=== PATIENT | female | born 1995 | race Caucasian/White ===

== ENCOUNTER 2016-11-29 10:19 | Emergency (ER) | payer MEDICAID ==
[~2016-11-29 10:19] MED LIST: GEOD60CA PO; LAMO100 PO; LORA-392 PO; MIRA33504 PO; SENN1TAB2 PO; TRIL600T PO; ZIPR20 PO; ZOFR4TAB3 SL; ZONI100C2 PO
[2016-11-29 10:21] VITALS: BP 126/73; PULSE 92; RESP 17; TEMP 98.8; O2SAT 96
[2016-11-29] MEDS ORDERED: OXCA300T PO (10:37)
--- NOTE | 2016-11-29 10:53 | PD ---
HPI Chief Complaint: Seizure Time Seen by Provider: 10:26 Travel History International Travel<30 days: No Contact w/Intl Traveler<30days: No Traveled to known affect area: No History of Present Illness HPI So 21 year-old woman with a history of cerebral palsy, seizures, BUSINESS CHANGE MANAGER shunt, vagal stimulator, who presents to the emergency department complaining of a seizure this morning. She gets seizures every couple months. They're usually focal. This morning she had right hand shaking left foot shaking consistent with her previous focal seizures. She also felt scared and confused at the time. It lasted a couple minutes. She feels back to normal now. Patient has been sick with some cough cold symptoms with some low-grade fever. She's been taking her medications otherwise as prescribed. Patient takes Zonegran, Trileptal, Lamictal History Past Medical History Narrative Medical Cerebral palsy Seizures BUSINESS CHANGE MANAGER shunt Vagal stimulator Tetanus Vaccination: > 5 Years Influenza Vaccination: Yes PNEUMOCCOCAL Vaccine (Year): 2 Social History Alcohol Use: No Tobacco Use: No Allergies-Medications (Allergen,Severity, Reaction): Coded Allergies: Cefprozil (Verified Allergy, Severe, Swelling, 11/29/16) Codeine (Verified Allergy, Severe, Nausea/Vomiting, 11/29/16) Vancomycin (Verified Allergy, Severe, Rash, 11/29/16) Reported Meds & Prescriptions Reported Meds & Active Scripts Active Reported Oxcarbazepine 300 Mg Tab 300 Mg PO BID Geodon (Ziprasidone) 60 Mg Cap 60 Mg PO HS Zonisamide 100 Mg Cap 100 Mg PO DAILY Senna-Docusate Sodium (Sennosides-Docusate Sodium) 8.6-50 Mg Tab 1 Tab PO DAILY Zofran Odt (Ondansetron Odt) 4 Mg Tab 4 Mg SL Q6HR PRN Miralax Powder (Polyethylene Glycol 3350 Powder) 17 Gm Powd 17 Gm PO DAILY Mix and dissolve one measuring cap-ful (17 grams) in water or juice. Ativan (Lorazepam) 0.5 Mg Tab 0.5 Mg PO Q6H PRN Lamictal (Lamotrigine) 100 Mg Tab 100 Mg PO BID Review of Systems Except as stated in HPI: all other systems reviewed are Neg Physical Exam Narrative GENERAL: 21-year-old young girl, no acute distress. SKIN: Warm and dry. HEAD: Atraumatic. Normocephalic. EYES: Pupils equal and round. No scleral icterus. No injection or drainage. ENT: No nasal bleeding or discharge. Mucous membranes pink and moist. NECK: Trachea midline. No JVD. CARDIOVASCULAR: Regular rate and rhythm. No murmur appreciated. RESPIRATORY: No accessory muscle use. Clear to auscultation. Breath sounds equal bilaterally. GASTROINTESTINAL: Abdomen soft, non-tender, nondistended. Hepatic and splenic margins not palpable. MUSCULOSKELETAL: Spastic paresis of the right upper extremity, decreased muscle bulk throughout. NEUROLOGICAL: Awake and alert. Evident developmental delay. No obvious cranial nerve deficits. Spastic paresis in the right upper extremity, generalized weakness. Normal speech. Data Data Last Documented VS Vital Signs Date Time Temp Pulse Resp B/P Pulse Ox O2 Delivery O2 Flow Rate FiO2 11/29/16 10:21 98.8 92 17 126/73 96 Room Air Orders Complete Blood Count With Diff (11/29/16 10:36) Comprehensive Metabolic Panel (11/29/16 10:36) Beta Hcg (Quant/Titer) (11/29/16 10:36) Labs Laboratory Tests Test 11/29/16 11:00 White Blood Count 7.3 TH/MM3 Red Blood Count 5.08 MIL/MM3 Hemoglobin 15.3 GM/DL Hematocrit 46.2 % Mean Corpuscular Volume 90.9 FL Mean Corpuscular Hemoglobin 30.0 PG Mean Corpuscular Hemoglobin 33.0 % Concent Red Cell Distribution Width 12.4 % Platelet Count 357 TH/MM3 Mean Platelet Volume 7.5 FL Neutrophils (%) (Auto) 77.5 % Lymphocytes (%) (Auto) 14.6 % Monocytes (%) (Auto) 4.2 % Eosinophils (%) (Auto) 2.2 % Basophils (%) (Auto) 1.5 % Neutrophils # (Auto) 5.6 TH/MM3 Lymphocytes # (Auto) 1.1 TH/MM3 Monocytes # (Auto) 0.3 TH/MM3 Eosinophils # (Auto) 0.2 TH/MM3 Basophils # (Auto) 0.1 TH/MM3 CBC Comment DIFF FINAL Differential Comment Sodium Level 141 MEQ/L Potassium Level 4.4 MEQ/L Chloride Level 108 MEQ/L Carbon Dioxide Level 23.3 MEQ/L Anion Gap 10 MEQ/L Blood Urea Nitrogen 11 MG/DL Creatinine 0.61 MG/DL Estimat Glomerular Filtration 125 ML/MIN Rate Random Glucose 81 MG/DL Calcium Level 8.6 MG/DL Total Bilirubin 0.3 MG/DL Aspartate Amino Transf 17 U/L (AST/SGOT) Alanine Aminotransferase 22 U/L (ALT/SGPT) Alkaline Phosphatase 93 U/L Total Protein 8.1 GM/DL Albumin 3.9 GM/DL Human Chorionic Gonadotropin, LESS THAN 1 Quant MIU/ML MDM Medical Decision Making Medical Screen Exam Complete: Yes Emergency Medical Condition: Yes Interpretation(s) Labs unremarkable. Differential Diagnosis Seizure, URI, electrolyte abnormality, other Narrative Course Medical decision making INITIAL: This a 21-year-old woman CP and seizures who had seizure typical for her, manifest as shaking in the right hand and left leg, started this morning lasted a few minutes. Normally seizures every couple months. Last seizure was a couple months ago. Looks otherwise well. We'll check electrolytes, likely continue current medications outpatient follow-up with her neurologist. Diagnosis Primary Impression: Seizure disorder Additional Instructions: Continue current medications. Follow-up with her seizure doctor for any continued seizures. Return to the emergency department for any persistent seizures lasting more than 5 minutes, seizures with prolonged confusion afterward, or [id number] seizures. Med/Other Pt SpecificInfo: No Change to Meds Disposition: 01 DISCHARGE HOME Condition: Stable Marko Huizar MD Nov 29, 2016 10:53
[2016-11-29 11:07] LABS: AUTOMATED NEUTROPHIL # 5.6 TH/MM3 (1.8-7.7); BASOPHIL # 0.1 TH/MM3 (0-0.2); BASOPHIL % 1.5 % (0.0-2.0); EOSINOPHIL # 0.2 TH/MM3 (0-0.4); EOSINOPHIL % 2.2 % (0.0-4.0); HEMATOCRIT 46.2 % (35.0-46.0); HEMO FLAGS DIFF FINAL; LYMPH % 14.6 % (9.0-44.0); LYMPHOCYTE # 1.1 TH/MM3 (1.0-4.8); MEAN CELL VOLUME 90.9 FL (80.0-100.0); MONO % 4.2 % (0.0-8.0); NEUT % 77.5 % (16.0-70.0); PLATELET COUNT 357 TH/MM3 (150-450); RED BLOOD COUNT 5.08 MIL/MM3 (4.00-5.30); RED CELL DISTRIBUTION WIDTH 12.4 % (11.6-17.2); WHITE BLOOD COUNT 7.3 TH/MM3 (4.0-11.0)
[2016-11-29 11:14] LABS: CHLORIDE 108 MEQ/L (98-107); POTASSIUM 4.4 MEQ/L (3.5-5.1); SODIUM (NA) 141 MEQ/L (136-145)
[2016-11-29 11:21] LABS: ANION GAP 10 MEQ/L (5-15); BICARBONATE 23.3 MEQ/L (21.0-32.0); BLOOD UREA NITROGEN 11 MG/DL (7-18)
[2016-11-29 11:24] LABS: ALT (GPT) 22 U/L (9-42); AST (GOT) 17 U/L (16-38); GLOMERULAR FILTRATION RATE 125 ML/MIN (>89)
[2016-11-29 11:25] LABS: TOTAL BILIRUBIN ADULT 0.3 MG/DL (0.2-1.0)
[2016-11-29 11:26] LABS: ALKALINE PHOSPHATASE 93 U/L (45-117)
[2016-11-29 11:29] LABS: BETA HCG QUANT LESS THAN 1 MIU/ML (0-5)
[2016-11-29 11:40] VITALS: BP 107/67; PULSE 86; RESP 17; O2SAT 98
== END 2016-11-29 11:50 | disposition home or self-care (01) ==
LOC: PHED 10:19
DX: G40.909 Epilepsy, unspecified, not intractable, without status epilepticus (principal); G80.9 Cerebral palsy, unspecified; Z98.2 Presence of cerebrospinal fluid drainage device
CPT/HCPCS: 80053; 84702; 85025; 99284

== ENCOUNTER 2017-07-15 17:05 | Emergency (ER) | payer MEDICAID ==
[~2017-07-15 17:05] MED LIST changes: +OXCA300T PO; -TRIL600T PO; -ZIPR20 PO
[2017-07-15 17:10] VITALS: BP 159/77; PULSE 73; RESP 20; TEMP 97.5; O2SAT 100
[2017-07-15] MEDS ORDERED: SODIUM CHLORIDE 0.9% FLUSH 10 ML FLUSH IVF PRN (17:45)
[2017-07-15] MEDS ORDERED: ONDANSETRON HCL 4 MG/2 ML VIAL IV PUSH ONE (17:45)
[2017-07-15] MEDS ORDERED: SENN8.6T88 PO (17:48)
[2017-07-15] MEDS ORDERED: CITA20TA4 PO (17:49)
--- NOTE | 2017-07-15 17:50 | PD ---
HPI Chief Complaint: Seizure Time Seen by Provider: 17:37 Travel History International Travel<30 days: No Contact w/Intl Traveler<30days: No Traveled to known affect area: No History of Present Illness HPI 22-year-old female with history of cervical palsy, ANALOG CIRCUIT DESIGNER shunt, seizure disorder, brought in by her parents for evaluation of seizures. Parents were called by her school today as the patient had apparent seizure-like activity. When her parents picked her up from school she did not appear to be having a seizure, but was having some tremulousness which is not usual for her. She has been acting post ictal and has had a couple episodes of vomiting. She takes several different epileptic medications and is followed by neurology and neurosurgery in [place]. ANALOG CIRCUIT DESIGNER shunt was revised about 16 years ago. Patient is unable to provide any history. 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.) Eye Surgery: Yes (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.) Neurologic Surgery: Yes (SHUNT, MULT SHUNT REVISIONS/Vagal nerve stimulator NS) Oral Surgery: Yes (TONGUE CLIPPING) Other Surgery: Yes (HIP, ABDUCTORS RELEASED;VAGAL NERVE STIMULATOR) Social History Alcohol Use: No Tobacco Use: No Substance Use: No Allergies-Medications (Allergen,Severity, Reaction): Coded Allergies: cefprozil (Unverified Allergy, Severe, Swelling, 07/15/17) codeine (Unverified Allergy, Severe, Nausea/Vomiting, 07/15/17) vancomycin (Unverified Allergy, Severe, Rash, 07/15/17) Reported Meds & Prescriptions Reported Meds & Active Scripts Active Reported Citalopram (Citalopram Hydrobromide) 20 Mg Tab 30 Mg PO DAILY Senna-Docusate Sodium Tablet (Sennosides/Docusate Sodium) 8.6 Mg-50 Mg Tablet 1 Tab PO BID Oxcarbazepine 300 Mg Tab 300 Mg PO BID Geodon (Ziprasidone) 60 Mg Cap 60 Mg PO HS Zonisamide 100 Mg Cap 20 Mg PO DAILY Zofran Odt (Ondansetron Odt) 4 Mg Tab 4 Mg SL Q6HR PRN Ativan (Lorazepam) 0.5 Mg Tab 0.5 Mg PO Q6H PRN Lamictal (Lamotrigine) 100 Mg Tab 150 Mg PO BID Review of Systems Except as stated in HPI: all other systems reviewed are Neg Physical Exam Narrative GENERAL: Awake, tired, no apparent distress, follows commands. SKIN: Focused skin assessment warm/dry. No rashes. HEAD: Atraumatic. Normocephalic. Right ANALOG CIRCUIT DESIGNER shunt with port that is depressible. EYES: Left cornea is clouded, the patient has no vision in this eye. Right pupil is dilated at 6 mm and reactive. No scleral icterus. No injection or drainage. ENT: No nasal bleeding or discharge. Mucous membranes pink and moist. NECK: Trachea midline. No JVD. No nuchal rigidity. CARDIOVASCULAR: Regular rate and rhythm. RESPIRATORY: No accessory muscle use. Clear to auscultation. Breath sounds equal bilaterally. GASTROINTESTINAL: Abdomen soft, non-tender, nondistended. Hepatic and splenic margins not palpable. MUSCULOSKELETAL: No clubbing. No cyanosis. No edema. Upper and lower extremity contractures. NEUROLOGICAL: Awake and drowsy. No obvious cranial nerve deficits. Motor grossly within normal limits. Data Data Last Documented VS Vital Signs Date Time Temp Pulse Resp B/P (MAP) Pulse Ox O2 Delivery O2 Flow Rate FiO2 07/15/17 18:27 100 Room Air 07/15/17 17:14 73 20 07/15/17 17:10 97.5 159/77 (104) Orders Orders Complete Blood Count With Diff (07/15/17 17:43) Ct Brain W/O Iv Contrast(Rout) (07/15/17 ) Blood Glucose (07/15/17 17:43) Ecg Monitoring (07/15/17 17:43) Iv Access Insert/Monitor (07/15/17 17:43) Oximetry (07/15/17 17:43) Comprehensive Metabolic Panel (07/15/17 17:43) Sodium Chloride 0.9% Flush (Ns Flush) (07/15/17 17:45) Shunt Series (07/15/17 ) Ondansetron Inj (Zofran Inj) (07/15/17 17:45) Ondansetron Odt (Zofran Odt) (07/15/17 18:15) Labs Laboratory Tests Test 07/15/17 17:50 White Blood Count 6.5 TH/MM3 Red Blood Count 4.72 MIL/MM3 Hemoglobin 14.3 GM/DL Hematocrit 42.8 % Mean Corpuscular Volume 90.6 FL Mean Corpuscular Hemoglobin 30.3 PG Mean Corpuscular Hemoglobin Concent 33.5 % Red Cell Distribution Width 12.3 % Platelet Count 381 TH/MM3 Mean Platelet Volume 8.2 FL Neutrophils (%) (Auto) 78.9 % Lymphocytes (%) (Auto) 13.4 % Monocytes (%) (Auto) 6.3 % Eosinophils (%) (Auto) 0.2 % Basophils (%) (Auto) 1.2 % Neutrophils # (Auto) 5.1 TH/MM3 Lymphocytes # (Auto) 0.9 TH/MM3 Monocytes # (Auto) 0.4 TH/MM3 Eosinophils # (Auto) 0.0 TH/MM3 Basophils # (Auto) 0.1 TH/MM3 CBC Comment DIFF FINAL Differential Comment Blood Urea Nitrogen 11 MG/DL Creatinine 0.70 MG/DL Random Glucose 137 MG/DL Total Protein 7.9 GM/DL Albumin 4.1 GM/DL Calcium Level 9.3 MG/DL Alkaline Phosphatase 93 U/L Aspartate Amino Transf (AST/SGOT) 15 U/L Alanine Aminotransferase (ALT/SGPT) 33 U/L Total Bilirubin 0.4 MG/DL Sodium Level 140 MEQ/L Potassium Level 4.1 MEQ/L Chloride Level 104 MEQ/L Carbon Dioxide Level 27.0 MEQ/L Anion Gap 9 MEQ/L Estimat Glomerular Filtration Rate 106 ML/MIN MDM Medical Decision Making Medical Screen Exam Complete: Yes Emergency Medical Condition: Yes Medical Record Reviewed: Yes Differential Diagnosis Breakthrough seizure, ANALOG CIRCUIT DESIGNER shunt malfunction, intracranial abnormality, meningitis /encephalitis less likely Narrative Course Vital signs reviewed. CBC is unremarkable. CMP is unremarkable. Shunt series: Intact shunt. CT head: CONCLUSION: 1. No acute intracranial abnormality. 2. 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 3. No evidence of ventriculomegaly. Patient and the patient's family were made aware of all findings. I discussed the case with the neurologist on-call who is covering for the patient's usual neurologist Dr. Darling in [place]. Patient is back to her baseline mental status. She tells me she is thirsty and is tolerating clear liquids. She can follow-up as an outpatient with them in the next 1-2 weeks. Parents were informed on when to return to the emergency department. They verbalize understanding and agreement with plan. Diagnosis Primary Impression: Breakthrough seizure Referrals: Neurologist 3 days Primary Care Physician 3 days Additional Instructions: Follow-up with your neurologist this week. Return to the emergency department for worsening symptoms or any other concerns. Disposition: 01 DISCHARGE HOME Condition: Stable Beny Wyatt MD Jul 15, 2017 17:50
[2017-07-15] MEDS ORDERED: ONDANSETRON ODT 4 MG TAB PO ONE (18:15)
[2017-07-15 18:27] VITALS: O2SAT 100
[2017-07-15 18:28] LABS: CHLORIDE 104 MEQ/L (98-107); POTASSIUM 4.1 MEQ/L (3.5-5.1); SODIUM (NA) 140 MEQ/L (136-145)
[2017-07-15 18:32] LABS: ANION GAP 9 MEQ/L (5-15); BLOOD UREA NITROGEN 11 MG/DL (7-18)
[2017-07-15 18:35] LABS: ALT (GPT) 33 U/L (10-53); AST (GOT) 15 U/L (15-37); GLOMERULAR FILTRATION RATE 106 ML/MIN (>89)
[2017-07-15 18:37] LABS: TOTAL BILIRUBIN ADULT 0.4 MG/DL (0.2-1.0)
[2017-07-15 18:38] LABS: ALKALINE PHOSPHATASE 93 U/L (45-117)
[2017-07-15 18:56] LABS: AUTOMATED NEUTROPHIL # 5.1 TH/MM3 (1.8-7.7); BASOPHIL # 0.1 TH/MM3 (0-0.2); BASOPHIL % 1.2 % (0.0-2.0); EOSINOPHIL % 0.2 % (0.0-4.0); HEMATOCRIT 42.8 % (35.0-46.0); HEMO FLAGS DIFF FINAL; LYMPH % 13.4 % (9.0-44.0); LYMPHOCYTE # 0.9 TH/MM3 (1.0-4.8); MEAN CELL VOLUME 90.6 FL (80.0-100.0); MEAN CORPUSCULAR HEMOGLOBIN 30.3 PG (27.0-34.0); MEAN CORPUSCULAR HGB CONC 33.5 % (32.0-36.0); MONO % 6.3 % (0.0-8.0); NEUT % 78.9 % (16.0-70.0); PLATELET COUNT 381 TH/MM3 (150-450); RED BLOOD COUNT 4.72 MIL/MM3 (4.00-5.30); RED CELL DISTRIBUTION WIDTH 12.3 % (11.6-17.2); WHITE BLOOD COUNT 6.5 TH/MM3 (4.0-11.0)
--- NOTE | 2017-07-15 19:02 | RADRPT ---
EXAM DATE/TIME: 07/15/2017 17:47 [facility] COMPARISON: SHUNT SERIES, July 15, 2010, 18:00. INDICATIONS : Headache. MEDICAL HISTORY : Cerebral palsy. Bronchopulmonary dysplasia. SURGICAL HISTORY : Shunt placement and revision. Vagal nerve stimulator. ENCOUNTER: Initial ACUITY: 1 day PAIN SCORE: Non-responsive. LOCATION: Bilateral head. FINDINGS: Radiograph of the skull, neck, chest and abdomen performed to evaluate shunt patency. The shunt cath eter is seen entering the frontal region region with its tip crossing midline. The catheter is continuous in its course terminating in the pelvis. No catheter disruption is identif ied. The visualized heart, lungs and abdominal structures are intact. CONCLUSION: Intact shunt. Roberto Carlos Noguera MD on July 15, 2017 at 18:58 Board Certified Radiologist. This report was verified electronically.
--- NOTE | 2017-07-15 19:23 | RADRPT ---
EXAM DATE/TIME: 07/15/2017 19:01 [facility] COMPARISON: CT BRAIN W/O CONTRAST, April 11, 2014, 17:26. INDICATIONS : Witnessed seizure. RADIATION DOSE: 56.78 CTDIvol (mGy) MEDICAL HISTORY : Seizures. SURGICAL HISTORY : PUBLIC WORKS MANAGER shunt. ENCOUNTER: Initial ACUITY: 1 day PAIN SCALE: 0/10 LOCATION: Cranial TECHNIQUE: Multiple contiguous axial images were obtained of the head. Using automated exposure control and adj ustment of the mA and/or kV according to patient size, radiation dose was kept as low as reasonably a chievable to obtain optimal diagnostic quality images. DICOM format image data is available electro nically for review and comparison. FINDINGS: The appearance of the ventricles again indicates agenesis of the corpus callosum. There is no hydron ephrosis noted. A ventriculostomy shunt is unchanged in position and traverses the right frontal lob e and has its tip in the expected region of the frontal horn of the left lateral ventricle. There is no acute hemorrhage, midline shift or extra-axial bleed. There is a calcified shrunken left globe w hich is stable. CONCLUSION: 1. No acute intracranial abnormality. 2. 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 3. No evidence of ventriculomegaly. Roberto Carlos Noguera MD on July 15, 2017 at 19:11 Board Certified Radiologist. This report was verified electronically.
[2017-07-15 20:11] VITALS: BP 123/71; TEMP 98
== END 2017-07-15 20:21 | disposition home or self-care (01) ==
LOC: PHED 17:05
DX: G40.909 Epilepsy, unspecified, not intractable, without status epilepticus (principal); G80.9 Cerebral palsy, unspecified; Z98.2 Presence of cerebrospinal fluid drainage device
CPT/HCPCS: 70250; 70450; 71010; 72040; 74000; 80053; 85025; 99284

== ENCOUNTER 2017-11-28 06:01 | Emergency (ER) | payer OTHER ==
[~2017-11-28 06:01] MED LIST changes: +CITA20TA4 PO; -MIRA33504 PO; -SENN1TAB2 PO; +SENN8.6T88 PO
[2017-11-28 06:05] VITALS: BP 145/74; PULSE 74; RESP 16; TEMP 98.2; O2SAT 98
--- NOTE | 2017-11-28 06:43 | PD ---
HPI Chief Complaint: Seizure Time Seen by Provider: 06:21 Travel History International Travel<30 days: No Contact w/Intl Traveler<30days: No Traveled to known affect area: No History of Present Illness HPI The patient is a 22-year-old female with a history of cerebral palsy and who has a seizure disorder and a CHILD NUTRITION MANAGER shunt who was brought in by her mother because she had a seizure tonight. Her mother states she always talks while she is having seizures and she talked during seizure tonight. There was only one seizure. The mother states that the seizure was slightly different in that the whole body shook. The seizure lasted at least 15 minutes. The child has been complaining of a headache in the last 24 hours. She denies having any fever. The patient, according to the mother, usually vomits after a seizure. She has not vomited yet but the vomiting can occur even an hour or more after the seizure. The CHILD NUTRITION MANAGER shunt was revised about 16 years ago. The patient is followed by Dr. Darling in [place]. He is a pediatric neurologist. She is alert and baseline mentation following the seizure. She takes Lamictal for the seizures. She also takes Ativan as needed for agitation/seizures. She also takes zone a mild to control her seizures. She also takes oxcarbazepine for the seizures. They never do levels on the oxcarbazepine according to the mother. She did not miss any of her medications. The mother states the seizure lasted about 15 minutes at least. The ambulance picked up the patient while she was seizing but they did not give any medications. The mother states the patient never gets urinary tract infections. 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.) Eye Surgery: Yes (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.) Neurologic Surgery: Yes (SHUNT, MULT SHUNT REVISIONS/Vagal nerve stimulator NS) Oral Surgery: Yes (TONGUE CLIPPING) Other Surgery: Yes (HIP, ABDUCTORS RELEASED;VAGAL NERVE STIMULATOR) Social History Alcohol Use: No Tobacco Use: No Substance Use: No Allergies-Medications (Allergen,Severity, Reaction): Coded Allergies: cefprozil (Verified Allergy, Severe, Swelling, 11/28/17) codeine (Verified Allergy, Severe, Nausea/Vomiting, 11/28/17) vancomycin (Verified Allergy, Severe, Rash, 11/28/17) Reported Meds & Prescriptions Reported Meds & Active Scripts Active Reported Citalopram (Citalopram Hydrobromide) 20 Mg Tab 30 Mg PO DAILY Senna-Docusate Sodium Tablet (Sennosides/Docusate Sodium) 8.6 Mg-50 Mg Tablet 1 Tab PO BID Oxcarbazepine 300 Mg Tab 300 Mg PO BID Geodon (Ziprasidone) 60 Mg Cap 60 Mg PO HS Zonisamide 100 Mg Cap 20 Mg PO DAILY Zofran Odt (Ondansetron Odt) 4 Mg Tab 4 Mg SL Q6HR PRN Ativan (Lorazepam) 0.5 Mg Tab 0.5 Mg PO Q6H PRN Lamictal (Lamotrigine) 100 Mg Tab 150 Mg PO BID Review of Systems ROS Limitations: Poor Historian Except as stated in HPI: all other systems reviewed are Neg Physical Exam Exam Limitations: Poor Historian Narrative GENERAL: The patient is alert, talkative in no apparent distress. Her vital signs show blood pressure 145/74 but otherwise normal. She is smiling and talkative. SKIN: Focused skin assessment warm/dry. HEAD: Atraumatic. Normocephalic. EYES: Pupils equal and round. No scleral icterus. No injection or drainage. ENT: No nasal bleeding or discharge. Mucous membranes pink and moist. NECK: Trachea midline. No JVD. CARDIOVASCULAR: Regular rate and rhythm. No murmur appreciated. RESPIRATORY: No accessory muscle use. Clear to auscultation. Breath sounds equal bilaterally. GASTROINTESTINAL: Abdomen soft, non-tender, nondistended. Hepatic and splenic margins not palpable. The patient has some atrophy and contractures of the right arm and both legs. She can move her left arm although she does have some contractures of the fingers. MUSCULOSKELETAL: No obvious deformities. No clubbing. No cyanosis. No edema. NEUROLOGICAL: Awake and alert. No obvious cranial nerve deficits. Motor grossly within normal limits. Normal speech. PSYCHIATRIC: Appropriate mood and affect; insight and judgment normal. Data Data Last Documented VS Vital Signs Date Time Temp Pulse Resp B/P (MAP) Pulse Ox O2 Delivery O2 Flow Rate FiO2 11/28/17 06:05 98.2 74 16 145/74 (97) 98 Orders Orders Shunt Series (11/28/17 ) Ct Brain W/O Iv Contrast(Rout) (11/28/17 06:33) Complete Blood Count With Diff (11/28/17 06:33) Comprehensive Metabolic Panel (11/28/17 06:33) Urinalysis - C+S If Indicated (11/28/17 06:33) Lorazepam Inj (Ativan Inj) (11/28/17 06:45) Labs Laboratory Tests Test 11/28/17 06:30 White Blood Count 5.3 TH/MM3 Red Blood Count 4.72 MIL/MM3 Hemoglobin 14.0 GM/DL Hematocrit 43.3 % Mean Corpuscular Volume 91.8 FL Mean Corpuscular Hemoglobin 29.6 PG Mean Corpuscular Hemoglobin Concent 32.3 % Red Cell Distribution Width 12.7 % Platelet Count 304 TH/MM3 Mean Platelet Volume 7.5 FL Neutrophils (%) (Auto) 74.5 % Lymphocytes (%) (Auto) 16.6 % Monocytes (%) (Auto) 6.6 % Eosinophils (%) (Auto) 1.5 % Basophils (%) (Auto) 0.8 % Neutrophils # (Auto) 3.9 TH/MM3 Lymphocytes # (Auto) 0.9 TH/MM3 Monocytes # (Auto) 0.4 TH/MM3 Eosinophils # (Auto) 0.1 TH/MM3 Basophils # (Auto) 0.0 TH/MM3 CBC Comment DIFF FINAL Differential Comment MDM Medical Decision Making Medical Screen Exam Complete: Yes Emergency Medical Condition: Yes Medical Record Reviewed: Yes Differential Diagnosis Breakthrough seizure, noncompliance to medications-unlikely, electrolyte disorder, shunt malfunction, intracranial bleed-highly unlikely, encephalitis/ meningitis-extremely unlikely Narrative Course The patient is transferred to Dr. Mack. If the imaging/blood work is normal, the patient will likely be discharged to follow-up with Dr. Darling. Juan Ac MD Nov 28, 2017 06:43
[2017-11-28] MEDS ORDERED: LORazepam 2 MG/ML VIAL IV PUSH ONE (06:45)
[2017-11-28 06:58] LABS: AUTOMATED NEUTROPHIL # 3.9 TH/MM3 (1.8-7.7); BASOPHIL % 0.8 % (0.0-2.0); EOSINOPHIL # 0.1 TH/MM3 (0-0.4); EOSINOPHIL % 1.5 % (0.0-4.0); HEMATOCRIT 43.3 % (35.0-46.0); LYMPH % 16.6 % (9.0-44.0); LYMPHOCYTE # 0.9 TH/MM3 (1.0-4.8); MEAN CELL VOLUME 91.8 FL (80.0-100.0); MEAN CORPUSCULAR HEMOGLOBIN 29.6 PG (27.0-34.0); MEAN CORPUSCULAR HGB CONC 32.3 % (32.0-36.0); MEAN PLATELET VOLUME 7.5 FL (7.0-11.0); MONO % 6.6 % (0.0-8.0); MONOCYTE # 0.4 TH/MM3 (0-0.9); NEUT % 74.5 % (16.0-70.0); PLATELET COUNT 304 TH/MM3 (150-450); RED BLOOD COUNT 4.72 MIL/MM3 (4.00-5.30); RED CELL DISTRIBUTION WIDTH 12.7 % (11.6-17.2); WHITE BLOOD COUNT 5.3 TH/MM3 (4.0-11.0)
[2017-11-28 07:12] LABS: CHLORIDE 109 MEQ/L (98-107); SODIUM (NA) 139 MEQ/L (136-145)
[2017-11-28 07:15] LABS: CALCIUM 8.7 MG/DL (8.5-10.1)
[2017-11-28 07:16] LABS: ALBUMIN 3.9 GM/DL (3.4-5.0); BICARBONATE 23.5 MEQ/L (21.0-32.0); BLOOD UREA NITROGEN 12 MG/DL (7-18); GLUCOSE,RANDOM 89 MG/DL (74-106)
[2017-11-28 07:19] LABS: ALT (GPT) 21 U/L (10-53); AST (GOT) 16 U/L (15-37); CREATININE 0.61 MG/DL (0.50-1.00); GLOMERULAR FILTRATION RATE 124 ML/MIN (>89)
[2017-11-28 07:21] LABS: TOTAL BILIRUBIN ADULT 0.3 MG/DL (0.2-1.0); TOTAL PROTEIN 7.6 GM/DL (6.4-8.2)
[2017-11-28 07:22] VITALS: BP 133/64; PULSE 82; RESP 18; O2SAT 97
[2017-11-28 07:22] LABS: ALKALINE PHOSPHATASE 71 U/L (45-117)
--- NOTE | 2017-11-28 07:30 | RADRPT ---
EXAM DATE/TIME: 11/28/2017 07:10 [facility] COMPARISON: CT BRAIN W/O CONTRAST, July 15, 2017, 19:01. INDICATIONS : Cephalgia. Possible seizure. RADIATION DOSE: 50.79 CTDIvol (mGy) ; Patient motion MEDICAL HISTORY : Seizures. Cerebral palsy. SURGICAL HISTORY : AV Shunt ENCOUNTER: Initial ACUITY: 1 day PAIN SCALE: 7/10 LOCATION: cranial TECHNIQUE: Multiple contiguous axial images were obtained of the head. Using automated exposure control and adj ustment of the mA and/or kV according to patient size, radiation dose was kept as low as reasonably a chievable to obtain optimal diagnostic quality images. DICOM format image data is available electro nically for review and comparison. FINDINGS: CEREBRUM: The ventricles are normal for age. No evidence of midline shift, mass lesion, hemorrhage or acute in farction. No extra-axial fluid collections are seen. Agenesis of the corpus callosum again noted. Ri ght ventriculostomy catheter again present. The tip is in the left lateral ventricle. POSTERIOR FOSSA: The cerebellum and brainstem are intact. The 4th ventricle is midline. The cerebellopontine angle i s unremarkable. EXTRACRANIAL: The visualized portion of the orbits is intact. SKULL: No acute skull abnormality. CONCLUSION: No acute intracranial abnormality. Shunted patient with congenital brain abnormalities. No ventriculo megaly. Emmett Cervantes MD on November 28, 2017 at 7:25 Board Certified Radiologist. This report was verified electronically.
--- NOTE | 2017-11-28 07:32 | RADRPT ---
EXAM DATE/TIME: 11/28/2017 06:55 [facility] COMPARISON: SHUNT SERIES, July 15, 2017, 17:47. INDICATIONS : Seizures, headache. MEDICAL HISTORY : cerebral palsy, seizures, evp head of [employer]g [employer] strategy shunt SURGICAL HISTORY : evp head of [employer]g [employer] strategy shunt ENCOUNTER: Initial ACUITY: 1 day PAIN SCORE: 0/10 LOCATION: Bilateral cranial FINDINGS: Radiograph of the skull, neck, chest and abdomen performed to evaluate shunt patency. The shunt cath eter is seen entering the right frontal region with its tip in the region of the body of the left lat eral ventricle. The catheter is continuous in its course terminating in the right lower quadrant peritoneal space No catheter disruption is identified. The visualized heart, lungs and abdominal structures are intact. CONCLUSION: Intact shunt. Emmett Cervantes MD on November 28, 2017 at 7:28 Board Certified Radiologist. This report was verified electronically.
[2017-11-28 08:11] LABS: BILIRUBIN, URINE NEG (NEG); BLOOD, URINE NEG (NEG); GLUCOSE,URINE NEG (NEG); KETONE, URINE 15 mg/dL (NEG); NITRITE,URINE NEG (NEG); URINE LEUKOCYTE ESTERASE NEG (NEG)
[2017-11-28 08:16] LABS: SQUAMOUS EPITHELIAL CELL URINE 0-5 /hpf (0-5); URINE COLOR STRAW (YELLW/STRAW); WBC, URINE 0-2 /hpf (0-5)
[2017-11-28 08:17] LABS: AMORPHOUS SEDIMENT, URINE MOD
--- NOTE | 2017-11-28 08:23 | PD ---
Physical Exam Date Seen by Provider: Nov 28, 2017 Time Seen by Provider: 07:00 Narrative Patient signed out to me by Dr. Ac at 7 AM, please see Dr. Ac patient is here after a note for further details. Patient is here after his seizure. Awaiting workup and CAT scan with plans for release back to neurology for breakthrough seizure of otherwise unremarkable. She had a vomiting episode in the ER but otherwise r is doing well. Zofran was given for the nausea and vomiting. Mom states that this is not unusual for her. Laboratory Tests Test 11/28/17 06:30 11/28/17 07:55 Neutrophils (%) (Auto) 74.5 % (16.0-70.0) Lymphocytes # (Auto) 0.9 TH/MM3 (1.0-4.8) Chloride Level 109 MEQ/L (98-107) Urine Turbidity CLOUDY (CLEAR) Urine Ketones 15 mg/dL (NEG) Last [address] 11/28/17 0633 Signed Impressions: Service Date/Time: November 07:10 - CONCLUSION: No acute intracranial abnormality. Shunted patient with congenital brain abnormalities. No ventriculomegaly. Emmett Cervantes MD Shunt Study (Imaging) 11/28/17 0000 Signed Impressions: Service Date/Time: November 06:55 - CONCLUSION: Intact shunt. Emmett Cervantes MD Shuntogram was negative for any signs of acute processes. It shunt appears to be intact. No acute intracranial abnormalities. Lab work was otherwise unremarkable for any significant metabolic issues. At this point, plan would be to release her with follow-up to neurology as previously discussed with Dr. Ac. The plan was discussed with mom and she states understanding. Return for any worsening of symptoms. Data Data Last Documented VS Vital Signs Date Time Temp Pulse Resp B/P (MAP) Pulse Ox O2 Delivery O2 Flow Rate FiO2 11/28/17 07:22 82 18 133/64 (87) 97 Room Air 11/28/17 06:05 98.2 Orders Orders Shunt Series (11/28/17 ) Ct Brain W/O Iv Contrast(Rout) (11/28/17 06:33) Complete Blood Count With Diff (11/28/17 06:33) Comprehensive Metabolic Panel (11/28/17 06:33) Urinalysis - C+S If Indicated (11/28/17 06:33) Lorazepam Inj (Ativan Inj) (11/28/17 06:45) Ondansetron Inj (Zofran Inj) (11/28/17 08:30) Labs Laboratory Tests Test 11/28/17 06:30 11/28/17 07:55 White Blood Count 5.3 TH/MM3 Red Blood Count 4.72 MIL/MM3 Hemoglobin 14.0 GM/DL Hematocrit 43.3 % Mean Corpuscular Volume 91.8 FL Mean Corpuscular Hemoglobin 29.6 PG Mean Corpuscular Hemoglobin Concent 32.3 % Red Cell Distribution Width 12.7 % Platelet Count 304 TH/MM3 Mean Platelet Volume 7.5 FL Neutrophils (%) (Auto) 74.5 % Lymphocytes (%) (Auto) 16.6 % Monocytes (%) (Auto) 6.6 % Eosinophils (%) (Auto) 1.5 % Basophils (%) (Auto) 0.8 % Neutrophils # (Auto) 3.9 TH/MM3 Lymphocytes # (Auto) 0.9 TH/MM3 Monocytes # (Auto) 0.4 TH/MM3 Eosinophils # (Auto) 0.1 TH/MM3 Basophils # (Auto) 0.0 TH/MM3 CBC Comment DIFF FINAL Differential Comment Blood Urea Nitrogen 12 MG/DL Creatinine 0.61 MG/DL Random Glucose 89 MG/DL Total Protein 7.6 GM/DL Albumin 3.9 GM/DL Calcium Level 8.7 MG/DL Alkaline Phosphatase 71 U/L Aspartate Amino Transf (AST/SGOT) 16 U/L Alanine Aminotransferase (ALT/SGPT) 21 U/L Total Bilirubin 0.3 MG/DL Sodium Level 139 MEQ/L Potassium Level 3.9 MEQ/L Chloride Level 109 MEQ/L Carbon Dioxide Level 23.5 MEQ/L Anion Gap 7 MEQ/L Estimat Glomerular Filtration Rate 124 ML/MIN Urine Collection Type CATH Urine Color STRAW Urine Turbidity CLOUDY Urine pH 8.0 Urine Specific [place] 1.017 Urine Protein NEG mg/dL Urine Glucose (UA) NEG mg/dL Urine Ketones 15 mg/dL Urine Occult Blood NEG Urine Nitrite NEG Urine Bilirubin NEG Urine Leukocyte Esterase NEG Urine WBC 0-2 /hpf Urine Squamous Epithelial Cells 0-5 /hpf Urine Amorphous Sediment MOD Microscopic Urinalysis Comment CULT NOT [facility] Medical Record Reviewed: Yes Supervised Visit with EKATERINA: No Diagnosis Primary Impression: Breakthrough seizure Disposition: DISCHARGE HOME Condition: Stable Almas Gonzalez MD Nov 28, 2017 08:23
[2017-11-28] MEDS ORDERED: ONDANSETRON HCL 4 MG/2 ML VIAL IV PUSH ONE (08:30)
[2017-11-28 08:39] VITALS: BP 140/67
[2017-11-28] MEDS ORDERED: ZONI100C2 PO (21:23)
[2017-11-29] MEDS ORDERED: ZONI1CAP17 PO (11:54)
== END 2017-11-28 08:40 | disposition home or self-care (01) ==
LOC: PHED 06:01
DX: G40.909 Epilepsy, unspecified, not intractable, without status epilepticus (principal); G80.9 Cerebral palsy, unspecified; R51 Headache; R11.10 Vomiting, unspecified
CPT/HCPCS: 70250; 70450; 71045; 72040; 74018; 80053; 81001; 85025; 96374; 96375; 99284; J2060; J2405

== ENCOUNTER 2017-11-28 17:01 | Observation (INO) | payer OTHER ==
[2017-11-28 17:06] VITALS: BP 135/77; PULSE 90; RESP 18; TEMP 98.1; O2SAT 96
[2017-11-28] MEDS ORDERED: SODIUM CHLOR 0.9% 1000 ML INJ 1,000 ML IV SCH ×2 (18:03→20:00)
[2017-11-28] MEDS ORDERED: ONDANSETRON HCL 4 MG/2 ML VIAL IVP ONE (18:15)
[2017-11-28] MEDS ORDERED: SODIUM CHLORIDE 0.9% FLUSH 10 ML FLUSH IV FLUSH PRN ×2 (18:15→19:15)
[2017-11-28 18:32] LABS: AUTOMATED NEUTROPHIL # 8.4 TH/MM3 (1.8-7.7); BASOPHIL # 0.4 TH/MM3 (0-0.2); BASOPHIL % 3.8 % (0.0-2.0); EOSINOPHIL % 0.1 % (0.0-4.0); HEMATOCRIT 43.3 % (35.0-46.0); HEMOGLOBIN 14.4 GM/DL (11.6-15.3); LYMPH % 7.4 % (9.0-44.0); LYMPHOCYTE # 0.7 TH/MM3 (1.0-4.8); MEAN CELL VOLUME 90.4 FL (80.0-100.0); MEAN CORPUSCULAR HEMOGLOBIN 30.1 PG (27.0-34.0); MEAN CORPUSCULAR HGB CONC 33.3 % (32.0-36.0); MEAN PLATELET VOLUME 7.6 FL (7.0-11.0); MONO % 4.9 % (0.0-8.0); MONOCYTE # 0.5 TH/MM3 (0-0.9); NEUT % 83.8 % (16.0-70.0); PLATELET COUNT 333 TH/MM3 (150-450); RED BLOOD COUNT 4.79 MIL/MM3 (4.00-5.30); WHITE BLOOD COUNT 10.1 TH/MM3 (4.0-11.0)
--- NOTE | 2017-11-28 18:33 | PD ---
HPI Chief Complaint: GI Complaint Time Seen by Provider: 18:03 Travel History International Travel<30 days: No Contact w/Intl Traveler<30days: No Traveled to known affect area: No History of Present Illness HPI 22 year old female with history of cerebral palsy and seizures with placement of REHABILITATION SERVICES AIDE shunt returns to ER for evaluation of multiple episodes of N/V since leaving the ED earlier today. The patient was seen in ED earlier today for evaluation s/p seizure at home; CT head, shunt evaluation and lab work today was normal and she was D/Cd home with PO Zofran and instructions for outpatient follow up. Per mother, the patient vomited X 10 times at home; she had PO intake after Dcd however vomited after eating and has not been able to tolerate PO since. She had another seizure after discharge which lasted one minute which is normal per mother. The mother contacted the neurologist who recommended she returned to the ED. The patient complains of body aches and general malaise. Denies diarrhea, fevers, CP, SOB, [place]IL[place]. Risk Factors:Seizure history Modifying Factors:[None] Associated sign and symptoms: nausea, vomiting 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.) Eye Surgery: Yes (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.) Neurologic Surgery: Yes (SHUNT, MULT SHUNT REVISIONS/Vagal nerve stimulator NS) Oral Surgery: Yes (TONGUE CLIPPING) Other Surgery: Yes (HIP, ABDUCTORS RELEASED;VAGAL NERVE STIMULATOR) Social History Alcohol Use: No Tobacco Use: No Substance Use: No Allergies-Medications (Allergen,Severity, Reaction): Coded Allergies: cefprozil (Verified Allergy, Severe, Swelling, 11/28/17) codeine (Verified Allergy, Severe, Nausea/Vomiting, 11/28/17) vancomycin (Verified Allergy, Severe, Rash, 11/28/17) Reported Meds & Prescriptions Reported Meds & Active Scripts Active Reported Citalopram (Citalopram Hydrobromide) 20 Mg Tab 30 Mg PO DAILY Senna-Docusate Sodium Tablet (Sennosides/Docusate Sodium) 8.6 Mg-50 Mg Tablet 1 Tab PO BID Oxcarbazepine 300 Mg Tab 300 Mg PO BID Geodon (Ziprasidone) 60 Mg Cap 60 Mg PO HS Zonisamide 100 Mg Cap 20 Mg PO DAILY Zofran Odt (Ondansetron Odt) 4 Mg Tab 4 Mg SL Q6HR PRN Ativan (Lorazepam) 0.5 Mg Tab 0.5 Mg PO Q6H PRN Lamictal (Lamotrigine) 100 Mg Tab 150 Mg PO BID Review of Systems Except as stated in HPI: all other systems reviewed are Neg Physical Exam Narrative GENERAL: Underdeveloped female, talkative with mother in room. No mild distress. SKIN: Warm and dry. HEAD: Atraumatic. Normocephalic. EYES: Leukocoria to left eye, chronic. No scleral icterus. No injection or drainage. ENT: No nasal bleeding or discharge. Mucous membranes pink and moist. NECK: Trachea midline. No JVD. CARDIOVASCULAR: Regular rate and rhythm. RESPIRATORY: No accessory muscle use. Clear to auscultation. Breath sounds equal bilaterally. GASTROINTESTINAL: Abdomen soft, non-tender, nondistended. Hepatic and splenic margins not palpable. MUSCULOSKELETAL: Extremities without clubbing, cyanosis, or edema. No obvious deformities. Patient with contractures to all extremities consistent with CP. NEUROLOGICAL: Awake and alert. No obvious cranial nerve deficits. Motor grossly within normal limits. Five out of 5 muscle strength in the arms and legs. Normal speech. PSYCHIATRIC: Appropriate mood and affect; insight and judgment normal. Data Data Last Documented VS Vital Signs Date Time Temp Pulse Resp B/P (MAP) Pulse Ox O2 Delivery O2 Flow Rate FiO2 11/28/17 18:40 106 18 120/67 (84) 96 Room Air 11/28/17 17:06 98.1 Orders Orders Complete Blood Count With Diff (11/28/17 18:03) Comprehensive Metabolic Panel (11/28/17 18:03) Lipase (11/28/17 18:03) Iv Access Insert/Monitor (11/28/17 18:03) Ecg Monitoring (11/28/17 18:03) Oximetry (11/28/17 18:03) Ondansetron Inj (Zofran Inj) (11/28/17 18:15) Sodium Chlor 0.9% 1000 Ml Inj (Ns 1000 M (11/28/17 18:03) Sodium Chloride 0.9% Flush (Ns Flush) (11/28/17 18:15) Influenzae A/B Antigen (11/28/17 18:03) Place In Observation (11/28/17 ) Vital Signs (Adult) Q4H (11/28/17 19:10) Activity Bed Rest (11/28/17 19:10) Diet Npo (11/29/17 Breakfast) Sodium Chlor 0.9% 1000 Ml Inj (Ns 1000 M (11/28/17 19:10) Sodium Chloride 0.9% Flush (Ns Flush) (11/28/17 19:15) Sodium Chloride 0.9% Flush (Ns Flush) (11/28/17 21:00) Acetaminophen (Tylenol) (11/28/17 19:15) Ondansetron Inj (Zofran Inj) (11/28/17 19:15) Comprehensive Metabolic Panel (11/29/17 06:00) Complete Blood Count With Diff (11/29/17 06:00) Naloxone Inj (Narcan Inj) (11/28/17 19:15) Docusate Sodium-Senna (Karis-Colace) (11/28/17 21:00) Magnesium Hydroxide Liq (Milk Of Magnesi (11/28/17 19:15) Sennosides (Senokot) (11/28/17 19:15) Bisacodyl Supp (Dulcolax Supp) (11/28/17 19:15) Lactulose Liq (Lactulose Liq) (11/28/17 19:15) Admit Order (Ed Use Only) (11/28/17 19:09) Labs Laboratory Tests Test 11/28/17 18:20 White Blood Count 10.1 TH/MM3 Red Blood Count 4.79 MIL/MM3 Hemoglobin 14.4 GM/DL Hematocrit 43.3 % Mean Corpuscular Volume 90.4 FL Mean Corpuscular Hemoglobin 30.1 PG Mean Corpuscular Hemoglobin Concent 33.3 % Red Cell Distribution Width 12.0 % Platelet Count 333 TH/MM3 Mean Platelet Volume 7.6 FL Neutrophils (%) (Auto) 83.8 % Lymphocytes (%) (Auto) 7.4 % Monocytes (%) (Auto) 4.9 % Eosinophils (%) (Auto) 0.1 % Basophils (%) (Auto) 3.8 % Neutrophils # (Auto) 8.4 TH/MM3 Lymphocytes # (Auto) 0.7 TH/MM3 Monocytes # (Auto) 0.5 TH/MM3 Eosinophils # (Auto) 0.0 TH/MM3 Basophils # (Auto) 0.4 TH/MM3 CBC Comment DIFF FINAL Differential Comment Blood Urea Nitrogen 11 MG/DL Creatinine 0.69 MG/DL Random Glucose 108 MG/DL Total Protein 8.2 GM/DL Albumin 4.3 GM/DL Calcium Level 9.2 MG/DL Alkaline Phosphatase 79 U/L Aspartate Amino Transf (AST/SGOT) 14 U/L Alanine Aminotransferase (ALT/SGPT) 21 U/L Total Bilirubin 0.4 MG/DL Sodium Level 137 MEQ/L Potassium Level 3.6 MEQ/L Chloride Level 106 MEQ/L Carbon Dioxide Level 23.6 MEQ/L Anion Gap 7 MEQ/L Estimat Glomerular Filtration Rate 107 ML/MIN Lipase 151 U/L MDM Medical Decision Making Medical Screen Exam Complete: Yes Emergency Medical Condition: Yes Medical Record Reviewed: Yes Interpretation(s) Laboratory Tests Test 11/28/17 18:20 Neutrophils (%) (Auto) 83.8 % (16.0-70.0) Lymphocytes (%) (Auto) 7.4 % (9.0-44.0) Basophils (%) (Auto) 3.8 % (0.0-2.0) Neutrophils # (Auto) 8.4 TH/MM3 (1.8-7.7) Lymphocytes # (Auto) 0.7 TH/MM3 (1.0-4.8) Basophils # (Auto) 0.4 TH/MM3 (0-0.2) Random Glucose 108 MG/DL (74-106) Aspartate Amino Transf (AST/SGOT) 14 U/L (15-37) Differential Diagnosis Dehydration versus metabolic issues versus obstruction versus ongoing seizures, vomiting Narrative Course Abdomen is benign and I do not suspect any acute intra-abdominal process. Lab work did not show significant dehydration. Patient apparently did not stop vomiting after being released. CT of the brain initially this morning was unremarkable for any signs of acute processes and the shunt appears to be functioning. However, she had further breakthrough seizure at home as well. Patient was given IV fluids and Zofran in the ER IV. At this point, my plan would be to admit the patient for further observation of multiple seizures and vomiting. Case is discussed with Dr. Jacobs for admission. Diagnosis Primary Impression: Seizures Additional Impression: Vomiting Admitting Information Admitting Physician Requests: Admit Almas Gonzalez MD Nov 28, 2017 18:33
[2017-11-28 18:40] VITALS: BP 120/67; PULSE 106; RESP 18; O2SAT 96
[2017-11-28 18:43] LABS: CHLORIDE 106 MEQ/L (98-107); SODIUM (NA) 137 MEQ/L (136-145)
[2017-11-28 18:46] LABS: ALBUMIN 4.3 GM/DL (3.4-5.0)
[2017-11-28 18:47] LABS: BICARBONATE 23.6 MEQ/L (21.0-32.0); BLOOD UREA NITROGEN 11 MG/DL (7-18); CALCIUM 9.2 MG/DL (8.5-10.1); GLUCOSE,RANDOM 108 MG/DL (74-106)
[2017-11-28 18:50] LABS: ALT (GPT) 21 U/L (10-53); AST (GOT) 14 U/L (15-37); CREATININE 0.69 MG/DL (0.50-1.00); GLOMERULAR FILTRATION RATE 107 ML/MIN (>89)
[2017-11-28 18:52] LABS: TOTAL BILIRUBIN ADULT 0.4 MG/DL (0.2-1.0); TOTAL PROTEIN 8.2 GM/DL (6.4-8.2)
[2017-11-28 18:53] LABS: ALKALINE PHOSPHATASE 79 U/L (45-117)
[2017-11-28] MEDS ORDERED: ONDANSETRON HCL 4 MG/2 ML VIAL IVP PRN (19:15)
[2017-11-28] MEDS ORDERED: BISACODYL 10 MG SUPP RECTAL PRN (19:15)
[2017-11-28] MEDS ORDERED: NALOXONE HCL 0.4 MG/ML AMP IV PUSH PRN (19:15)
[2017-11-28] MEDS ORDERED: LACTULOSE SYRUP 20 GM/30 ML CUP PO PRN (19:15)
[2017-11-28] MEDS ORDERED: SENNOSIDES 8.6 MG TAB PO PRN (19:15)
[2017-11-28] MEDS ORDERED: MAGNESIUM HYDROXIDE SUSP 30 ML CUP PO PRN (20:00)
[2017-11-28] MEDS ORDERED: ACETAMINOPHEN 325 MG TAB PO PRN (20:00)
[2017-11-28 20:03] VITALS: BP 119/75; PULSE 106; RESP 18; O2SAT 96
[2017-11-28 21:00] VITALS: BP 127/70; PULSE 110; RESP 20; TEMP 98.7; O2SAT 95
[2017-11-28] MEDS ORDERED: ZONI100C2 PO (21:23)
[2017-11-28] MEDS: SODIUM CHLORIDE 0.9% FLUSH 10 ML FLUSH IV FLUSH SCH (22:33)
[2017-11-28] MEDS: DOCUSATE SODIUM 50 MG/SENNA 8.6 MG TAB PO SCH (22:33)
[2017-11-28] MEDS ORDERED: OXcarbazepine 300 MG TAB PO ONE (23:30)
[2017-11-28] MEDS ORDERED: ZONISAMIDE 100 MG CAP PO ONE (23:30)
[2017-11-28] MEDS ORDERED: ZIPRASIDONE HCL 60 MG CAP PO ONE (23:30)
[2017-11-28] MEDS ORDERED: lamoTRIgine 100 MG TAB PO ONE (23:30)
[2017-11-28] MEDS ORDERED: PILL SPLITTER OTHER PRN (23:30)
[2017-11-29] VITALS: BP 121/67; PULSE 83; RESP 16; TEMP 99.2; O2SAT 96
[2017-11-29 04:00] VITALS: BP 104/61; PULSE 70; RESP 16; TEMP 98.2; O2SAT 98
[2017-11-29 08:00] VITALS: BP 100/59; PULSE 75; RESP 13; TEMP 97.4; O2SAT 96
[2017-11-29] MEDS ORDERED: LORazepam 0.5 MG TAB PO PRN (08:00)
[2017-11-29] MEDS: SODIUM CHLORIDE 0.9% FLUSH 10 ML FLUSH IV FLUSH SCH (09:00)
[2017-11-29] MEDS ORDERED: CITALOPRAM HYDROBROMIDE 20 MG TAB PO SCH (09:00)
[2017-11-29] MEDS ORDERED: ZONISAMIDE 100 MG CAP PO SCH ×2 (09:00)
[2017-11-29] MEDS ORDERED: lamoTRIgine 100 MG TAB PO SCH (09:00)
[2017-11-29] MEDS ORDERED: OXcarbazepine 300 MG TAB PO SCH (09:00)
[2017-11-29] MEDS ORDERED: PNEUMOCOCCAL POLYVALENT INJ 25 MCG/0.5 ML SYR IM ONE (09:00)
[2017-11-29 10:03] LABS: AUTOMATED NEUTROPHIL # 4.6 TH/MM3 (1.8-7.7); BASOPHIL % 0.6 % (0.0-2.0); EOSINOPHIL % 0.6 % (0.0-4.0); HEMATOCRIT 38.5 % (35.0-46.0); HEMOGLOBIN 12.9 GM/DL (11.6-15.3); LYMPH % 17.1 % (9.0-44.0); MEAN CELL VOLUME 90.1 FL (80.0-100.0); MEAN CORPUSCULAR HEMOGLOBIN 30.1 PG (27.0-34.0); MEAN CORPUSCULAR HGB CONC 33.5 % (32.0-36.0); MEAN PLATELET VOLUME 7.9 FL (7.0-11.0); MONO % 6.6 % (0.0-8.0); MONOCYTE # 0.4 TH/MM3 (0-0.9); NEUT % 75.1 % (16.0-70.0); PLATELET COUNT 275 TH/MM3 (150-450); RED BLOOD COUNT 4.28 MIL/MM3 (4.00-5.30)
[2017-11-29 10:17] LABS: CHLORIDE 112 MEQ/L (98-107); SODIUM (NA) 141 MEQ/L (136-145)
[2017-11-29 10:25] LABS: CALCIUM 8.4 MG/DL (8.5-10.1)
[2017-11-29 10:29] LABS: ALBUMIN 3.6 GM/DL (3.4-5.0); ALT (GPT) 19 U/L (10-53); AST (GOT) 22 U/L (15-37); BICARBONATE 20.5 MEQ/L (21.0-32.0); BLOOD UREA NITROGEN 7 MG/DL (7-18); CREATININE 0.56 MG/DL (0.50-1.00); GLOMERULAR FILTRATION RATE 137 ML/MIN (>89); GLUCOSE,RANDOM 81 MG/DL (74-106)
[2017-11-29 10:31] LABS: ALKALINE PHOSPHATASE 68 U/L (45-117); TOTAL PROTEIN 7.1 GM/DL (6.4-8.2)
[2017-11-29 10:32] LABS: TOTAL BILIRUBIN ADULT 0.7 MG/DL (0.2-1.0)
[2017-11-29] MEDS: DOCUSATE SODIUM 50 MG/SENNA 8.6 MG TAB PO SCH (10:57)
--- NOTE | 2017-11-29 11:50 | HHI.HP ---
[facility] Service [facility] Primary Care Physician Ememtt Casiano M.D. Admission Diagnosis Multiple seizures/intractable vomiting Diagnoses: (1) Intractable nausea and vomiting Diagnosis: Principal (2) Intractable seizure disorder Diagnosis: Principal Chief Complaint: Intractable nausea vomiting Travel History International Travel<30 Days: No Contact w/Intl Traveler <30 Da: No Traveled to Known Affected Are: No History of Present Illness Is a quite pleasant 22-year-old female with known history of intractable seizures, cerebral palsy, normal pressure hydrocephalus who presented to hospital because of intractable nausea vomiting. Information was taken from mother at bedside. Patient does have intractable seizures and she does have a rather attentive neurologist stated just had the medication increase to Zonegran 300 mg daily. They still have to pick the prescription up from the pharmacy. However the patient has had seizures at home which is not unfamiliar to the mother, however the patient started having nausea and vomiting. She indicates that she usually does vomit after she has seizures but yesterday she was not able to eat or drink anything without vomiting. Patient originally came to emergency department and had CT scan and shunt study performed which all appear to be normal. Patient was discharged but she came back because she cannot stop having nausea vomiting. Because of those reasons is recommended by the ER physician that the patient be observed in the hospital. At the time evaluating the patient this morning she is feeling much better. She is hungry and is waiting her father and her food Review of Systems Gastrointestinal: COMPLAINS OF: Nausea, Vomiting Neurologic: COMPLAINS OF: Seizures Except as stated in HPI: all other systems reviewed are Neg Past Family Social History Past Medical History Cerebral palsy Intractable seizures Normal pressure hydrocephalus Premature retinopathy with left eye blindness Past Surgical History MANAGER EQUITY shunt Hip abductor release Left eye surgery for retinal detachment Bilateral inguinal hernia repair Tongue clipping Vagal nerve stimulator Reported Medications Reported Meds & Active Scripts Active Reported Zonisamide 100 Mg Cap 100 Mg PO DAILY Citalopram (Citalopram Hydrobromide) 20 Mg Tab 30 Mg PO DAILY Senna-Docusate Sodium Tablet (Sennosides/Docusate Sodium) 8.6 Mg-50 Mg Tablet 1 Tab PO BID Oxcarbazepine 300 Mg Tab 300 Mg PO BID Geodon (Ziprasidone) 60 Mg Cap 60 Mg PO HS Zonisamide 300 Mg Cap 300 Mg PO DAILY Zofran Odt (Ondansetron Odt) 4 Mg Tab 4 Mg SL Q6HR PRN Ativan (Lorazepam) 0.5 Mg Tab 0.5 Mg PO Q6H PRN Lamictal (Lamotrigine) 100 Mg Tab 150 Mg PO BID Allergies: Coded Allergies: cefprozil (Verified Allergy, Severe, Swelling, 11/28/17) codeine (Verified Allergy, Severe, Nausea/Vomiting, 11/28/17) vancomycin (Verified Allergy, Severe, Rash, 11/28/17) Family History Reviewed is significant for mother with lupus, antiphospholipid syndrome, sjogren syndrome Social History Patient not use any tobacco, alcohol or illicit drugs Physical Exam Vital Signs Vital Signs Date Time Temp Pulse Resp B/P (MAP) Pulse Ox O2 Delivery O2 Flow Rate FiO2 11/29/17 08:00 97.4 75 13 100/59 (73) 96 11/29/17 04:00 98.2 70 16 104/61 (75) 98 11/29/17 00:00 99.2 83 16 121/67 (85) 96 11/28/17 21:00 98.7 110 20 127/70 (89) 95 11/28/17 20:26 11/28/17 20:03 106 18 119/75 (90) 96 Room Air 11/28/17 20:03 18 11/28/17 18:40 106 18 120/67 (84) 96 Room Air 11/28/17 17:06 98.1 90 18 135/77 (96) 96 Physical Exam GENERAL: Rather small stature female, well-nourished, in no acute distress. alert and orientated HEENT: Head is normocephalic without any lesions or masses noted. Facial features are symmetric. Eyes: Obvious left eye abnormality. Extraocular muscles are intact. Conjunctivae were clear. Oropharyngeal: Pharynx without any erythema edema. Tongue is midline without deviation. Buccal mucosa is moist without any masses or lesions NECK: Supple without any masses. Trachea midline no deviation. No JVD, no bruits are appreciated CARDIAC: Regular rhythm, regular rate. S1/S2 are heard. No murmurs gallops or rubs. LUNGS: Clear to auscultation bilaterally. No wheeze, rhonchi or rales. No use of accessory muscles on inspiration or expiration. ABDOMEN: Soft, nontender. Nondistended. Bowel sounds heard in all 4 quadrants. No organomegaly or masses. Negative rebound, negative guarding EXTREMITIES: No edema, pulses are equal bilaterally. No cyanosis or clubbing NEUROLOGY: Mood and affect appear appropriate. Cranial nerves II through XII grossly intact. Laboratory Laboratory Tests Test 11/28/17 18:20 11/29/17 09:15 White Blood Count 10.1 6.0 Red Blood Count 4.79 4.28 Hemoglobin 14.4 12.9 Hematocrit 43.3 38.5 Mean Corpuscular Volume 90.4 90.1 Mean Corpuscular Hemoglobin 30.1 30.1 Mean Corpuscular Hemoglobin Concent 33.3 33.5 Red Cell Distribution Width 12.0 12.0 Platelet Count 333 275 Mean Platelet Volume 7.6 7.9 Neutrophils (%) (Auto) 83.8 75.1 Lymphocytes (%) (Auto) 7.4 17.1 Monocytes (%) (Auto) 4.9 6.6 Eosinophils (%) (Auto) 0.1 0.6 Basophils (%) (Auto) 3.8 0.6 Neutrophils # (Auto) 8.4 4.6 Lymphocytes # (Auto) 0.7 1.0 Monocytes # (Auto) 0.5 0.4 Eosinophils # (Auto) 0.0 0.0 Basophils # (Auto) 0.4 0.0 CBC Comment DIFF FINAL DIFF FINAL Differential Comment Blood Urea Nitrogen 11 7 Creatinine 0.69 0.56 Random Glucose 108 81 Total Protein 8.2 7.1 Albumin 4.3 3.6 Calcium Level 9.2 8.4 Alkaline Phosphatase 79 68 Aspartate Amino Transf (AST/SGOT) 14 22 Alanine Aminotransferase (ALT/SGPT) 21 19 Total Bilirubin 0.4 0.7 Sodium Level 137 141 Potassium Level 3.6 3.6 Chloride Level 106 112 Carbon Dioxide Level 23.6 20.5 Anion Gap 7 9 Estimat Glomerular Filtration Rate 107 137 Lipase 151 Lactic Acid Level 0.6 Thyroid Stimulating Hormone 3rd Gen 4.610 Date/Time Source Procedure Growth Status 11/28/17 18:18 Nasal Washing Influenza Types A,B Antigen (MONO) - Final NEGATIVE FOR FLU A AND B ANTIGEN.... Complete Result Diagram: 11/29/1791411/29/17914 Caprini VTE Risk Assessment Caprini VTE Risk Assessment: No/Low Risk (score <= 1) Caprini Risk Assessment Model Point Value = 1 Point Value = 2 Point Value = 3 Point Value = 5 Age 41-60 Minor surgery BMI > 25 kg/m2 Swollen legs Varicose veins or History of unexplained or recurrent spontaneous Oral contraceptives or hormone replacement Sepsis (< 1 month) Serious lung disease, including pneumonia (< 1 month) Abnormal pulmonary function Acute myocardial infarction Congestive heart failure (< 1 month) History of inflammatory bowel disease Medical patient at bed rest Age 61-74 Arthroscopic surgery Major open surgery (> 45 min) Laparoscopic surgery (> 45 min) Malignancy Confined to bed (> 72 hours) Immobilizing plaster cast Central venous access Age >= 75 History of VTE Family history of VTE Factor V Leiden Prothrombin [id number] Lupus anticoagulant Anticardiolipin antibodies Elevated serum homocysteine Heparin-induced thrombocytopenia Other congenital or acquired thrombophilia Stroke (< 1 month) Elective arthroplasty Hip, pelvis, or leg fracture Acute spinal cord injury (< 1 month) Prophylaxis Regimen Total Risk Factor Score Risk Level Prophylaxis Regimen 0-1 Low Early ambulation 2 Moderate Order ONE of the following: *Sequential Compression Device (SCD) *Heparin 5000 units SQ BID 3-4 Higher Order ONE of the following medications: *Heparin 5000 units SQ TID *Enoxaparin/Lovenox 40 mg SQ daily (WT < 150 kg, CrCl > 30 mL/min) *Enoxaparin/Lovenox 30 mg SQ daily (WT < 150 kg, CrCl > 10-29 mL/min) *Enoxaparin/Lovenox 30 mg SQ BID (WT < 150 kg, CrCl > 30 mL/min) AND/OR *Sequential Compression Device (SCD) 5 or more Highest Order ONE of the following medications: *Heparin 5000 units SQ TID (Preferred with Epidurals) *Enoxaparin/Lovenox 40 mg SQ daily (WT < 150 kg, CrCl > 30 mL/min) *Enoxaparin/Lovenox 30 mg SQ daily (WT < 150 kg, CrCl > 10-29 mL/min) *Enoxaparin/Lovenox 30 mg SQ BID (WT < 150 kg, CrCl > 30 mL/min) AND *Sequential Compression Device (SCD) Assessment and Plan Assessment and Plan Intractable nausea vomiting Continue Zofran Advance diet as tolerated Intractable seizures Ativan as needed for seizures Continue increased dose of Zonegran Continue home antiepileptics Seizure precautions Discussed with on-call neurologist, who indicated continuation of her home medications, Ativan as needed and outpatient follow-up with her neurologist Discharge disposition Discharge home in stable condition if tolerates diet Activity: Ad kali. Diet: Regular diet Medications per medication reconciliation Follow-up with primary medical doctor in one week Odell Ac Nov 29, 2017 11:50
--- NOTE | 2017-11-29 11:52 | HHI.DCPOC ---
Discharge Care Plan Diagnosis: (1) Intractable nausea and vomiting Goals to Promote Your Health * To prevent worsening of your condition and complications * To maintain your health at the optimal level Directions to Meet Your Goals Take your medications as prescribed Follow your dietary instruction Follow activity as directed Keep your appointments as scheduled Take your immunizations and boosters as scheduled If your symptoms worsen call your PCP, if no PCP go to Urgent Care Center or Emergency Room Smoking is Dangerous to Your Health. Avoid second hand smoke Call the 24-hour hour crisis hotline for domestic abuse at Odell Ac Nov 29, 2017 11:52
[2017-11-29] MEDS ORDERED: ZONI1CAP17 PO (11:54)
[2017-11-29 12:00] VITALS: BP 116/70; PULSE 93; RESP 15; TEMP 97.9; O2SAT 94
[2017-11-29] MEDS ORDERED: ZIPRASIDONE HCL 60 MG CAP PO SCH (21:00)
--- NOTE | 2017-11-30 07:25 | MG ---
cc: BAUTISTA HART MD Lab No: [id number] Date: 11/29/2017 : 1995 Sex: F INDICATION A 22-year-old with history of intractable seizures on his seizure medications and Ativan. Cerebral palsy. DESCRIPTION Mild theta delta frequencies in the background. Bilateral frontal central region tiny sharp waves, severe debility noted. Disorganized waveforms occurring. Frontal sharp transients noted. Mild asymmetric left hemispheric slowing. Reasonably good EEG variability. Limited driving with photic stimulation. Single lead EKG showing sinus rhythm. INTERPRETATION Mild to moderate encephalopathy. Mild cortical irritability although no active seizure activity. Clinical correlation. Bautista Hart MD MG/BT /9:31 PM /7:16 AM
[2017-12-03 17:50] LABS: LAMOTRIGINE 5.2 mcg/mL (4.0-18.0)
== END 2017-11-29 16:19 | disposition home or self-care (01) ==
LOC: PHED 17:01 → PHEDA 19:12 → PH3B 20:32
PROVIDERS: ADMIT Hospitalist; ATTEND Hospitalist
DX: R11.2 Nausea with vomiting, unspecified (principal); G40.919 Epilepsy, unspecified, intractable, without status epilepticus; G80.9 Cerebral palsy, unspecified; R53.81 Other malaise; Z79.899 Other long term (current) drug therapy; H44.532 Leucocoria, left eye; G91.2 (Idiopathic) normal pressure hydrocephalus; H54.62 Unqualified visual loss, left eye, normal vision right eye; H35.109 Retinopathy of prematurity, unspecified, unspecified eye; Z98.2 Presence of cerebrospinal fluid drainage device; G93.40 Encephalopathy, unspecified; Z23 Encounter for immunization
CPT/HCPCS: 80053; 80175; 80183; 83605; 83690; 84443; 85025; 87804; 90471; 90732; 95819; 96361; 96374; 99285; G0378; J2405; J7030; G0009

== ENCOUNTER 2018-02-18 12:37 | Inpatient (IN) | payer OTHER ==
[~2018-02-18 12:37] MED LIST changes: -ZONI100C2 PO; +ZONI1CAP17 PO
[2018-02-18 12:43] VITALS: BP 129/67; PULSE 78; RESP 18; TEMP 99; O2SAT 99
--- NOTE | 2018-02-18 12:50 | PD ---
HPI Chief Complaint: Seizure Time Seen by Provider: 12:50 Travel History International Travel<30 days: No Contact w/Intl Traveler<30days: No Traveled to known affect area: No History of Present Illness HPI 22-year-old female came to the emergency room brought by EMS for seizure. Patient has CP and history of seizures. She is on seizure medication. Her mother is here with her who is giving additional history. As per the mother patient has seizures once in 2-3 months and she has been taking her medication like she supposed to. Her neurologist is in [place]. Today the seizure lasted a little bit longer and she had 2 successive seizures which usually is not the case. Hence mother was concerned and called 911. Currently patient is seizure- free and is awake and talking. As per the mother she is at her baseline. Mom notices patient doing some facial grimaces every once in a while which is not normal for her. Vital signs are stable. PFSH Past Medical History Narrative Medical List of her past medical, surgical, social and family history is reviewed from the nursing note. Asthma: No Heart Rhythm Problems: No Cardiovascular Problems: No Cerebral Palsy: Yes (BORN AT 24 WEEKS) COPD: No Developmental Delay: Yes Diminished Hearing: No Gastrointestinal Disorders: Yes GERD: No Gestational Age in Weeks: 24 Genitourinary: No Headaches: Yes Hiatal Hernia: No Hypertension: No Musculoskeletal: No Neurologic: Yes (HX- CP) Reproductive: No Respiratory: No Immunizations Current: Yes Seizures: Yes Sickle Cell Disease: No Sleep Apnea: No PNEUMOCCOCAL Vaccine (Year): 2 Past Surgical History Abdominal Surgery: Yes (BILAT INGUINAL HERNIA REPAIR.) Ear Surgery: Yes (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.) Eye Surgery: Yes (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.) Neurologic Surgery: Yes (SHUNT, MULT SHUNT REVISIONS/Vagal nerve stimulator NS) Oral Surgery: Yes (TONGUE CLIPPING) Other Surgery: Yes (HIP, ABDUCTORS RELEASED;VAGAL NERVE STIMULATOR) Social History Alcohol Use: No Tobacco Use: No Substance Use: No Allergies-Medications (Allergen,Severity, Reaction): Coded Allergies: cefprozil (Verified Allergy, Severe, Swelling, 02/18/18) codeine (Verified Allergy, Severe, Nausea/Vomiting, 02/18/18) vancomycin (Verified Allergy, Severe, Rash, 02/18/18) Comments List of her allergies reviewed from the nursing note Reported Meds & Prescriptions Reported Meds & Active Scripts Active Zonegran (Zonisamide) 100 Mg Cap 300 Mg PO DAILY Reported Citalopram (Citalopram Hydrobromide) 20 Mg Tab 30 Mg PO DAILY Senna-Docusate Sodium Tablet (Sennosides/Docusate Sodium) 8.6 Mg-50 Mg Tablet 1 Tab PO BID Oxcarbazepine 300 Mg Tab 300 Mg PO BID Zofran Odt (Ondansetron Odt) 4 Mg Tab 4 Mg SL Q6HR PRN Ativan (Lorazepam) 0.5 Mg Tab 0.5 Mg PO Q6H PRN Lamictal (Lamotrigine) 100 Mg Tab 150 Mg PO BID Narrative Medication List of her home medications reviewed from the nursing note Review of Systems Except as stated in HPI: all other systems reviewed are Neg Neurologic: Positive: Seizures Physical Exam Narrative GENERAL: Awake, alert, CP, MR SKIN: Focused skin assessment warm/dry. HEAD: Atraumatic. Normocephalic. EYES: Pupils equal and round. No scleral icterus. No injection or drainage. ENT: No nasal bleeding or discharge. Tongue is dry and coated. NECK: Trachea midline. No JVD. CARDIOVASCULAR: Regular rate and rhythm. No murmur appreciated. RESPIRATORY: No accessory muscle use. Clear to auscultation. Breath sounds equal bilaterally. GASTROINTESTINAL: Abdomen soft, non-tender, nondistended. Hepatic and splenic margins not palpable. MUSCULOSKELETAL: No obvious deformities. No clubbing. No cyanosis. No edema. NEUROLOGICAL: Awake and alert. Patient has some mental retardation. No obvious cranial nerve deficits. 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 Normal speech. PSYCHIATRIC: Appropriate mood and affect; insight and judgment normal. Data Data Last Documented VS Vital Signs Date Time Temp Pulse Resp B/P (MAP) Pulse Ox O2 Delivery O2 Flow Rate FiO2 02/18/18 15:00 86 14 120/62 (81) 98 Room Air 02/18/18 12:43 99.0 Orders Orders Complete Blood Count With Diff (02/18/18 12:58) Basic Metabolic Panel (Bmp) (02/18/18 12:58) Blood Glucose (02/18/18 12:58) Ecg Monitoring (02/18/18 12:58) Iv Access Insert/Monitor (02/18/18 12:58) Oximetry (02/18/18 12:58) Sodium Chloride 0.9% Flush (Ns Flush) (02/18/18 13:00) Lorazepam Inj (Ativan Inj) (02/18/18 13:00) Ua Includes Microscopic (02/18/18 12:58) Sodium Chlor 0.9% 1000 Ml Inj (Ns 1000 M (02/18/18 13:00) Magnesium (Mg) (02/18/18 12:58) ^ Straight Catheter (02/18/18 12:58) Ed Discharge Order (02/18/18 14:06) Sodium Chlor 0.9% 1000 Ml Inj (Ns 1000 M (02/18/18 14:15) Ct Brain W/O Iv Contrast(Rout) (02/18/18 ) Oxcarbazepine Liq (Trileptal Liq) (02/18/18 16:30) Labs Laboratory Tests Test 02/18/18 13:12 02/18/18 13:23 White Blood Count 5.0 TH/MM3 Red Blood Count 4.37 MIL/MM3 Hemoglobin 13.0 GM/DL Hematocrit 39.4 % Mean Corpuscular Volume 90.2 FL Mean Corpuscular Hemoglobin 29.8 PG Mean Corpuscular Hemoglobin Concent 33.1 % Red Cell Distribution Width 12.5 % Platelet Count 277 TH/MM3 Mean Platelet Volume 7.4 FL Neutrophils (%) (Auto) 78.7 % Lymphocytes (%) (Auto) 14.1 % Monocytes (%) (Auto) 6.3 % Eosinophils (%) (Auto) 0.4 % Basophils (%) (Auto) 0.5 % Neutrophils # (Auto) 3.9 TH/MM3 Lymphocytes # (Auto) 0.7 TH/MM3 Monocytes # (Auto) 0.3 TH/MM3 Eosinophils # (Auto) 0.0 TH/MM3 Basophils # (Auto) 0.0 TH/MM3 CBC Comment DIFF FINAL Differential Comment Blood Urea Nitrogen 9 MG/DL Creatinine 0.58 MG/DL Random Glucose 85 MG/DL Calcium Level 8.9 MG/DL Magnesium Level 1.8 MG/DL Sodium Level 141 MEQ/L Potassium Level 4.0 MEQ/L Chloride Level 108 MEQ/L Carbon Dioxide Level 24.0 MEQ/L Anion Gap 9 MEQ/L Estimat Glomerular Filtration Rate 131 ML/MIN Urine Color LIGHT-YELLOW Urine Turbidity CLEAR Urine pH 8.0 Urine Specific [place] 1.018 Urine Protein TRACE mg/dL Urine Glucose (UA) NEG mg/dL Urine Ketones 80 mg/dL Urine Occult Blood NEG Urine Nitrite NEG Urine Bilirubin NEG Urine Urobilinogen LESS THAN 2.0 MG/DL Urine Leukocyte Esterase NEG Urine Squamous Epithelial Cells 2 /hpf Urine Mucus FEW /lpf MDM Medical Decision Making Medical Screen Exam Complete: Yes Emergency Medical Condition: Yes Medical Record Reviewed: Yes Differential Diagnosis Seizure disorder, seizure Narrative Course 2:09 PM blood test results are back and within normal limits. UA is negative except for some ketonuria. Patient was given 1 L of IV fluid bolus and IV Ativan. Have ordered a second liter. Patient can be discharged. She will need to follow-up with her neurologist. 4:30 PM mother was uncomfortable taking the patient home because she said that her facial grimace continued and now her left hand is twitching. Based on this I ordered a CT of her head. When patient came back from the CAT scan she had a full-blown tonic-clonic seizure for 30 seconds. She received 2 mg of IV Ativan. Mother told me that she had called patient's neurologist on the phone and they had increased her dose of Lamictal from 300 twice daily to 600 in the morning and 900 mg at night. I have ordered 900 mg p.o. Lamictal for her here. Her seizures have stopped. I have admitted her to the hospitalist for observation. Procedures EKG Prior to Arrival: No Diagnosis Primary Impression: Seizure disorder Additional Impressions: Seizures Dehydration Admitting Information Admitting Physician Requests: Observation Additional Instructions: Follow-up with your neurologist. Call the office to get an appointment soon. Continue taking all the seizure medication like he supposed to. Drink lots of fluid. Med/Other Pt SpecificInfo: No Change to Meds Disposition: 01 DISCHARGE HOME Condition: Stable Fredis Upton MD Feb 18, 2018 12:50
[2018-02-18] MEDS ORDERED: SODIUM CHLORIDE 0.9% FLUSH 10 ML FLUSH IVF PRN (13:00)
[2018-02-18] MEDS ORDERED: LORazepam 2 MG/ML VIAL IVS ONE (13:00)
[2018-02-18] MEDS ORDERED: SODIUM CHLOR 0.9% 1000 ML INJ 1,000 ML IV ONE ×2 (13:00→14:15)
[2018-02-18 13:37] LABS: BILIRUBIN, URINE NEG (NEG); BLOOD, URINE NEG (NEG); GLUCOSE,URINE NEG (NEG); KETONE, URINE 80 mg/dL (NEG); MUCUS URINE FEW /lpf (OCC); NITRITE,URINE NEG (NEG); SQUAMOUS EPITHELIAL CELL URINE 2 /hpf (0-5); URINE COLOR LIGHT-YELLOW (YELLW/STRAW); URINE LEUKOCYTE ESTERASE NEG (NEG)
[2018-02-18 13:45] LABS: AUTOMATED NEUTROPHIL # 3.9 TH/MM3 (1.8-7.7); BASOPHIL % 0.5 % (0.0-2.0); EOSINOPHIL % 0.4 % (0.0-4.0); HEMATOCRIT 39.4 % (35.0-46.0); LYMPH % 14.1 % (9.0-44.0); LYMPHOCYTE # 0.7 TH/MM3 (1.0-4.8); MEAN CELL VOLUME 90.2 FL (80.0-100.0); MEAN CORPUSCULAR HEMOGLOBIN 29.8 PG (27.0-34.0); MEAN CORPUSCULAR HGB CONC 33.1 % (32.0-36.0); MEAN PLATELET VOLUME 7.4 FL (7.0-11.0); MONO % 6.3 % (0.0-8.0); MONOCYTE # 0.3 TH/MM3 (0-0.9); NEUT % 78.7 % (16.0-70.0); PLATELET COUNT 277 TH/MM3 (150-450); RED BLOOD COUNT 4.37 MIL/MM3 (4.00-5.30); RED CELL DISTRIBUTION WIDTH 12.5 % (11.6-17.2)
[2018-02-18 14:03] LABS: CALCIUM 8.9 MG/DL (8.5-10.1); CREATININE 0.58 MG/DL (0.50-1.00); MAGNESIUM 1.8 MG/DL (1.5-2.5)
[2018-02-18 15:00] VITALS: BP 120/62; PULSE 86; RESP 14; O2SAT 98
--- NOTE | 2018-02-18 16:23 | RADRPT ---
EXAM DATE/TIME: 02/18/2018 16:02 [facility] COMPARISON: CT BRAIN W/O CONTRAST, November 28, 2017, 7:10. INDICATIONS : Altered mental status. RADIATION DOSE: 26.11 CTDIvol (mGy) MEDICAL HISTORY : Seizures. cerebral palsy SURGICAL HISTORY : None. ENCOUNTER: Initial ACUITY: 1 day PAIN SCALE: 0/10 LOCATION: cranial TECHNIQUE: Multiple contiguous axial images were obtained of the head. Using automated exposure control and adj ustment of the mA and/or kV according to patient size, radiation dose was kept as low as reasonably a chievable to obtain optimal diagnostic quality images. DICOM format image data is available electro nically for review and comparison. FINDINGS: CEREBRUM: Right frontal ventriculostomy catheter is again seen with the tip in the region of the antrum or in t he left lateral ventricle. No change in size of the ventricles. Ventricles are not enlarged. No evide nce of midline shift, mass lesion, hemorrhage or acute infarction. No extra-axial fluid collections are seen. POSTERIOR FOSSA: The cerebellum and brainstem are intact. The 4th ventricle is midline. The cerebellopontine angle i s unremarkable. EXTRACRANIAL: The visualized portion of the orbits is intact. SKULL: The calvaria is intact. No evidence of skull fracture. CONCLUSION: Ventriculostomy catheter unchanged. Size of ventricles unchanged. No acute intracrani al findings identified. Andres Collier MD on February 18, 2018 at 16:20 Board Certified Radiologist. This report was verified electronically.
[2018-02-18] MEDS ORDERED: OXcarbazepine SUSP 300 MG/5 ML UDC PO ONE (16:30)
[2018-02-18] MEDS ORDERED: NALOXONE HCL 0.4 MG/ML AMP IV PUSH PRN (16:45)
[2018-02-18] MEDS ORDERED: SODIUM CHLORIDE 0.9% FLUSH 10 ML FLUSH IV FLUSH PRN (16:45)
[2018-02-18] MEDS ORDERED: LORazepam 2 MG/ML VIAL IV PUSH PRN (16:45)
[2018-02-18 17:46] VITALS: BP 128/66; PULSE 84; RESP 19; TEMP 98.7; O2SAT 97
[2018-02-18] MEDS: SODIUM CHLOR 0.9% 1000 ML INJ 1,000 ML IV SCH (18:05)
--- NOTE | 2018-02-18 18:17 | HHI.HP ---
HPI Service [facility] Primary Care Physician Emmett Casiano M.D. Admission Diagnosis Breakthrough seizures Diagnoses: Travel History International Travel<30 Days: No Contact w/Intl Traveler <30 Da: No Traveled to Known Affected Are: No History of Present Illness hx from patient, her mom at bedside, ER MD and review of medical records pt herself is able to give hx only limitedly as both her mom and her nursing aid at bedside reported that her complaints sometimes maybe unreliable, due to her baseline status. She is extremely pleasant, but answers sometimes yes to a question, which a few minutes later she would answer no to. mom woke up at 4 00a.m,, mom checked on her, she was fine then hard her said "mom i am shaking " mom saw her left foot shaking saw her eyes blinking nad moving fast stated she could tell on her daughter's voice swiped her vagal nerve stimulator usually this would stop seizures, but this time did not then mom went to living room got zofraan and lorazepam and then called 911 - because it was lasting 5-6 min usually it is focal motor seizures and give her meds by mouth -usually able to swallow even with seizures then when ems came, mom decided not to send her to hospital at 1230pm. mom was in bathroom patient called her out again left foot and her right hand shaking really bad then as well thus called 911 second time and decided to come to ER on ROS, has been feeling warm but not sure if thermometer works here in ER, low grade fever had diarrhea just this morning, once only, smells terrible not on antibiotics was sneezing a lot lately usually,seizures are only every few months seizure meds- zonegren was increased from 200mg po qhs to 300mg po qhs about a month ago today, mom called her neurologist and they increased trileptal from 300mg po bid , to 600mg po am and 900mg po qhs per ER MD, pt had tonic clonic seizure, witnessed, while in ER , after she came back from CT Review of Systems Except as stated in HPI: all other systems reviewed are Neg Past Family Social History Past Medical History low baseline BP seasonal allergies- but uses nebs when she gets a cold 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 RN shunts 2 months age,in 1998- had revision done peritonitis- from CONSULTANT RN shunt - around 2000- whole new ones placed- no further complications after that 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, weighed 1lb and 4 ounces then cerebral palsy Past Surgical History [employer] shunts and revision tongue clipped as baby bilateral hernia repair as baby abductor release hand sx for CP as well Allergies: Coded Allergies: cefprozil (Verified Allergy, Severe, Swelling, 02/18/18) codeine (Verified Allergy, Severe, Nausea/Vomiting, 02/18/18) vancomycin (Verified Allergy, Severe, Rash, 02/18/18) Family History mother- lupus maternal grandma and aunts and cousins- dm Social History never smoked or drank or drugs goes to [employer] mostly wheel chair bound or walker outside of home, at home she walks with 1 person assist Physical Exam Vital Signs Vital Signs Date Time Temp Pulse Resp B/P (MAP) Pulse Ox O2 Delivery O2 Flow Rate FiO2 02/18/18 17:46 98.7 84 19 128/66 (86) 97 02/18/18 15:00 86 14 120/62 (81) 98 Room Air 02/18/18 12:43 99.0 78 18 129/67 (87) 99 Physical Exam GENERAL: This is a thin small lady , very pleasant, not in distress, . SKIN: No rashes, ecchymoses or lesions. Cool and dry. HEAD: Atraumatic. Normocephalic. No temporal or scalp tenderness. EYES: left eye retionpathy No scleral icterus. No injection or drainage. ENT: Nose without bleeding, purulent drainage or septal hematoma. Airway patent. NECK: Trachea midline. No JVD . Supple, nontender, no meningeal signs. CARDIOVASCULAR: Regular rate and rhythm without murmurs, gallops, or rubs. RESPIRATORY: Clear to auscultation. Breath sounds equal bilaterally. No wheezes , rales, or rhonchi. GASTROINTESTINAL: Abdomen soft, non-tender, nondistended. No guarding. MUSCULOSKELETAL: Extremities without clubbing, cyanosis, or edema. No calf tenderness. bilateral LE muscle atrophy/ small limbs due to CP NEUROLOGICAL: Awake and alert. Normal speech. Laboratory Laboratory Tests Test 02/18/18 13:12 02/18/18 13:23 White Blood Count 5.0 Red Blood Count 4.37 Hemoglobin 13.0 Hematocrit 39.4 Mean Corpuscular Volume 90.2 Mean Corpuscular Hemoglobin 29.8 Mean Corpuscular Hemoglobin Concent 33.1 Red Cell Distribution Width 12.5 Platelet Count 277 Mean Platelet Volume 7.4 Neutrophils (%) (Auto) 78.7 Lymphocytes (%) (Auto) 14.1 Monocytes (%) (Auto) 6.3 Eosinophils (%) (Auto) 0.4 Basophils (%) (Auto) 0.5 Neutrophils # (Auto) 3.9 Lymphocytes # (Auto) 0.7 Monocytes # (Auto) 0.3 Eosinophils # (Auto) 0.0 Basophils # (Auto) 0.0 CBC Comment DIFF FINAL Differential Comment Blood Urea Nitrogen 9 Creatinine 0.58 Random Glucose 85 Calcium Level 8.9 Magnesium Level 1.8 Sodium Level 141 Potassium Level 4.0 Chloride Level 108 Carbon Dioxide Level 24.0 Anion Gap 9 Estimat Glomerular Filtration Rate 131 Urine Color LIGHT-YELLOW Urine Turbidity CLEAR Urine pH 8.0 Urine Specific [place] 1.018 Urine Protein TRACE Urine Glucose (UA) NEG Urine Ketones 80 Urine Occult Blood NEG Urine Nitrite NEG Urine Bilirubin NEG Urine Urobilinogen LESS THAN 2.0 Urine Leukocyte Esterase NEG Urine Squamous Epithelial Cells 2 Urine Mucus FEW Result Diagram: 02/18/18 1312 02/18/18 1312 Imaging Last [address] 02/18/18 0000 Signed Impressions: Service Date/Time: Sunday, February 18, 2018 16:02 - CONCLUSION: Ventriculostomy catheter unchanged. Size of ventricles unchanged. No acute intracranial findings identified. Andres Collier MD Chest X-Ray 02/18/18 0000 Signed Impressions: Service Date/Time: Sunday, February 18, 2018 19:18 - CONCLUSION: No evidence of acute cardiopulmonary disease. MD Tara Perezi VTE Risk Assessment Caprini VTE Risk Assessment: Mod/High Risk (score >= 2) Caprini Risk Assessment Model Point Value = 1 Point Value = 2 Point Value = 3 Point Value = 5 Age 41-60 Minor surgery BMI > 25 kg/m2 Swollen legs Varicose veins or History of unexplained or recurrent spontaneous Oral contraceptives or hormone replacement Sepsis (< 1 month) Serious lung disease, including pneumonia (< 1 month) Abnormal pulmonary function Acute myocardial infarction Congestive heart failure (< 1 month) History of inflammatory bowel disease Medical patient at bed rest Age 61-74 Arthroscopic surgery Major open surgery (> 45 min) Laparoscopic surgery (> 45 min) Malignancy Confined to bed (> 72 hours) Immobilizing plaster cast Central venous access Age >= 75 History of VTE Family history of VTE Factor V Leiden Prothrombin [id number] Lupus anticoagulant Anticardiolipin antibodies Elevated serum homocysteine Heparin-induced thrombocytopenia Other congenital or acquired thrombophilia Stroke (< 1 month) Elective arthroplasty Hip, pelvis, or leg fracture Acute spinal cord injury (< 1 month) Prophylaxis Regimen Total Risk Factor Score Risk Level Prophylaxis Regimen 0-1 Low Early ambulation 2 Moderate Order ONE of the following: *Sequential Compression Device (SCD) *Heparin 5000 units SQ BID 3-4 Higher Order ONE of the following medications: *Heparin 5000 units SQ TID *Enoxaparin/Lovenox 40 mg SQ daily (WT < 150 kg, CrCl > 30 mL/min) *Enoxaparin/Lovenox 30 mg SQ daily (WT < 150 kg, CrCl > 10-29 mL/min) *Enoxaparin/Lovenox 30 mg SQ BID (WT < 150 kg, CrCl > 30 mL/min) AND/OR *Sequential Compression Device (SCD) 5 or more Highest Order ONE of the following medications: *Heparin 5000 units SQ TID (Preferred with Epidurals) *Enoxaparin/Lovenox 40 mg SQ daily (WT < 150 kg, CrCl > 30 mL/min) *Enoxaparin/Lovenox 30 mg SQ daily (WT < 150 kg, CrCl > 10-29 mL/min) *Enoxaparin/Lovenox 30 mg SQ BID (WT < 150 kg, CrCl > 30 mL/min) AND *Sequential Compression Device (SCD) Assessment and Plan Assessment and Plan Impression: Breakthrough seizures - x3 in past 24hrs, one witnessed tonic clonic in ER Cerebral Palsy Co morbid conditions: low baseline BP seasonal allergies- but uses nebs when she gets a cold 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 RN shunts 2 months age,in 1998- had revision done peritonitis- from CONSULTANT RN shunt - around 2000- whole new ones placed- no further complications after that 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 Mom can make appointment SCD Discussed Condition With patient, mom, ER Physician Certification 2 Midnight Certification Type: Admission for Inpatient Services Order for Inpatient Services The services are ordered in accordance with Medicare regulations or non- Medicare payer requirements, as applicable. In the case of services not specified as inpatient-only, they are appropriately provided as inpatient services in accordance with the 2-midnight benchmark. Estimated LOS (days): 2 days is the estimated time the patient will need to remain in the hospital, assuming treatment plan goals are met and no additional complications. Post-Hospital Plan: Home Sada Orozco MD Feb 18, 2018 18:17
[2018-02-18] MEDS ORDERED: ONDANSETRON ODT 4 MG TAB SL PRN (18:30)
[2018-02-18] MEDS ORDERED: PILL SPLITTER OTHER PRN (18:45)
--- NOTE | 2018-02-18 19:39 | RADRPT ---
EXAM DATE/TIME: 02/18/2018 19:18 [facility] COMPARISON: No previous studies available for comparison. INDICATIONS : Cough. MEDICAL HISTORY : Seizures. cerebral palsy SURGICAL HISTORY : Pacemaker. Shunt. ENCOUNTER: Initial ACUITY: 1 day PAIN SCORE: 0/10 LOCATION: Bilateral chest FINDINGS: A single view of the chest demonstrates the lungs to be symmetrically aerated without evidence of mas s, infiltrate or effusion. The cardiomediastinal contours are unremarkable. Osseous structures are intact. CONCLUSION: No evidence of acute cardiopulmonary disease. Emmett Cervantes MD on February 18, 2018 at 19:36 Board Certified Radiologist. This report was verified electronically.
--- NOTE | 2018-02-18 19:41 | RADRPT ---
EXAM DATE/TIME: 02/18/2018 19:19 [facility] COMPARISON: No previous studies available for comparison. INDICATIONS : Shunt patency. MEDICAL HISTORY : Seizures. cerebral palsy. SURGICAL HISTORY : Pacemaker. ENCOUNTER: Initial ACUITY: 1 day PAIN SCORE: 0/10 LOCATION: Bilateral abdomen. FINDINGS: Radiograph of the skull, neck, chest and abdomen performed to evaluate shunt patency. The shunt cath eter is seen entering the right frontal region with its tip in the region of the body of the right la teral ventricle. The catheter is continuous in its course terminating in the lower abdominal peritoneal space. No cath eter disruption is identified. There is some redundancy of the catheter and focal looping within the soft tissues of the right side of the neck which is new. The visualized heart, lungs and abdominal structures are intact. CONCLUSION: Intact shunt but there is a kink in the catheter within the soft tissues of the right side of the nec k. Emmett Cervantes MD on February 18, 2018 at 19:37 Board Certified Radiologist. This report was verified electronically.
[2018-02-18 20:00] VITALS: BP 123/66; PULSE 108; RESP 18; TEMP 98.5; O2SAT 94
[2018-02-18] MEDS: DOCUSATE SODIUM 50 MG/SENNA 8.6 MG TAB PO SCH (21:21)
[2018-02-18] MEDS: ZIPRASIDONE HCL 60 MG CAP PO SCH (21:21)
[2018-02-18] MEDS: lamoTRIgine 100 MG TAB PO SCH (21:22)
[2018-02-18] MEDS: SODIUM CHLORIDE 0.9% FLUSH 10 ML FLUSH IV FLUSH SCH (21:22)
[2018-02-18] MEDS: OXcarbazepine SUSP 300 MG/5 ML UDC PO SCH (21:22)
[2018-02-19] VITALS: BP 114/60; PULSE 107; RESP 18; TEMP 98.5; O2SAT 97
[2018-02-19] MEDS: SODIUM CHLOR 0.9% 1000 ML INJ 1,000 ML IV SCH ×3 (02:34→22:06)
[2018-02-19 04:00] VITALS: BP 119/59; PULSE 106; RESP 18; TEMP 98.9; O2SAT 93
[2018-02-19 07:33] VITALS: BP 118/59; PULSE 82; RESP 18; TEMP 98; O2SAT 96
[2018-02-19 08:08] LABS: AUTOMATED NEUTROPHIL # 3.8 TH/MM3 (1.8-7.7); BASOPHIL % 0.4 % (0.0-2.0); EOSINOPHIL % 0.3 % (0.0-4.0); HEMATOCRIT 36.2 % (35.0-46.0); HEMOGLOBIN 12.1 GM/DL (11.6-15.3); LYMPH % 16.6 % (9.0-44.0); LYMPHOCYTE # 0.8 TH/MM3 (1.0-4.8); MEAN CELL VOLUME 89.3 FL (80.0-100.0); MEAN CORPUSCULAR HEMOGLOBIN 29.8 PG (27.0-34.0); MEAN CORPUSCULAR HGB CONC 33.4 % (32.0-36.0); MONO % 7.2 % (0.0-8.0); MONOCYTE # 0.4 TH/MM3 (0-0.9); NEUT % 75.5 % (16.0-70.0); PLATELET COUNT 254 TH/MM3 (150-450); RED BLOOD COUNT 4.05 MIL/MM3 (4.00-5.30); RED CELL DISTRIBUTION WIDTH 12.6 % (11.6-17.2); WHITE BLOOD COUNT 5.1 TH/MM3 (4.0-11.0)
[2018-02-19 08:48] LABS: BICARBONATE 18.2 MEQ/L (21.0-32.0); CALCIUM 8.2 MG/DL (8.5-10.1); CREATININE 0.44 MG/DL (0.50-1.00)
[2018-02-19] MEDS: OXcarbazepine SUSP 300 MG/5 ML UDC PO SCH ×2 (09:00→22:07)
[2018-02-19] MEDS: ZONISAMIDE 100 MG CAP PO SCH (10:58)
[2018-02-19] MEDS: CITALOPRAM HYDROBROMIDE 20 MG TAB PO SCH (10:59)
[2018-02-19] MEDS: lamoTRIgine 100 MG TAB PO SCH ×2 (10:59→22:08)
[2018-02-19] MEDS: ZIPRASIDONE HCL 20 MG CAP PO SCH (11:01)
[2018-02-19] MEDS: DOCUSATE SODIUM 50 MG/SENNA 8.6 MG TAB PO SCH ×2 (11:01→21:00)
[2018-02-19] MEDS: SODIUM CHLORIDE 0.9% FLUSH 10 ML FLUSH IV FLUSH SCH ×2 (11:02→22:13)
[2018-02-19 11:35] VITALS: BP 121/77; PULSE 77; RESP 18; TEMP 98; O2SAT 98
--- NOTE | 2018-02-19 15:00 | MG ---
cc: Sahil Kruger MD, PhD TEST NUMBER: [id number] TECHNIQUE: This is a 17-channel EEG. DESCRIPTION: The background rhythm reveals mild slowing in the theta range. This is later replaced with a symmetrical alpha rhythm. There is fairly prominent muscle artifact throughout the tracing. No lateralizing features are identified. No epileptiform features are identified. Photic results in a fairly well-developed driving response. INTERPRETATION: Overall normal electroencephalogram. Sahil Kruger MD, PhD ADIN/SB , 02:42 PM , 02:59 PM
[2018-02-19 16:06] VITALS: BP 114/57; PULSE 56; RESP 18; TEMP 98.3; O2SAT 97
--- NOTE | 2018-02-19 16:32 | HHI.PR ---
Subjective Remarks Patient has been lethargic today. Discussed with mother. I was able to wake her up. She complains of a headache which is not unusual for. Mother is concerned about taking her home today because she is by herself. The patient's father will be back home tomorrow to help. Objective Vitals Vital Signs Date Time Temp Pulse Resp B/P (MAP) Pulse Ox O2 Delivery O2 Flow Rate FiO2 02/19/18 16:06 98.3 56 18 114/57 (76) 97 02/19/18 11:35 98.0 77 18 121/77 (92) 98 02/19/18 07:33 98.0 82 18 118/59 (78) 96 02/19/18 04:00 98.9 106 18 119/59 (79) 93 02/19/18 00:00 98.5 107 18 114/60 (78) 97 02/18/18 20:00 98.5 108 18 123/66 (85) 94 02/18/18 18:08 02/18/18 17:46 98.7 84 19 128/66 (86) 97 I/O 02/18/18 02/18/18 02/18/18 02/19/18 02/19/18 02/19/18 07:00 15:00 23:00 07:00 15:00 23:00 # Voids 1 2 # Bowel Movements 0 0 Result Diagram: 02/19/18 0752 02/19/18 0752 Imaging Last Impressions Shunt Study (Imaging) 02/18/18 0000 Signed Impressions: Service Date/Time: Sunday, February 18, 2018 19:19 - CONCLUSION: Intact shunt but there is a kink in the catheter within the soft tissues of the right side of the neck. Emmett Cervantes MD Head CT 02/18/18 0000 Signed Impressions: Service Date/Time: Sunday, February 18, 2018 16:02 - CONCLUSION: Ventriculostomy catheter unchanged. Size of ventricles unchanged. No acute intracranial findings identified. Andres Collier MD Chest X-Ray 02/18/18 0000 Signed Impressions: Service Date/Time: Sunday, February 18, 2018 19:18 - CONCLUSION: No evidence of acute cardiopulmonary disease. Emmett Cervantes MD Objective Remarks GENERAL: Patient has cerebral palsy, very small for age. No acute distress. CARDIOVASCULAR: Normal rate and regular rhythm without murmurs, gallops, or rubs. RESPIRATORY: Good respiratory efforts. Breath sounds equal and clear to auscultation bilaterally. GASTROINTESTINAL: Abdomen soft, non-tender, non-distended. Normal active bowel sounds MUSCULOSKELETAL: Small limbs with some contractures. NEURO: Awake and alert. PSYCH: Appropriate mood and affect. A/P Assessment and Plan 22-year-old female with cerebral palsy and seizure disorder admitted with breakthrough seizures. Reportedly had 3 seizures in the past 24 hours prior to admission. One seizure was witnessed in the emergency room as tonic-clonic. Breakthrough seizures: The patient's neurologist in [place] was consulted from the emergency room. He gave recommendations to titrate her antiepileptics, which has been done. -Brain imaging including head CT and shunt studies were unremarkable. - The patient is somewhat lethargic, probably secondary to the new change in the medication and lack of sleep. Does not have adequate caregiver at home, her father is coming back home tomorrow. We will monitor overnight with plan to discharge her in the morning if she remains stable. -EEG overall unremarkable. Discharge Planning Plan for discharge tomorrow. Patient to follow-up with her neurologist in [place]. Kirstin Gustafson MD Feb 19, 2018 16:32
[2018-02-19] MEDS ORDERED: ACETAMINOPHEN 500 MG CPLT PO PRN (20:00)
[2018-02-19 20:50] VITALS: BP 117/58; PULSE 106; RESP 18; TEMP 98; O2SAT 97
[2018-02-19] MEDS: ZIPRASIDONE HCL 60 MG CAP PO SCH (22:12)
[2018-02-20 00:43] VITALS: BP 115/56; PULSE 69; RESP 18; TEMP 98.2; O2SAT 97
[2018-02-20 04:56] VITALS: BP 106/52; PULSE 60; RESP 18; TEMP 97.6; O2SAT 99
[2018-02-20 08:00] VITALS: BP 111/61; PULSE 76; RESP 18; TEMP 97.7; O2SAT 96
[2018-02-20] MEDS: SODIUM CHLOR 0.9% 1000 ML INJ 1,000 ML IV SCH (08:34)
[2018-02-20] MEDS ORDERED: OXCARBAZEPINE PO ×2 (08:54)
--- NOTE | 2018-02-20 08:54 | HHI.DCPOC ---
Discharge Care Plan Diagnosis: (1) Breakthrough seizure (2) Seizure disorder (3) Cerebral palsy Goals to Promote Your Health * To prevent worsening of your condition and complications * To maintain your health at the optimal level Directions to Meet Your Goals Take your medications as prescribed Follow your dietary instruction Follow activity as directed Keep your appointments as scheduled Take your immunizations and boosters as scheduled If your symptoms worsen call your PCP, if no PCP go to Urgent Care Center or Emergency Room Smoking is Dangerous to Your Health. Avoid second hand smoke Call the 24-hour hour crisis hotline for domestic abuse at Kirstin Gustafson MD Feb 20, 2018 08:54
--- NOTE | 2018-02-20 08:55 | HHI.DS ---
Discharge Summary Admission Date Feb 18, 2018 at 16:41 Discharge Date: Feb 20, 2018 Admitting Diagnosis Breakthrough seizures (1) Seizure disorder ICD Code: G40.909 - Epilepsy, unspecified, not intractable, without status epilepticus Status: Acute (2) Breakthrough seizure ICD Code: G40.919 - Epilepsy, unspecified, intractable, without status epilepticus (3) Cerebral palsy ICD Code: G80.9 - Cerebral palsy, unspecified Status: Acute Procedures None Brief History - From Admission HPI from the admitting physician hx from patient, her mom at bedside, ER MD and review of medical records pt herself is able to give hx only limitedly as both her mom and her nursing aid at bedside reported that her complaints sometimes maybe unreliable, due to her baseline status. She is extremely pleasant, but answers sometimes yes to a question, which a few minutes later she would answer no to. mom woke up at 4 00a.m,, mom checked on her, she was fine then hard her said "mom i am shaking " mom saw her left foot shaking saw her eyes blinking nad moving fast stated she could tell on her daughter's voice swiped her vagal nerve stimulator usually this would stop seizures, but this time did not then mom went to living room got zofraan and lorazepam and then called 911 - because it was lasting 5-6 min usually it is focal motor seizures and give her meds by mouth -usually able to swallow even with seizures then when ems came, mom decided not to send her to hospital at 1230pm. mom was in bathroom patient called her out again left foot and her right hand shaking really bad then as well thus called 911 second time and decided to come to ER on ROS, has been feeling warm but not sure if thermometer works here in ER, low grade fever had diarrhea just this morning, once only, smells terrible not on antibiotics was sneezing a lot lately usually,seizures are only every few months seizure meds- zonegren was increased from 200mg po qhs to 300mg po qhs about a month ago today, mom called her neurologist and they increased trileptal from 300mg po bid , to 600mg po am and 900mg po qhs per ER MD, pt had tonic clonic seizure, witnessed, while in ER , after she came back from CT CBC/BMP: 02/19/18 0752 02/19/18 0752 Significant Findings Laboratory Tests Test 02/18/18 13:12 02/18/18 13:23 02/19/18 07:52 Neutrophils (%) (Auto) 78.7 % (16.0-70.0) 75.5 % (16.0-70.0) Lymphocytes # (Auto) 0.7 TH/MM3 (1.0-4.8) 0.8 TH/MM3 (1.0-4.8) Chloride Level 108 MEQ/L (98-107) 110 MEQ/L (98-107) Urine Ketones 80 mg/dL (NEG) Urine Mucus FEW /lpf (OCC) Creatinine 0.44 MG/DL (0.50-1.00) Random Glucose 64 MG/DL (74-106) Calcium Level 8.2 MG/DL (8.5-10.1) Carbon Dioxide Level 18.2 MEQ/L (21.0-32.0) Imaging Last Impressions Shunt Study (Imaging) 02/18/18 0000 Signed Impressions: Service Date/Time: Sunday, February 18, 2018 19:19 - CONCLUSION: Intact shunt but there is a kink in the catheter within the soft tissues of the right side of the neck. Emmett Cervantes MD Head CT 02/18/18 0000 Signed Impressions: Service Date/Time: Sunday, February 18, 2018 16:02 - CONCLUSION: Ventriculostomy catheter unchanged. Size of ventricles unchanged. No acute intracranial findings identified. Andres Collier MD Chest X-Ray 02/18/18 0000 Signed Impressions: Service Date/Time: Sunday, February 18, 2018 19:18 - CONCLUSION: No evidence of acute cardiopulmonary disease. Emmett Cervantes MD PE at Discharge GENERAL: Patient has cerebral palsy, very small for age. No acute distress. CARDIOVASCULAR: Normal rate and regular rhythm without murmurs, gallops, or rubs. RESPIRATORY: Good respiratory efforts. Breath sounds equal and clear to auscultation bilaterally. GASTROINTESTINAL: Abdomen soft, non-tender, non-distended. Normal active bowel sounds MUSCULOSKELETAL: Small limbs with some contractures. NEURO: Awake and alert. PSYCH: Appropriate mood and affect. Pt update on day of discharge "I am ready to get checked out". No new issues. No seizures overnight. Patient states he is feeling well. Hospital Course 22-year-old female with cerebral palsy and seizure disorder admitted with breakthrough seizures. Reportedly had 3 seizures in the past 24 hours prior to admission. One seizure was witnessed in the emergency room as tonic-clonic. Breakthrough seizures: The patient's neurologist in [place] was consulted from the emergency room. He gave recommendations to titrate her antiepileptics, which has been done. -Brain imaging including head CT and shunt studies were unremarkable. EEG overall unremarkable. - The patient was somewhat lethargic, probably secondary to the new change in the medication and lack of sleep. She did much better the next day. She was discharged in good condition on new antiepileptic regimen to follow-up outpatient with her neurologist. Pt Condition on Discharge: Good Discharge Disposition: Discharge Home Discharge Time: <= 30 minutes Discharge Instructions DIET: Follow Instructions for: As Tolerated, No Restrictions Activities you can perform: Regular-No Restrictions Follow up Referrals: Appointment for Follow Up @ Neurology Neurology New Medications: Ziprasidone (Geodon) 20 Mg Cap 20 MG PO DAILY, #30 CAP Ziprasidone (Geodon) 60 Mg Cap 60 MG PO HS, #30 CAP [OXcarbazepine LIQ] () 300 MG/5 ML SUSP 900 MG PO HS for 30 Days, ML [OXcarbazepine LIQ] () 300 MG/5 ML SUSP 600 MG PO DAILY for 30 Days, #300 ML Continued Medications: Citalopram (Citalopram) 20 Mg Tab 30 MG PO DAILY for Control Depression, #30 TAB 0 Refills Lamotrigine (Lamictal) 100 Mg Tab 150 MG PO BID for Control Seizures, #60 TAB 0 Refills Lorazepam (Ativan) 0.5 Mg Tab 0.5 MG PO Q6H PRN for ANXIETY AND/OR AGITATION, TAB 0 Refills Ondansetron Odt (Zofran Odt) 4 Mg Tab 4 MG SL Q6HR PRN for Nausea/Vomiting, #30 TAB 0 Refills Sennosides/Docusate Sodium (Senna-Docusate Sodium Tablet) 8.6 Mg-50 Mg Tablet 1 TAB PO BID Zonisamide (Zonegran) 100 Mg Cap 300 MG PO DAILY for Control Seizures, #30 CAP 0 Refills Discontinued Medications: Oxcarbazepine (Oxcarbazepine) 300 Mg Tab 300 MG PO BID for Seizure Control, #60 TAB 0 Refills Kirstin Gustafson MD Feb 20, 2018 08:55
[2018-02-20] MEDS: OXcarbazepine SUSP 300 MG/5 ML UDC PO SCH (09:00)
[2018-02-20] MEDS: ZIPRASIDONE HCL 20 MG CAP PO SCH (09:18)
[2018-02-20] MEDS: lamoTRIgine 100 MG TAB PO SCH (09:18)
[2018-02-20] MEDS: DOCUSATE SODIUM 50 MG/SENNA 8.6 MG TAB PO SCH (09:18)
[2018-02-20] MEDS: CITALOPRAM HYDROBROMIDE 20 MG TAB PO SCH (09:20)
[2018-02-20] MEDS: ZONISAMIDE 100 MG CAP PO SCH (09:20)
[2018-02-20] MEDS: SODIUM CHLORIDE 0.9% FLUSH 10 ML FLUSH IV FLUSH SCH (09:24)
[2018-02-20] MEDS ORDERED: GEOD60CA PO (11:00)
[2018-02-20] MEDS ORDERED: ZIPR20 PO (11:00)
== END 2018-02-20 11:41 | disposition home or self-care (01) | DRG 101 ==
LOC: NEPC 12:37 → NEDA 16:33 → OBSVTOIN 16:41 → N05A 17:27
PROVIDERS: ADMIT Family Medicine; ATTEND Family Medicine
DX: G40.89 Other seizures (principal); G40.919 Epilepsy, unspecified, intractable, without status epilepticus; G80.9 Cerebral palsy, unspecified; E86.0 Dehydration; R62.50 Unspecified lack of expected normal physiological development in childhood; H54.62 Unqualified visual loss, left eye, normal vision right eye; J30.2 Other seasonal allergic rhinitis; Z98.2 Presence of cerebrospinal fluid drainage device
CPT/HCPCS: 70250; 70450; 71045; 72040; 74018; 76937; 80048; 81001; 83735; 85025; 95819; 96361; 96374; J2060; J7030

== ENCOUNTER 2018-03-15 18:41 | Emergency (ER) | payer OTHER ==
[~2018-03-15] VITALS: Ht 124.5 cm; Wt 43.0 kg
[~2018-03-15 18:41] MED LIST changes: -OXCA300T PO; +OXCARBAZEPINE PO; +ZIPR20 PO
--- NOTE | 2018-03-15 18:55 | PD ---
HPI Chief Complaint: Seizure Time Seen by Provider: 18:54 Travel History International Travel<30 days: No Contact w/Intl Traveler<30days: No History of Present Illness HPI Patient presents accompanied by her mother and construction pit worker. Patient has CP and history of seizures. She is on seizure medication. Her mother is here with her who is giving additional history. As per the mother patient has seizures once every 2-3 months and she has been taking her medication like she supposed to. Her neurologist is in [place]. Today they recorded with a described as seizures that occurred several times throughout the day. Video recording shows this young lady with right eye twitching. No other symptoms. Patient did call her neurologist in [place] who adjusted her lamotrigine dosing and and instructed her mother to give her an Ativan. Currently patient is seizure-free and is awake and talking. As per the mother she is at her baseline. Mother patient and construction pit worker all deny any new nausea vomiting diarrhea or fever. Denies any chest pain shortness of breath urinary or bowel symptoms. Denies any cough. PFSH Past Medical History Asthma: No Heart Rhythm Problems: No Cardiovascular Problems: No Cerebral Palsy: Yes (BORN AT 24 WEEKS) COPD: No Developmental Delay: Yes Diminished Hearing: No Gastrointestinal Disorders: Yes GERD: No Gestational Age in Weeks: 24 Genitourinary: No Headaches: Yes Hiatal Hernia: No Hypertension: No Musculoskeletal: No Neurologic: Yes (HX- CP) Reproductive: No Respiratory: No Immunizations Current: Yes Seizures: Yes Sickle Cell Disease: No Sleep Apnea: No PNEUMOCCOCAL Vaccine (Year): 2 Past Surgical History Abdominal Surgery: Yes (BILAT INGUINAL HERNIA REPAIR.) Ear Surgery: Yes (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.) Eye Surgery: Yes (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.) Neurologic Surgery: Yes (SHUNT, MULT SHUNT REVISIONS/Vagal nerve stimulator NS) Oral Surgery: Yes (TONGUE CLIPPING) Other Surgery: Yes (HIP, ABDUCTORS RELEASED;VAGAL NERVE STIMULATOR) Social History Alcohol Use: No Tobacco Use: No Substance Use: No Allergies-Medications (Allergen,Severity, Reaction): Coded Allergies: cefprozil (Verified Allergy, Severe, Swelling, 03/15/18) codeine (Verified Allergy, Severe, Nausea/Vomiting, 03/15/18) vancomycin (Verified Allergy, Severe, Rash, 03/15/18) Reported Meds & Prescriptions Reported Meds & Active Scripts Active Geodon (Ziprasidone) 60 Mg Cap 60 Mg PO HS Geodon (Ziprasidone) 20 Mg Cap 20 Mg PO DAILY [OXcarbazepine LIQ] 300 MG/5 ML Susp 600 Mg PO DAILY 30 Days [OXcarbazepine LIQ] 300 MG/5 ML Susp 900 Mg PO HS 30 Days Zonegran (Zonisamide) 100 Mg Cap 300 Mg PO DAILY Reported Citalopram (Citalopram Hydrobromide) 20 Mg Tab 30 Mg PO DAILY Senna-Docusate Sodium Tablet (Sennosides/Docusate Sodium) 8.6 Mg-50 Mg Tablet 1 Tab PO BID Zofran Odt (Ondansetron Odt) 4 Mg Tab 4 Mg SL Q6HR PRN Ativan (Lorazepam) 0.5 Mg Tab 0.5 Mg PO Q6H PRN Lamictal (Lamotrigine) 100 Mg Tab 150 Mg PO BID Review of Systems General / Constitutional: No: Fever Eyes: No: Visual changes HENT: No: Headaches Cardiovascular: No: Chest Pain or Discomfort Respiratory: No: Shortness of Breath Gastrointestinal: No: Abdominal Pain Genitourinary: No: Dysuria Musculoskeletal: No: Pain Skin: No Rash Neurologic: Positive: Other (Right eye twitching), No: Weakness Psychiatric: No: Depression Endocrine: No: Polydipsia Hematologic/Lymphatic: No: Easy Bruising Physical Exam Narrative GENERAL: Well-nourished at baseline, interactive SKIN: Focused skin assessment warm/dry. HEAD: Normocephalic. EYES: No scleral icterus. No injection or drainage. NECK: Supple, trachea midline. No JVD or lymphadenopathy. CARDIOVASCULAR: Regular rate and rhythm without murmurs, gallops, or rubs. RESPIRATORY: Breath sounds equal bilaterally. No accessory muscle use. GASTROINTESTINAL: Abdomen soft, non-tender, nondistended. MUSCULOSKELETAL: No cyanosis, or edema. BACK: Nontender without obvious deformity. No CVA tenderness. Data Data Last Documented VS Vital Signs Date Time Temp Pulse Resp B/P (MAP) Pulse Ox O2 Delivery O2 Flow Rate FiO2 03/15/18 19:29 97 Room Air 03/15/18 19:28 112 16 03/15/18 19:25 97.8 Orders Orders Complete Blood Count With Diff (03/15/18 18:55) Basic Metabolic Panel (Bmp) (03/15/18 18:55) Carbamazepine (Tegretol) (03/15/18 18:55) Blood Glucose (03/15/18 18:55) Ecg Monitoring (03/15/18 18:55) Iv Access Insert/Monitor (03/15/18 18:55) Oximetry (03/15/18 18:55) Sodium Chloride 0.9% Flush (Ns Flush) (03/15/18 19:00) Lamictal (Lamotrigine) (03/15/18 18:55) Urinalysis - C+S If Indicated (03/15/18 19:24) Cath For Specimen (03/15/18:24) Urine Culture (03/15/18 19:10) Labs Laboratory Tests Test 03/15/18 19:10 Urine Color YELLOW Urine Turbidity CLEAR Urine pH 6.5 Urine Specific [place] 1.020 Urine Protein NEG mg/dL Urine Glucose (UA) NEG mg/dL Urine Ketones TRACE mg/dL Urine Occult Blood NEG Urine Nitrite NEG Urine Bilirubin NEG Urine Urobilinogen 1.0 MG/DL Urine Leukocyte Esterase NEG Urine RBC 0-3 /hpf Urine WBC 0-2 /hpf Urine Squamous Epithelial Cells 6-8 /hpf Urine Bacteria MOD /hpf Microscopic Urinalysis Comment CATH-CULTURE IND MDM Medical Decision Making Medical Screen Exam Complete: Yes Emergency Medical Condition: Yes Differential Diagnosis Seizure activity, ocular fatigue, progressive visual changes Narrative Course Assessment and plan discussed with patient mother and construction pit worker at bedside. Urinalysis with culture pending. No seizure activity observed. Diagnosis Primary Impression: Dysuria Patient Instructions: General Instructions Additional Instructions: Encourage fluids and possible cranberry supplement. Antibiotic as prescribed. Medication changes per neurology. Encouraged to follow-up with her neurologist. Return to emergency room with any onset of new symptoms. Med/Other Pt SpecificInfo: Prescription(s) given Scripts Sulfamethoxazole-Trimethoprim (Bactrim) 400-80 Mg Tab 1 TAB PO BID for Infection for 5 Days, #10 TAB 0 Refills Prov: Helio Garza MD 03/15/18 Disposition: 01 DISCHARGE HOME Condition: Good Helio Garza MD March 15, 2018 18:55
[2018-03-15] MEDS ORDERED: SODIUM CHLORIDE 0.9% FLUSH 10 ML FLUSH IVF PRN (19:00)
[2018-03-15 19:25] VITALS: BP 164/93; PULSE 92; RESP 16; TEMP 97.8; O2SAT 98
[2018-03-15 19:28] VITALS: BP 160/75; PULSE 112; RESP 16; O2SAT 95
[2018-03-15 19:29] VITALS: O2SAT 97
[2018-03-15 19:31] LABS: BILIRUBIN, URINE NEG (NEG); BLOOD, URINE NEG (NEG); GLUCOSE,URINE NEG (NEG); KETONE, URINE TRACE mg/dL (NEG); NITRITE,URINE NEG (NEG); PH, URINE 6.5 (5.0-8.5); URINE COLOR YELLOW (YELLW/STRAW); URINE LEUKOCYTE ESTERASE NEG (NEG)
[2018-03-15 19:42] LABS: RBC, URINE 0-3 /hpf (0-3); WBC, URINE 0-2 /hpf (0-5)
[2018-03-15 19:43] LABS: BACTERIA, URINE MOD /hpf
[2018-03-15] MEDS ORDERED: BACT400T PO (20:23)
[2018-03-15 20:52] VITALS: BP 158/74; TEMP 98.4
== END 2018-03-15 21:02 | disposition home or self-care (01) ==
LOC: PHED 18:41
DX: R30.0 Dysuria (principal); R56.9 Unspecified convulsions; G80.9 Cerebral palsy, unspecified; Z88.5 Allergy status to narcotic agent; Z88.1 Allergy status to other antibiotic agents; Z79.899 Other long term (current) drug therapy
CPT/HCPCS: 81001; 87086; 99283; P9612

== ENCOUNTER 2018-03-30 11:49 | Emergency (ER) | payer OTHER ==
[~2018-03-30 11:49] MED LIST changes: +BACT400T PO
[2018-03-30] MEDS ORDERED: SODIUM CHLOR 0.9% 1000 ML INJ 1,000 ML IV SCH (11:51)
--- NOTE | 2018-03-30 11:56 | PD ---
HPI Chief Complaint: Vomiting Time Seen by Provider: 11:51 Travel History International Travel<30 days: No Contact w/Intl Traveler<30days: No Traveled to known affect area: No History of Present Illness HPI Patient was out with family when she started to have episodes of nausea and vomiting. The family states that the only time she has nausea vomiting is when she has "seizures" however one was not witnessed. Per parent no evidence of any fever, rash, headache, neck pain, chest pain, back pain or abdominal pain. No alleviating or aggravating factors. Patient was brought in by EMS who gave Zofran ODT, however the patient had a episode of emesis after immediately after. She was then given Zofran 4 mg IV, however EMS was not so sure that the IV that they can was proper. Patient had another episode of vomiting prior to arrival. States allergy to Cefzil, codeine, Vancocin Past medical history significant for left eye blindness, due to retinal detachment, corrective lenses, tongue clipping, cerebral palsy with partial contractures, seizures, APPLICATIONS CONSULTANT shunt with shunt revisions, vagal nerve stimulator, history of bronchopulmonary dysplasia, bilateral inguinal hernia repair, [facility] Past Medical History Asthma: No Heart Rhythm Problems: No Cardiovascular Problems: No Cerebral Palsy: Yes (BORN AT 24 WEEKS) COPD: No Developmental Delay: Yes Diminished Hearing: No Gastrointestinal Disorders: Yes GERD: No Gestational Age in Weeks: 24 Genitourinary: No Headaches: Yes Hiatal Hernia: No Hypertension: No Musculoskeletal: No Neurologic: Yes (HX- CP) Reproductive: No Respiratory: No Immunizations Current: Yes Seizures: Yes Sickle Cell Disease: No Sleep Apnea: No PNEUMOCCOCAL Vaccine (Year): 2 Past Surgical History Abdominal Surgery: Yes (BILAT INGUINAL HERNIA REPAIR.) Ear Surgery: Yes (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.) Eye Surgery: Yes (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.) Neurologic Surgery: Yes (SHUNT, MULT SHUNT REVISIONS/Vagal nerve stimulator NS) Oral Surgery: Yes (TONGUE CLIPPING) Other Surgery: Yes (HIP, ABDUCTORS RELEASED;VAGAL NERVE STIMULATOR replaced 1 wk ago) Social History Alcohol Use: No Tobacco Use: No Substance Use: No Allergies-Medications (Allergen,Severity, Reaction): Coded Allergies: cefprozil (Verified Allergy, Severe, Swelling, 03/30/18) codeine (Verified Allergy, Severe, Nausea/Vomiting, 03/30/18) vancomycin (Verified Allergy, Severe, Rash, 03/30/18) Reported Meds & Prescriptions Reported Meds & Active Scripts Active Geodon (Ziprasidone) 60 Mg Cap 60 Mg PO HS Geodon (Ziprasidone) 20 Mg Cap 20 Mg PO DAILY Zonegran (Zonisamide) 100 Mg Cap 300 Mg PO DAILY Reported Oxcarbazepine 600 Mg Tab 900 Mg PO BID Citalopram (Citalopram Hydrobromide) 20 Mg Tab 30 Mg PO DAILY Zofran Odt (Ondansetron Odt) 4 Mg Tab 4 Mg SL Q6HR PRN Ativan (Lorazepam) 0.5 Mg Tab 0.5 Mg PO Q6H PRN Lamictal (Lamotrigine) 100 Mg Tab 150 Mg PO BID Review of Systems General / Constitutional: No: Fever Eyes: No: Visual changes HENT: No: Headaches Cardiovascular: No: Chest Pain or Discomfort Respiratory: No: Shortness of Breath Gastrointestinal: Positive: Nausea, Vomiting Genitourinary: No: Dysuria Musculoskeletal: No: Pain Skin: No Rash Neurologic: No: Weakness Psychiatric: No: Depression Endocrine: No: Polydipsia Hematologic/Lymphatic: No: Easy Bruising Physical Exam Narrative GENERAL: Young female with some extremity contractures, who was nauseous and gagging and had 2 episodes of emesis with time in between. We assisted the patient with suction through a [place] and patient utilized a emesis bag at bedside. When the patient was no longer having emetic episode she was able to answer all questions well on her own. SKIN: Warm and dry. HEAD: Atraumatic. Normocephalic. EYES: Pupils equal and round. No scleral icterus. No injection or drainage. ENT: No nasal bleeding or discharge. Mucous membranes pink and moist. NECK: Trachea midline. No JVD. CARDIOVASCULAR: Regular rate and rhythm. RESPIRATORY: No accessory muscle use. Crackles heard on the left lower base , no tachypnea . GASTROINTESTINAL: Abdomen soft, non-tender, nondistended. MUSCULOSKELETAL: Extremities without clubbing, cyanosis, or edema. No obvious deformities. NEUROLOGICAL: Awake and alert. No obvious cranial nerve deficits. Motor grossly within normal limits. Five out of 5 muscle strength in the arms and legs. Normal speech. PSYCHIATRIC: Appropriate mood and affect; insight and judgment normal. Data Data Last Documented VS Vital Signs Date Time Temp Pulse Resp B/P (MAP) Pulse Ox O2 Delivery O2 Flow Rate FiO2 03/30/18 13:23 71 16 140/74 (96) 97 Room Air 03/30/18 11:58 98.4 Orders Orders Beta Hcg (Quant/Titer) (03/30/18 11:51) Complete Blood Count With Diff (03/30/18 11:51) Comprehensive Metabolic Panel (03/30/18 11:51) Lipase (03/30/18 11:51) Urinalysis - C+S If Indicated (03/30/18 11:51) Ct Abd/Pel W/O Iv Contrast (03/30/18 11:51) Iv Access Insert/Monitor (03/30/18 11:51) Ecg Monitoring (03/30/18 11:51) Oximetry (03/30/18 11:51) NPO (03/30/18 11:51) Sodium Chlor 0.9% 1000 Ml Inj (Ns 1000 M (03/30/18 11:51) Sodium Chloride 0.9% Flush (Ns Flush) (03/30/18 12:00) Promethazine Inj (Phenergan Inj) (03/30/18 12:00) Metoclopramide Inj (Reglan Inj) (03/30/18 12:15) Clindamycin 600 Mg/Ns Premix (Cleocin 60 (03/30/18 14:15) Levofloxacin 500 Mg Premix Inj (Levaquin (03/30/18 14:15) Labs Laboratory Tests Test 03/30/18 12:05 03/30/18 13:00 White Blood Count 7.5 TH/MM3 Red Blood Count 4.58 MIL/MM3 Hemoglobin 13.3 GM/DL Hematocrit 39.7 % Mean Corpuscular Volume 86.8 FL Mean Corpuscular Hemoglobin 29.0 PG Mean Corpuscular Hemoglobin Concent 33.4 % Red Cell Distribution Width 13.1 % Platelet Count 319 TH/MM3 Mean Platelet Volume 7.2 FL Neutrophils (%) (Auto) 82.1 % Lymphocytes (%) (Auto) 11.0 % Monocytes (%) (Auto) 4.3 % Eosinophils (%) (Auto) 1.0 % Basophils (%) (Auto) 1.6 % Neutrophils # (Auto) 6.2 TH/MM3 Lymphocytes # (Auto) 0.8 TH/MM3 Monocytes # (Auto) 0.3 TH/MM3 Eosinophils # (Auto) 0.1 TH/MM3 Basophils # (Auto) 0.1 TH/MM3 CBC Comment DIFF FINAL Differential Comment Blood Urea Nitrogen 11 MG/DL Creatinine 0.65 MG/DL Random Glucose 121 MG/DL Total Protein 7.8 GM/DL Albumin 4.1 GM/DL Calcium Level 8.5 MG/DL Alkaline Phosphatase 93 U/L Aspartate Amino Transf (AST/SGOT) 16 U/L Alanine Aminotransferase (ALT/SGPT) 25 U/L Total Bilirubin 0.3 MG/DL Sodium Level 140 MEQ/L Potassium Level 3.5 MEQ/L Chloride Level 110 MEQ/L Carbon Dioxide Level 21.8 MEQ/L Anion Gap 8 MEQ/L Estimat Glomerular Filtration Rate 115 ML/MIN Lipase 107 U/L Human Chorionic Gonadotropin, Quant LESS THAN 1 MIU/ML Urine Collection Type CATH Urine Color YELLOW Urine Turbidity CLEAR Urine pH 6.5 Urine Specific [place] 1.020 Urine Protein 30 mg/dL Urine Glucose (UA) NEG mg/dL Urine Ketones TRACE mg/dL Urine Occult Blood NEG Urine Nitrite NEG Urine Bilirubin NEG Urine Urobilinogen 1.0 MG/DL Urine Leukocyte Esterase NEG Urine Squamous Epithelial Cells 6-8 /hpf Urine Transitional Epithelial Cells 0-5 /hpf Urine Amorphous Sediment MOD Microscopic Urinalysis Comment CATH-CULT NOT IND Urine Collection Time 1300 MDM Medical Decision Making Medical Screen Exam Complete: Yes Emergency Medical Condition: Yes Medical Record Reviewed: Yes Differential Diagnosis Spontaneous nausea and vomiting versus gastroenteritis versus pancreatitis versus ileus versus small bowel obstruction versus hiatal hernia Narrative Course CBC shows no leukocytosis, no left shift, no anemia, and normal platelet count UA is negative for any evidence of UTI Electrolytes are all within normal limits, normal kidney liver and pancreatic functions. HCG quantitative less than [address] abdomen and pelvis performed by and read by radiologist as no obstruction or acute inflammatory changes. Cholelithiasis without any evidence of cholecystitis. Large amount of stool in the rectum, APPLICATIONS CONSULTANT shunt catheter present coiled in the pelvic cavity no evidence of any associated acute complications, there is a left-sided infiltrate on the visualized lung bases. Of note on February 18, [address] patient [address] a CT head which was read as no acute intracranial findings identified, size of ventricles are unchanged and the ventriculostomy catheter is unchanged. Patient also had a short study which was negative for any acute abnormalities Discussed case at length with Dr. Cheek who recommended outpatient trial and follow-up with Dr. Casiano, she did recommend that if patient does not tolerate p.o. antibiotics and returns with vomiting that she will be admitted at that time Diagnosis Primary Impression: Nausea and vomiting Additional Impression: Left lower lobe pneumonia possible aspiration pneumonia Admitting Information Admitting Physician Requests: Observation Patient Instructions: Acute Nausea and Vomiting (ED), Aspiration Pneumonia (DC) , General Instructions Scripts Metronidazole (Flagyl) 500 Mg Tab 500 MG PO TID for Infection for 7 Days, #21 TAB 0 Refills Prov: Patrick Troncoso MD 03/30/18 Levofloxacin (Levofloxacin) 500 Mg Tablet 500 MG PO DAILY for Infection, #7 TAB 0 Refills Prov: Patrick Troncoso MD 03/30/18 Promethazine Supp (Phenergan Supp) 25 Mg Supp 25 MG RECTAL Q6H Y for NAUSEA OR VOMITING, #10 SUPP 0 Refills Prov: Patrick Troncoso MD 03/30/18 Disposition: 01 DISCHARGE HOME Condition: Stable Patrick Troncoso MD Mar 30, 2018 11:56
[2018-03-30 11:58] VITALS: BP 104/64; PULSE 102; RESP 18; TEMP 98.4; O2SAT 99
[2018-03-30] MEDS ORDERED: PROMETHAZINE INJ 25 MG/ML VIAL IM ONE (12:00)
[2018-03-30] MEDS ORDERED: SODIUM CHLORIDE 0.9% FLUSH 10 ML FLUSH IV FLUSH PRN (12:00)
[2018-03-30 12:10] LABS: AUTOMATED NEUTROPHIL # 6.2 TH/MM3 (1.8-7.7); BASOPHIL # 0.1 TH/MM3 (0-0.2); BASOPHIL % 1.6 % (0.0-2.0); EOSINOPHIL # 0.1 TH/MM3 (0-0.4); HEMATOCRIT 39.7 % (35.0-46.0); HEMOGLOBIN 13.3 GM/DL (11.6-15.3); LYMPHOCYTE # 0.8 TH/MM3 (1.0-4.8); MEAN CELL VOLUME 86.8 FL (80.0-100.0); MEAN CORPUSCULAR HGB CONC 33.4 % (32.0-36.0); MEAN PLATELET VOLUME 7.2 FL (7.0-11.0); MONO % 4.3 % (0.0-8.0); MONOCYTE # 0.3 TH/MM3 (0-0.9); NEUT % 82.1 % (16.0-70.0); PLATELET COUNT 319 TH/MM3 (150-450); RED BLOOD COUNT 4.58 MIL/MM3 (4.00-5.30); RED CELL DISTRIBUTION WIDTH 13.1 % (11.6-17.2); WHITE BLOOD COUNT 7.5 TH/MM3 (4.0-11.0)
[2018-03-30 12:13] VITALS: BP 105/62; PULSE 92; RESP 18; O2SAT 98
[2018-03-30] MEDS ORDERED: METOCLOPRAMIDE HCL 10 MG/2 ML VIAL IV PUSH ONE (12:15)
[2018-03-30] MEDS ORDERED: OXCA600T PO (12:17)
[2018-03-30 12:20] LABS: CHLORIDE 110 MEQ/L (98-107); SODIUM (NA) 140 MEQ/L (136-145)
[2018-03-30 12:23] LABS: CALCIUM 8.5 MG/DL (8.5-10.1)
[2018-03-30 12:24] LABS: ALBUMIN 4.1 GM/DL (3.4-5.0); BICARBONATE 21.8 MEQ/L (21.0-32.0); BLOOD UREA NITROGEN 11 MG/DL (7-18); GLUCOSE,RANDOM 121 MG/DL (74-106)
[2018-03-30 12:27] LABS: ALT (GPT) 25 U/L (10-53); AST (GOT) 16 U/L (15-37); CREATININE 0.65 MG/DL (0.50-1.00); GLOMERULAR FILTRATION RATE 115 ML/MIN (>89)
[2018-03-30 12:28] LABS: TOTAL BILIRUBIN ADULT 0.3 MG/DL (0.2-1.0); TOTAL PROTEIN 7.8 GM/DL (6.4-8.2)
[2018-03-30 12:29] LABS: ALKALINE PHOSPHATASE 93 U/L (45-117)
[2018-03-30 13:17] LABS: BILIRUBIN, URINE NEG (NEG); BLOOD, URINE NEG (NEG); GLUCOSE,URINE NEG (NEG); KETONE, URINE TRACE mg/dL (NEG); NITRITE,URINE NEG (NEG); PH, URINE 6.5 (5.0-8.5); URINE COLOR YELLOW (YELLW/STRAW); URINE LEUKOCYTE ESTERASE NEG (NEG)
[2018-03-30 13:23] VITALS: BP 140/74; PULSE 71; RESP 16; O2SAT 97
[2018-03-30 13:28] LABS: AMORPHOUS SEDIMENT, URINE MOD; TRANSITIONAL EPI CELLS, URINE 0-5 /hpf
--- NOTE | 2018-03-30 13:28 | RADRPT ---
EXAM DATE: 03/30/2018 1:18 PM EDT AGE/SEX: 22 years / Female INDICATIONS: Nausea and vomiting. CLINICAL DATA: This is the patient's initial encounter. Patient reports that signs and symptoms have been present for 1 day and indicates a pain score of 0/10. MEDICAL/SURGICAL HISTORY: . Seizure. Cerebral palsy. Bronchopulmonary dysplasia. Inguinal lynda ia repair. Orthopedic surgery. RADIATION DOSE: 6.97 CTDI (mGy) COMPARISON: No prior [place] exams available for comparison. TECHNIQUE: Multiple contiguous axial images were obtained through the abdomen. Images were obtained using multiple row detector helical technique. Using dose reduction techniques, radiation dose was ke pt as low as reasonably achievable to obtain optimal diagnostic quality images. FINDINGS: Noncontrast appearance of the liver, spleen, pancreas, adrenal glands and kidneys within normal limit s. A few tiny stones are seen within the gallbladder. No duct stone or ductal dilatation. No perceptible inflammatory changes. Very large amount of stool seen in the rectum. Bowel gas pattern is nonobstructive. Appendix not nuris rly seen but no focal right lower quadrant inflammatory changes are demonstrated. Patient has a ventriculoperitoneal shunt catheter coiled in the pelvic cavity. No free fluid. Patchy airspace opacities are seen of the visualized lung bases, especially on the left. No acute bony abnormality demonstrated. There is mild to moderate scoliosis. Bilateral acetabular dys plasia noted. CONCLUSION: 1. No obstruction or acute inflammatory changes. 2. Large amount of stool in the rectum. 3. Cholelithiasis without evidence of cholecystitis or biliary obstruction. 4. Ventriculoperitoneal shunt catheter present, coiled in the pelvic cavity. No evidence of an assoc iated acute complication. 5. Left side predominant infiltrate of the visualized lung bases. Electronically signed by: Emmett Cervantes MD 03/30/2018 1:26 PM EDT
[2018-03-30] MEDS ORDERED: CLINDAMYCIN 600 MG/NS PREMIX 50 ML IV ONE (14:15)
[2018-03-30] MEDS ORDERED: LEVOFLOXACIN 500 MG PREMIX INJ 100 ML IV ONE (14:15)
[2018-03-30] MEDS ORDERED: PROM1SUP7 RECTAL (14:34)
[2018-03-30] MEDS ORDERED: LEVO500T8 PO (14:34)
[2018-03-30] MEDS ORDERED: METR-1 PO (14:34)
[2018-03-30 16:18] VITALS: BP 103/56
== END 2018-03-30 16:20 | disposition home or self-care (01) ==
LOC: PHED 11:49
DX: R11.2 Nausea with vomiting, unspecified (principal); J18.9 Pneumonia, unspecified organism; K80.20 Calculus of gallbladder without cholecystitis without obstruction; G80.9 Cerebral palsy, unspecified; Z98.2 Presence of cerebrospinal fluid drainage device; Z88.1 Allergy status to other antibiotic agents; Z88.5 Allergy status to narcotic agent; Z79.899 Other long term (current) drug therapy
CPT/HCPCS: 74176; 80053; 81001; 83690; 84702; 85025; 96361; 96365; 96368; 96372; 96375; 99284; J1956; J2550; J2765; J7030

== ENCOUNTER 2018-04-01 12:12 | Emergency (ER) | payer OTHER ==
[~2018-04-01 12:12] MED LIST changes: -BACT400T PO; +LEVO500T8 PO; +METR-1 PO; +OXCA600T PO; -OXCARBAZEPINE PO; +PROM1SUP7 RECTAL; -SENN8.6T88 PO
[2018-04-01 12:22] VITALS: BP 107/64; PULSE 90; RESP 20; TEMP 98.9; O2SAT 97
[2018-04-01] MEDS ORDERED: ONDANSETRON ODT 4 MG TAB PO ONE (12:30)
[2018-04-01] MEDS ORDERED: SODIUM CHLOR 0.9% 1000 ML INJ 1,000 ML IV SCH (12:30)
--- NOTE | 2018-04-01 12:41 | PD ---
HPI Chief Complaint: GI Complaint Time Seen by Provider: 12:24 Travel History International Travel<30 days: No Contact w/Intl Traveler<30days: No Traveled to known affect area: No History of Present Illness HPI 22-year-old female despite by EMS for vomiting. Mom states that patient started having vomiting this morning. Patient denies any headache. Patient denies any chest pain or shortness of breath. Patient denies abdominal pain. Patient denies any recent head injury. Patient has history of CP and seizure. 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 Patient also has history of retinopathy of prematurity, left eye blindness. Patient status post vagal nerve stimulator insertion recently. Patient also has history of bronchopulmonary dysplasia and bilateral inguinal hernia repair. Patient was seen in emergency room 2 days ago for nausea vomiting. CT scan abdomen pelvis at that visit showed cholelithiasis without evidence of cholecystitis, left lower lobe pneumonia. Patient was discharged with advice to follow up with local physician. Patient was given prescription for Flagyl and Levaquin. Mom states that patient has been taking her medications as directed. PFSH Past Medical History Asthma: No Heart Rhythm Problems: No Cardiovascular Problems: No Cerebral Palsy: Yes (BORN AT 24 WEEKS) COPD: No Developmental Delay: Yes Diminished Hearing: No Gastrointestinal Disorders: Yes GERD: No Gestational Age in Weeks: 24 Genitourinary: No Headaches: Yes Hiatal Hernia: No Hypertension: No Musculoskeletal: No Neurologic: Yes (HX- CP, HYDROCHELPHALUS) Reproductive: No Respiratory: No Immunizations Current: Yes Seizures: Yes Sickle Cell Disease: No Sleep Apnea: No PNEUMOCCOCAL Vaccine (Year): 2 ?: Not Past Surgical History Abdominal Surgery: Yes (BILAT INGUINAL HERNIA REPAIR.) Ear Surgery: Yes (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.) Eye Surgery: Yes (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.) Neurologic Surgery: Yes (SHUNT, MULT SHUNT REVISIONS/Vagal nerve stimulator NS) Oral Surgery: Yes (TONGUE CLIPPING) Other Surgery: Yes (HIP, ABDUCTORS RELEASED;VAGAL NERVE STIMULATOR replaced 1 wk ago) Social History Alcohol Use: No Tobacco Use: No Substance Use: No Allergies-Medications (Allergen,Severity, Reaction): Coded Allergies: cefprozil (Verified Allergy, Severe, Swelling, 03/30/18) codeine (Verified Allergy, Severe, Nausea/Vomiting, 03/30/18) vancomycin (Verified Allergy, Severe, Rash, 03/30/18) Reported Meds & Prescriptions Reported Meds & Active Scripts Active Flagyl (Metronidazole) 500 Mg Tab 500 Mg PO TID 7 Days Levofloxacin 500 Mg Tablet 500 Mg PO DAILY Phenergan Supp (Promethazine HCl) 25 Mg Supp 25 Mg RECTAL Q6H PRN Geodon (Ziprasidone) 60 Mg Cap 60 Mg PO HS Geodon (Ziprasidone) 20 Mg Cap 20 Mg PO DAILY Zonegran (Zonisamide) 100 Mg Cap 300 Mg PO DAILY Reported Oxcarbazepine 600 Mg Tab 900 Mg PO BID Citalopram (Citalopram Hydrobromide) 20 Mg Tab 30 Mg PO DAILY Zofran Odt (Ondansetron Odt) 4 Mg Tab 4 Mg SL Q6HR PRN Ativan (Lorazepam) 0.5 Mg Tab 0.5 Mg PO Q6H PRN Lamictal (Lamotrigine) 100 Mg Tab 150 Mg PO BID Review of Systems General / Constitutional: No: Fever Eyes: No: Visual changes HENT: No: Headaches Cardiovascular: No: Chest Pain or Discomfort Respiratory: No: Shortness of Breath Gastrointestinal: Positive: Nausea, Vomiting, No: Abdominal Pain Genitourinary: No: Dysuria Musculoskeletal: No: Pain Skin: No Rash Neurologic: No: Weakness Psychiatric: No: Depression Endocrine: No: Polydipsia Hematologic/Lymphatic: No: Easy Bruising Physical Exam Narrative GENERAL: Well-nourished, well-developed patient. SKIN: Focused skin assessment warm/dry. HEAD: Normocephalic. EYES: No scleral icterus. No injection or drainage. Left eye blindness. NECK: Supple, trachea midline. No JVD or lymphadenopathy. CARDIOVASCULAR: Regular rate and rhythm without murmurs, gallops, or rubs. RESPIRATORY: Breath sounds equal bilaterally. No accessory muscle use. GASTROINTESTINAL: Abdomen soft, non-tender, nondistended. MUSCULOSKELETAL: No cyanosis, or edema. BACK: Nontender without obvious deformity. No CVA tenderness. Neurologic exam: Patient is awake and alert however answer questions by yes or no. Patient with contracture of the extremity. Data Data Last Documented VS Vital Signs Date Time Temp Pulse Resp B/P (MAP) Pulse Ox O2 Delivery O2 Flow Rate FiO2 04/01/18 13:32 100 20 151/75 (100) 96 Room Air 04/01/18 12:22 98.9 Orders Orders Complete Blood Count With Diff (04/01/18 12:24) Comprehensive Metabolic Panel (04/01/18 12:24) Lipase (04/01/18 12:24) Urinalysis - C+S If Indicated (04/01/18 12:24) Ct Brain W/O Iv Contrast(Rout) (04/01/18 12:24) Iv Access Insert/Monitor (04/01/18 12:24) Ecg Monitoring (04/01/18 12:24) Oximetry (04/01/18 12:24) Shunt Series (04/01/18 ) Sodium Chlor 0.9% 1000 Ml Inj (Ns 1000 M (04/01/18 12:30) Ondansetron Odt (Zofran Odt) (04/01/18 12:30) Ketorolac Inj (Toradol Inj) (04/01/18 14:15) Labs Laboratory Tests Test 04/01/18 12:50 White Blood Count 5.5 TH/MM3 Red Blood Count 4.35 MIL/MM3 Hemoglobin 12.5 GM/DL Hematocrit 37.8 % Mean Corpuscular Volume 86.9 FL Mean Corpuscular Hemoglobin 28.7 PG Mean Corpuscular Hemoglobin Concent 33.1 % Red Cell Distribution Width 13.4 % Platelet Count 294 TH/MM3 Mean Platelet Volume 7.6 FL Neutrophils (%) (Auto) 77.9 % Lymphocytes (%) (Auto) 13.3 % Monocytes (%) (Auto) 6.1 % Eosinophils (%) (Auto) 2.3 % Basophils (%) (Auto) 0.4 % Neutrophils # (Auto) 4.4 TH/MM3 Lymphocytes # (Auto) 0.7 TH/MM3 Monocytes # (Auto) 0.3 TH/MM3 Eosinophils # (Auto) 0.1 TH/MM3 Basophils # (Auto) 0.0 TH/MM3 CBC Comment DIFF FINAL Differential Comment Blood Urea Nitrogen 10 MG/DL Creatinine 0.63 MG/DL Random Glucose 109 MG/DL Total Protein 7.4 GM/DL Albumin 3.8 GM/DL Calcium Level 8.6 MG/DL Alkaline Phosphatase 85 U/L Aspartate Amino Transf (AST/SGOT) 23 U/L Alanine Aminotransferase (ALT/SGPT) 22 U/L Total Bilirubin 0.2 MG/DL Sodium Level 141 MEQ/L Potassium Level 3.4 MEQ/L Chloride Level 111 MEQ/L Carbon Dioxide Level 21.1 MEQ/L Anion Gap 9 MEQ/L Estimat Glomerular Filtration Rate 119 ML/MIN Lipase 86 U/L MDM Medical Decision Making Medical Screen Exam Complete: Yes Emergency Medical Condition: Yes Interpretation(s) Last Impressions Head CT 04/01/18 1224 Signed Impressions: CONCLUSION: 1. Old strokes on the right and left. Ventriculostomy catheter in good positio n. Ventricles remain normal in size. Shunt Study (Imaging) 04/01/18 0000 Signed Impressions: CONCLUSION: Negative shunt series examination. 1403 p.m. CBC within normal limits. Potassium 3.4. Differential Diagnosis Differential diagnosis including viral syndrome, pneumonia, shunt malfunction, cholecystitis, electrolyte imbalance. Narrative Course 22-year-old female with nausea vomiting. History of CP with LEAD LEVEL DESIGNER shunt in place. Patient was recently seen for nausea vomiting and diagnosis with left lower lobe pneumonia. Normal saline solution 100 cc an hour. Zofran 4 mg ODT. Toradol 30 mg IV. Diagnosis Primary Impression: Gastroenteritis Patient Instructions: General Instructions Additional Instructions: Continue with Zofran and Phenergan as Needed for nausea vomiting. Follow-up with personal physician. Return if persistent problem or worse. Med/Other Pt SpecificInfo: No Change to Meds Disposition: 01 DISCHARGE HOME Condition: Stable Talha Loco MD Apr 01, 2018 12:41
[2018-04-01 12:56] LABS: AUTOMATED NEUTROPHIL # 4.4 TH/MM3 (1.8-7.7); BASOPHIL % 0.4 % (0.0-2.0); EOSINOPHIL # 0.1 TH/MM3 (0-0.4); EOSINOPHIL % 2.3 % (0.0-4.0); HEMATOCRIT 37.8 % (35.0-46.0); HEMOGLOBIN 12.5 GM/DL (11.6-15.3); LYMPH % 13.3 % (9.0-44.0); LYMPHOCYTE # 0.7 TH/MM3 (1.0-4.8); MEAN CELL VOLUME 86.9 FL (80.0-100.0); MEAN CORPUSCULAR HEMOGLOBIN 28.7 PG (27.0-34.0); MEAN CORPUSCULAR HGB CONC 33.1 % (32.0-36.0); MEAN PLATELET VOLUME 7.6 FL (7.0-11.0); MONO % 6.1 % (0.0-8.0); MONOCYTE # 0.3 TH/MM3 (0-0.9); NEUT % 77.9 % (16.0-70.0); PLATELET COUNT 294 TH/MM3 (150-450); RED BLOOD COUNT 4.35 MIL/MM3 (4.00-5.30); RED CELL DISTRIBUTION WIDTH 13.4 % (11.6-17.2); WHITE BLOOD COUNT 5.5 TH/MM3 (4.0-11.0)
[2018-04-01 13:00] VITALS: O2SAT 96
[2018-04-01 13:03] LABS: CHLORIDE 111 MEQ/L (98-107); SODIUM (NA) 141 MEQ/L (136-145)
[2018-04-01 13:07] LABS: ALBUMIN 3.8 GM/DL (3.4-5.0); BICARBONATE 21.1 MEQ/L (21.0-32.0); BLOOD UREA NITROGEN 10 MG/DL (7-18); CALCIUM 8.6 MG/DL (8.5-10.1); GLUCOSE,RANDOM 109 MG/DL (74-106)
[2018-04-01 13:10] LABS: ALT (GPT) 22 U/L (10-53); AST (GOT) 23 U/L (15-37); CREATININE 0.63 MG/DL (0.50-1.00); GLOMERULAR FILTRATION RATE 119 ML/MIN (>89)
[2018-04-01 13:12] LABS: TOTAL BILIRUBIN ADULT 0.2 MG/DL (0.2-1.0); TOTAL PROTEIN 7.4 GM/DL (6.4-8.2)
[2018-04-01 13:13] LABS: ALKALINE PHOSPHATASE 85 U/L (45-117)
[2018-04-01 13:32] VITALS: BP 151/75; PULSE 100; RESP 20; O2SAT 96
--- NOTE | 2018-04-01 13:48 | RADRPT ---
EXAM DATE: 04/01/2018 1:08 PM EDT AGE/SEX: 22 years / Female INDICATIONS: Vomiting. CHIEF SCIENTIST shunt. CLINICAL DATA: This is the patient's initial encounter. Patient reports that signs and symptoms have been present for 1 day and indicates a pain score of Nonresponsive. MEDICAL/SURGICAL HISTORY: . Cerebral Palsy. Hydrocephalus. Gall stones. Inguinal hernia repair . CHIEF SCIENTIST shunt. Hamstring surgery. Vagal nerve stimulator. COMPARISON: [facility] [place], SHUNT SERIES, 02/18/2018. . FINDINGS: Examination includes two-view skull, two-view C-spine, and frontal views of the chest and abdomen. Ventriculostomy shunt tip is projected in the . The alignment of the tubing with the reservoir is maintained without evidence of separation. The shunt tubing has a normal course through the neck and chest without discontinuity or kink. The shunt tubing is coiled in the abdomen without displacement of the bowel about the distal tip. CONCLUSION: Negative shunt series examination. Electronically signed by: Marko Lyn MD 04/01/2018 1:47 PM EDT
--- NOTE | 2018-04-01 13:52 | RADRPT ---
EXAM DATE: 04/01/2018 1:17 PM EDT AGE/SEX: 22 years / Female INDICATIONS: Vomiting. History of hydrocephalus with ACUTE CARE NURSE shunt. CLINICAL DATA: This is the patient's sequela encounter. Patient reports that signs and symptoms have been present for 3 days and indicates a pain score of 0/10. MEDICAL/SURGICAL HISTORY: . Cerebral palsy. Hydrocephalus. Inguinal hernia repair. RADIATION DOSE: 43.03 CTDI (mGy) COMPARISON: [facility] [place], CT BRAIN W/O CONTRAST, 02/18/2018. . TECHNIQUE: CT of the head without contrast. Using automated exposure control and adjustment of the mA and/or kV according to patient size, radiation dose was kept as low as reasonably achievable to ob tain optimal diagnostic quality images. FINDINGS: Cerebrum: The ventricles are normal for age. No evidence of midline shift, mass lesion, hemorrhage or acute infarction. Old lacunar infarct on the right x2 and within the centrum semiovale region on t he left, unchanged. Right frontal ventriculostomy catheter extends across midline No extraaxial fluid collections are seen. Posterior Fossa: The cerebellum and brainstem are intact. The 4th ventricle is midline. The cerebe llopontine angle is unremarkable. Extracranial: The visualized portion of the orbits is intact. Skull: The calvaria is intact. No evidence of skull fracture. CONCLUSION: 1. Old strokes on the right and left. Ventriculostomy catheter in good position. Ventricles remain n ormal in size. Electronically signed by: Marko Lyn MD 04/01/2018 1:50 PM EDT
[2018-04-01] MEDS ORDERED: KETOROLAC TROMETHAMINE 30 MG/ML (IVP) VIAL IV PUSH ONE (14:15)
[2018-04-01 15:02] VITALS: BP 112/64; PULSE 93; RESP 16; O2SAT 96
== END 2018-04-01 15:30 | disposition home or self-care (01) ==
LOC: PHED 12:12
DX: K52.9 Noninfective gastroenteritis and colitis, unspecified (principal); R56.9 Unspecified convulsions; H54.62 Unqualified visual loss, left eye, normal vision right eye; G80.9 Cerebral palsy, unspecified; I25.2 Old myocardial infarction; Z98.2 Presence of cerebrospinal fluid drainage device
CPT/HCPCS: 70250; 70450; 71045; 72040; 74018; 80053; 83690; 85025; 96361; 96374; 99285; J1885; J7030

== ENCOUNTER 2018-04-12 12:30 | Emergency (ER) | payer OTHER ==
[~2018-04-12] VITALS: Ht 147.3 cm; Wt 60.0 kg
[2018-04-12 12:35] VITALS: BP 119/81; PULSE 92; RESP 19; TEMP 98.3; O2SAT 97
[2018-04-12] MEDS ORDERED: SODIUM CHLOR 0.9% 1000 ML INJ 1,000 ML IV SCH (13:03)
--- NOTE | 2018-04-12 13:09 | PD ---
HPI Chief Complaint: GI Complaint Time Seen by Provider: 12:37 Travel History International Travel<30 days: No Contact w/Intl Traveler<30days: No Traveled to known affect area: No History of Present Illness HPI The patient is a 22-year-old female who presents to the emergency department for nausea and vomiting. The mother states the patient at intermittent nausea and vomiting for the last week. The patient was seen in the emergency department prior to this visit for similar symptoms. The patient had a CT earlier this month for nausea and vomiting with abdominal pain and was noted to have gallstones. However, there is no acute pathology noted. The patient then saw her primary physician, Dr. Casiano earlier this week who thought her pain was secondary to the gallstones. The mother states the patient will have intermittent nausea and vomiting. The patient ate at approximately 8 AM, however, did not have any nausea or vomiting until 11 AM. She does complain of mild suprapubic discomfort as well as right upper quadrant pain. She does not have any postprandial pain or vomiting however. The mother denies any fever, chills, or sweats. The patient does have a history of cerebral palsy with underlying seizure disorder and takes multiple medications for seizures, also has a ventriculoperitoneal shunt. Symptoms are moderate without any alleviating factors. The mother did try Phenergan suppository prior to arrival without any alleviation of her symptoms. The mother does note the patient has a history of constipation but takes stool softeners and has been having normal bowel movements per her report. PFSH Past Medical History Asthma: No Heart Rhythm Problems: No Cardiovascular Problems: No Cerebral Palsy: Yes (BORN AT 24 WEEKS) COPD: No Developmental Delay: Yes Diminished Hearing: No Gastrointestinal Disorders: Yes GERD: No Gestational Age in Weeks: 24 Genitourinary: No Headaches: Yes Hiatal Hernia: No Hypertension: No Musculoskeletal: No Neurologic: Yes (HX- CP, HYDROCHELPHALUS) Reproductive: No Respiratory: No Immunizations Current: Yes Seizures: Yes Sickle Cell Disease: No Sleep Apnea: No Tetanus Vaccination: Unknown Influenza Vaccination: Yes PNEUMOCCOCAL Vaccine (Year): 2 ?: Not LMP: UTD Past Surgical History Abdominal Surgery: Yes (BILAT INGUINAL HERNIA REPAIR.) Ear Surgery: Yes (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.) Eye Surgery: Yes (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.) Neurologic Surgery: Yes (SHUNT, MULT SHUNT REVISIONS/Vagal nerve stimulator NS) Oral Surgery: Yes (TONGUE CLIPPING) Other Surgery: Yes (HIP, ABDUCTORS RELEASED;VAGAL NERVE STIMULATOR replaced 1 wk ago) Social History Alcohol Use: No Tobacco Use: No Substance Use: No Allergies-Medications (Allergen,Severity, Reaction): Coded Allergies: cefprozil (Verified Allergy, Severe, Swelling, 04/12/18) codeine (Verified Allergy, Severe, Nausea/Vomiting, 04/12/18) vancomycin (Verified Allergy, Severe, Rash, 04/12/18) Reported Meds & Prescriptions Reported Meds & Active Scripts Active Zofran Odt (Ondansetron Odt) 4 Mg Tab 4 Mg SL Q6HR PRN Geodon (Ziprasidone) 60 Mg Cap 60 Mg PO HS Geodon (Ziprasidone) 20 Mg Cap 20 Mg PO DAILY Zonegran (Zonisamide) 100 Mg Cap 300 Mg PO DAILY Reported Oxcarbazepine 600 Mg Tab 900 Mg PO BID Citalopram (Citalopram Hydrobromide) 20 Mg Tab 30 Mg PO DAILY Ativan (Lorazepam) 0.5 Mg Tab 0.5 Mg PO Q6H PRN Lamictal (Lamotrigine) 100 Mg Tab 150 Mg PO BID Review of Systems Except as stated in HPI: all other systems reviewed are Neg General / Constitutional: No: Fever Cardiovascular: No: Chest Pain or Discomfort Respiratory: No: Cough, Shortness of Breath Gastrointestinal: Positive: Nausea, Vomiting, Abdominal Pain, Constipation ( History of constipation), No: Diarrhea Musculoskeletal: No: Edema Neurologic: Positive: Other (History of cerebral palsy with right upper extremity contracture and ventriculoperitoneal shunt in place) Physical Exam Narrative GENERAL: Awake, alert, pleasant 22-year-old female who appears her stated age and is in no acute respiratory distress. SKIN: Focused skin assessment warm/dry. HEAD: Atraumatic. Normocephalic. 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 ENT: No nasal bleeding or discharge. Mucous membranes pink and moist. NECK: Trachea midline. No JVD. CARDIOVASCULAR: Regular rate and rhythm. No murmur appreciated. Vagal stimulator in place left chest wall. RESPIRATORY: No accessory muscle use. Clear to auscultation. Breath sounds equal bilaterally. GASTROINTESTINAL: Abdomen soft, mild epigastric to right upper quadrant tenderness and suprapubic tenderness. No guarding or rigidity. MUSCULOSKELETAL: Contracture of the right upper extremity noted. NEUROLOGICAL: Awake and alert. Blind in left eye. Contractures of the right upper extremity. Follows simple commands. PSYCHIATRIC: Appropriate mood and affect; insight and judgment normal. Data Data Last Documented VS Vital Signs Date Time Temp Pulse Resp B/P (MAP) Pulse Ox O2 Delivery O2 Flow Rate FiO2 04/12/18 15:31 04/12/18 14:34 84 16 97 Room Air 04/12/18 12:35 98.3 Orders Orders Complete Blood Count With Diff (04/12/18 13:03) Comprehensive Metabolic Panel (04/12/18 13:03) Lipase (04/12/18 13:03) Lactic Acid (04/12/18 13:03) Urinalysis - C+S If Indicated (04/12/18 13:03) Us Abdomen Gallbladder (04/12/18 ) Iv Access Insert/Monitor (04/12/18 13:03) Ecg Monitoring (04/12/18 13:03) Oximetry (04/12/18 13:03) Sodium Chlor 0.9% 1000 Ml Inj (Ns 1000 M (04/12/18 13:03) Sodium Chloride 0.9% Flush (Ns Flush) (04/12/18 13:15) Metoclopramide Inj (Reglan Inj) (04/12/18 13:15) Prochlorperazine Inj (Compazine Inj) (04/12/18 15:00) Ed Discharge Order (04/12/18 14:55) Labs Laboratory Tests Test 04/12/18 13:15 White Blood Count 6.1 TH/MM3 Red Blood Count 4.63 MIL/MM3 Hemoglobin 13.5 GM/DL Hematocrit 40.9 % Mean Corpuscular Volume 88.4 FL Mean Corpuscular Hemoglobin 29.1 PG Mean Corpuscular Hemoglobin Concent 33.0 % Red Cell Distribution Width 14.0 % Platelet Count 260 TH/MM3 Mean Platelet Volume 7.6 FL Neutrophils (%) (Auto) 81.9 % Lymphocytes (%) (Auto) 11.0 % Monocytes (%) (Auto) 5.3 % Eosinophils (%) (Auto) 1.4 % Basophils (%) (Auto) 0.4 % Neutrophils # (Auto) 5.0 TH/MM3 Lymphocytes # (Auto) 0.7 TH/MM3 Monocytes # (Auto) 0.3 TH/MM3 Eosinophils # (Auto) 0.1 TH/MM3 Basophils # (Auto) 0.0 TH/MM3 CBC Comment DIFF FINAL Differential Comment Urine Color YELLOW Urine Turbidity HAZY Urine pH 7.0 Urine Specific [place] 1.020 Urine Protein NEG mg/dL Urine Glucose (UA) NEG mg/dL Urine Ketones NEG mg/dL Urine Occult Blood NEG Urine Nitrite NEG Urine Bilirubin NEG Urine Urobilinogen LESS THAN 2 mg/dL Urine Leukocyte Esterase TRACE Urine RBC LESS THAN 1 /hpf Urine WBC 1 /hpf Urine Squamous Epithelial Cells 3 /hpf Urine Mucus FEW /lpf Microscopic Urinalysis Comment CULT NOT INDICATED Blood Urea Nitrogen 13 MG/DL Creatinine 0.73 MG/DL Random Glucose 78 MG/DL Total Protein 7.6 GM/DL Albumin 4.0 GM/DL Calcium Level 8.4 MG/DL Alkaline Phosphatase 81 U/L Aspartate Amino Transf (AST/SGOT) 15 U/L Alanine Aminotransferase (ALT/SGPT) 18 U/L Total Bilirubin 0.2 MG/DL Sodium Level 143 MEQ/L Potassium Level 4.1 MEQ/L Chloride Level 110 MEQ/L Carbon Dioxide Level 24.4 MEQ/L Anion Gap 9 MEQ/L Estimat Glomerular Filtration Rate 101 ML/MIN Lactic Acid Level 0.9 mmol/L Lipase 119 U/L [facility] Medical Decision Making Medical Screen Exam Complete: Yes Emergency Medical Condition: Yes Medical Record Reviewed: Yes Interpretation(s) Laboratory Tests Test 04/12/18 13:15 White Blood Count 6.1 TH/MM3 Red Blood Count 4.63 MIL/MM3 Hemoglobin 13.5 GM/DL Hematocrit 40.9 % Mean Corpuscular Volume 88.4 FL Mean Corpuscular Hemoglobin 29.1 PG Mean Corpuscular Hemoglobin Concent 33.0 % Red Cell Distribution Width 14.0 % Platelet Count 260 TH/MM3 Mean Platelet Volume 7.6 FL Neutrophils (%) (Auto) 81.9 % Lymphocytes (%) (Auto) 11.0 % Monocytes (%) (Auto) 5.3 % Eosinophils (%) (Auto) 1.4 % Basophils (%) (Auto) 0.4 % Neutrophils # (Auto) 5.0 TH/MM3 Lymphocytes # (Auto) 0.7 TH/MM3 Monocytes # (Auto) 0.3 TH/MM3 Eosinophils # (Auto) 0.1 TH/MM3 Basophils # (Auto) 0.0 TH/MM3 CBC Comment DIFF FINAL Differential Comment Urine Color YELLOW Urine Turbidity HAZY Urine pH 7.0 Urine Specific [place] 1.020 Urine Protein NEG mg/dL Urine Glucose (UA) NEG mg/dL Urine Ketones NEG mg/dL Urine Occult Blood NEG Urine Nitrite NEG Urine Bilirubin NEG Urine Urobilinogen LESS THAN 2 mg/dL Urine Leukocyte Esterase TRACE Urine RBC LESS THAN 1 /hpf Urine WBC 1 /hpf Urine Squamous Epithelial Cells 3 /hpf Urine Mucus FEW /lpf Microscopic Urinalysis Comment CULT NOT INDICATED Blood Urea Nitrogen 13 MG/DL Creatinine 0.73 MG/DL Random Glucose 78 MG/DL Total Protein 7.6 GM/DL Albumin 4.0 GM/DL Calcium Level 8.4 MG/DL Alkaline Phosphatase 81 U/L Aspartate Amino Transf (AST/SGOT) 15 U/L Alanine Aminotransferase (ALT/SGPT) 18 U/L Total Bilirubin 0.2 MG/DL Sodium Level 143 MEQ/L Potassium Level 4.1 MEQ/L Chloride Level 110 MEQ/L Carbon Dioxide Level 24.4 MEQ/L Anion Gap 9 MEQ/L Estimat Glomerular Filtration Rate 101 ML/MIN Lactic Acid Level 0.9 mmol/L Lipase 119 U/L Differential Diagnosis Differential diagnosis includes dehydration, gastroenteritis, gastritis, peptic ulcer disease, symptomatic cholelithiasis, cholecystitis, pancreatitis, UTI, medication side effect. Narrative Course IV was established, labs are drawn and sent, the patient was placed on cardiac telemetry monitoring and continuous pulse oximetry monitoring. The patient was administered Reglan and IV fluids. Ultrasound of the gallbladder was obtained. The patient's white count is normal. LFTs and lipase are normal. Lactic acid is within normal limits. Ultrasound reveals cholelithiasis, but no evidence of pericholecystic fluid or gallbladder wall thickening. The patient has had intermittent nausea and vomiting for the last week does not appear to be postprandial, I doubt biliary colic or symptomatic cholelithiasis. The patient may benefit from outpatient follow-up with gastroenterology for outpatient EGD, if negative, then possibly referral to surgery in regards to gallstones. However, the patient is not currently tachycardic and labs are within normal limits. The patient was reevaluated at 2:50 PM, still had mild nausea. Therefore, the patient was administered Compazine intravenously. The patient was then given a p.o. challenge with Gatorade. The patient tolerated Gatorade without difficulty, there is no further vomiting. The patient is stable for outpatient follow-up. Diagnosis Primary Impression: Nausea & vomiting Qualified Codes: R11.2 - Nausea with vomiting, unspecified Additional Impression: Cholelithiasis Qualified Codes: K80.20 - Calculus of gallbladder without cholecystitis without obstruction Patient Instructions: General Instructions Additional Instructions: Please provide the mother a copy of the lab results and ultrasound results at discharge. Follow-up with gastroenterology on an outpatient basis. He may benefit from outpatient EGD. Follow-up with your primary physician. Med/Other Pt SpecificInfo: Prescription(s) given Scripts Ondansetron Odt (Zofran Odt) 4 Mg Tab 4 MG SL Q6HR Y for Nausea/Vomiting, #10 TAB 0 Refills Prov: Jimmy Damico MD 04/12/18 Disposition: 01 DISCHARGE HOME Condition: Stable Jimmy Damico MD Apr 12, 2018 13:09
[2018-04-12] MEDS ORDERED: METOCLOPRAMIDE HCL 10 MG/2 ML VIAL IV PUSH ONE (13:15)
[2018-04-12] MEDS ORDERED: SODIUM CHLORIDE 0.9% FLUSH 10 ML FLUSH IV FLUSH PRN (13:15)
[2018-04-12 13:28] VITALS: O2SAT 97
[2018-04-12 13:35] LABS: BASOPHIL % 0.4 % (0.0-2.0); EOSINOPHIL # 0.1 TH/MM3 (0-0.4); EOSINOPHIL % 1.4 % (0.0-4.0); HEMATOCRIT 40.9 % (35.0-46.0); HEMOGLOBIN 13.5 GM/DL (11.6-15.3); LYMPHOCYTE # 0.7 TH/MM3 (1.0-4.8); MEAN CELL VOLUME 88.4 FL (80.0-100.0); MEAN CORPUSCULAR HEMOGLOBIN 29.1 PG (27.0-34.0); MEAN PLATELET VOLUME 7.6 FL (7.0-11.0); MONO % 5.3 % (0.0-8.0); MONOCYTE # 0.3 TH/MM3 (0-0.9); NEUT % 81.9 % (16.0-70.0); PLATELET COUNT 260 TH/MM3 (150-450); RED BLOOD COUNT 4.63 MIL/MM3 (4.00-5.30); WHITE BLOOD COUNT 6.1 TH/MM3 (4.0-11.0)
[2018-04-12 13:44] LABS: BILIRUBIN, URINE NEG (NEG); BLOOD, URINE NEG (NEG); GLUCOSE,URINE NEG (NEG); KETONE, URINE NEG (NEG); MUCUS URINE FEW /lpf (OCC); NITRITE,URINE NEG (NEG); SQUAMOUS EPITHELIAL CELL URINE 3 /hpf (0-5); URINE COLOR YELLOW (YELLW/STRAW); URINE LEUKOCYTE ESTERASE TRACE (NEG)
[2018-04-12 13:54] LABS: ALKALINE PHOSPHATASE 81 U/L (45-117); ALT (GPT) 18 U/L (10-53); AST (GOT) 15 U/L (15-37); BICARBONATE 24.4 MEQ/L (21.0-32.0); BLOOD UREA NITROGEN 13 MG/DL (7-18); CALCIUM 8.4 MG/DL (8.5-10.1); CHLORIDE 110 MEQ/L (98-107); CREATININE 0.73 MG/DL (0.50-1.00); GLOMERULAR FILTRATION RATE 101 ML/MIN (>89); GLUCOSE,RANDOM 78 MG/DL (74-106); SODIUM (NA) 143 MEQ/L (136-145); TOTAL BILIRUBIN ADULT 0.2 MG/DL (0.2-1.0); TOTAL PROTEIN 7.6 GM/DL (6.4-8.2)
[2018-04-12 14:34] VITALS: BP 115/78; PULSE 84; RESP 16; O2SAT 97
--- NOTE | 2018-04-12 14:40 | RADRPT ---
EXAM DATE: 04/12/2018 2:24 PM EDT AGE/SEX: 22 years / Female INDICATIONS: Right upper quadrant pain. CLINICAL DATA: This is the patient's subsequent encounter. Patient reports that signs and/or symptom s have been present for 1 week and indicates a pain score of 5/10. MEDICAL/SURGICAL HISTORY: . Hydrocephalus. Cerebral palsy. Bronchopulmonary dysplasia. . Brain shunt. Bilateral inguinal hernia repair. Orthopedic surgeries. COMPARISON: No prior exams available for comparison. No external comparison. MEASUREMENTS (cm x cm x cm): Liver:__ 12.1 cm length Common Bile Duct:__ 3mm FINDINGS: Liver: Normal echotexture without focal lesion or ductal dilatation. Portal Vein: Hepatopedal flow seen in portal vein. Common Duct: No intraluminal mass or stone visualized. Gallbladder: Demonstrates no wall thickening or pericholecystic fluid. Stones visualized. Pancreas: Not well visualized. Right Kidney: Normal echotexture and cortical thickness. No mass or hydronephrosis. Other: None. CONCLUSION: 1. Positive for gallstones. No biliary ductal dilatation. Pancreas not well visualized. No right-tonia ed hydronephrosis. Electronically signed by: Alvin Monsalve MD 04/12/2018 2:39 PM EDT
[2018-04-12] MEDS ORDERED: ZOFR4TAB3 SL (14:45)
[2018-04-12] MEDS ORDERED: PROCHLORPERAZINE INJ 10 MG/2 ML VIAL IV PUSH ONE (15:00)
== END 2018-04-12 15:50 | disposition home or self-care (01) ==
LOC: NEPC 12:30
DX: R11.2 Nausea with vomiting, unspecified (principal); K80.20 Calculus of gallbladder without cholecystitis without obstruction; G91.9 Hydrocephalus, unspecified; G80.9 Cerebral palsy, unspecified; G40.909 Epilepsy, unspecified, not intractable, without status epilepticus; R10.11 Right upper quadrant pain; K59.00 Constipation, unspecified; Z98.2 Presence of cerebrospinal fluid drainage device; Z88.1 Allergy status to other antibiotic agents; Z88.5 Allergy status to narcotic agent
CPT/HCPCS: 76705; 80053; 81001; 83605; 83690; 85025; 96361; 96374; 96375; 99284; J0780; J2765; J7030

== ENCOUNTER 2018-04-19 21:48 | Emergency (ER) | payer OTHER ==
[~2018-04-19 21:48] MED LIST changes: -LEVO500T8 PO; -METR-1 PO; -PROM1SUP7 RECTAL
[2018-04-19 22:16] VITALS: BP 139/91; PULSE 117; RESP 20; TEMP 97.9
[2018-04-19] MEDS ORDERED: MAGNESIUM CITRATE SOLN 300 ML BTL PO ONE (23:45)
[2018-04-19] MEDS ORDERED: GLYCERIN CHILD SUPPOSITORY RECTAL ONE (23:45)
[2018-04-20] MEDS ORDERED: ONDANSETRON ODT 4 MG TAB PO ONE
[2018-04-20] MEDS ORDERED: MAGNESIUM CITRATE SOLN 300 ML BTL PO ONE (00:45)
--- NOTE | 2018-04-20 01:06 | PD ---
HPI Chief Complaint: Abdominal Pain Time Seen by Provider: 23:08 Travel History International Travel<30 days: No Contact w/Intl Traveler<30days: No Traveled to known affect area: No History of Present Illness HPI Is a 22-year-old woman with a history of cerebral palsy, seizures, constipation , presents to the emergency department and intermittent vomiting on so. Symptoms wax and wane. They are a little bit improved yesterday but then worse again today. Multiple episodes of vomiting prior to arrival. Multiple previous ED visits and workup including workup of her shunt, CT head, x-rays and shunt series, CT abdomen, and a right upper quadrant ultrasound. It revealed gallstones, and a normal working shunt. She was admitted to [facility] recently as part of this consult a neurologist who completed additional shunt studies and concluded that symptoms are not from her shunt. History Past Medical History Narrative Medical Seizures Gallstones Cerebral palsy PNEUMOCCOCAL Vaccine (Year): 2 Social History Alcohol Use: No Tobacco Use: No Allergies-Medications (Allergen,Severity, Reaction): Coded Allergies: cefprozil (Verified Allergy, Severe, Swelling, 04/19/18) codeine (Verified Allergy, Severe, Nausea/Vomiting, 04/19/18) vancomycin (Verified Allergy, Severe, Rash, 04/19/18) Reported Meds & Prescriptions Reported Meds & Active Scripts Active Zofran Odt (Ondansetron Odt) 4 Mg Tab 4 Mg SL Q6HR PRN Geodon (Ziprasidone) 60 Mg Cap 60 Mg PO HS Geodon (Ziprasidone) 20 Mg Cap 20 Mg PO DAILY Zonegran (Zonisamide) 100 Mg Cap 300 Mg PO DAILY Reported Oxcarbazepine 600 Mg Tab 900 Mg PO BID Citalopram (Citalopram Hydrobromide) 20 Mg Tab 30 Mg PO DAILY Ativan (Lorazepam) 0.5 Mg Tab 0.5 Mg PO Q6H PRN Lamictal (Lamotrigine) 100 Mg Tab 150 Mg PO BID Review of Systems ROS Limitations: Clinical Condition Except as stated in HPI: all other systems reviewed are Neg Physical Exam Narrative GENERAL: 22-year-old woman, small, flexor contractures related to cerebral palsy. SKIN: Focused skin assessment warm/dry. HEAD: Atraumatic. Normocephalic. CARDIOVASCULAR: Regular rate and rhythm. No murmur appreciated. RESPIRATORY: No accessory muscle use. Clear to auscultation. Breath sounds equal bilaterally. GASTROINTESTINAL: Soft, no significant tenderness.. MUSCULOSKELETAL: No obvious deformities. Contracture deformities. NEUROLOGICAL: Awake and alert. No obvious cranial nerve deficits. Motor grossly within normal limits. Normal speech. PSYCHIATRIC: Somewhat childlike. RECTAL: Obstipation in the rectal vault. Disimpacted. Large amount of hard stool. Data Data Last Documented VS Vital Signs Date Time Temp Pulse Resp B/P (MAP) Pulse Ox O2 Delivery O2 Flow Rate FiO2 04/19/18 22:16 97.9 117 20 139/91 (107) Orders Orders Glycerin Child Supp (Glycerin Child Supp (04/19/18 23:45) Magnesium Citrate Liq (Citroma Liq) (04/19/18 23:45) Ondansetron Odt (Zofran Odt) (04/20/18 00:00) Abdomen, Flat & Upright (04/20/18 ) Magnesium Citrate Liq (Citroma Liq) (04/20/18 00:45) MDM Medical Decision Making Medical Screen Exam Complete: Yes Emergency Medical Condition: Yes Interpretation(s) Nonobstructive bowel gas pattern, nonspecific Differential Diagnosis Obstruction, obstipation, UTI, other Narrative Course Medical decision making This is a 22-year-old with cerebral palsy with intermittent episodes of vomiting for the past several weeks. I reviewed all of her extensive workup including imaging, labs, urine. Seems like nothing is been found as a result. She has been fairly constipated. On rectal exam she had significant amount of obstipation and hard impacted stools. These were disimpacted and a large amount of stool resulted. Will treat for constipation. Will check an abdominal x-ray. I do not think it is worthwhile to repeat all her labs and urine test and imaging again at this point. She was admitted to [facility]. Now she is disimpacted I think we can restart her more aggressive bowel regimen and have her follow-up closely with her primary physician and return for any worsening symptoms. Diagnosis Primary Impression: VOMITING, UNSPECIFIED Additional Instructions: If patient has no substantial bowel movement next 24 hours, take 1 more dose of magnesium citrate, and glycerin suppository. Continue medicines for vomiting as needed. 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 Med/Other Pt SpecificInfo: Prescription(s) given Scripts Glycerin Pediatric Supp (Pedia-Lax Supp) 1 Gm Supp 1 SUPP RECTAL ONCE Y for CONSTIPATION, #1 SUPP 0 Refills Prov: Marko Huizar MD 04/20/18 Magnesium Citrate Liq (Magnesium Citrate Liq) 300 Ml Liq 75 ML PO ONCE, #1 BOTTLE 0 Refills Prov: Marko Huizar MD 04/20/18 Disposition: 01 DISCHARGE HOME Condition: Stable Marko Huizar MD Apr 20, 2018 01:06
--- NOTE | 2018-04-20 01:29 | RADRPT ---
EXAM DATE: 04/20/2018 1:09 AM EDT AGE/SEX: 22 years / Female INDICATIONS: Obstruction. Vomiting for three weeks. CLINICAL DATA: This is the patient's initial encounter. Patient reports that signs and symptoms have been present for 3 weeks and indicates a pain score of Nonresponsive. MEDICAL/SURGICAL HISTORY: . Seizures. Hydrocephalus. Cerebral palsy. Bronchopulmonary dysplasia . . Brain shunt. Bilateral inguinal hernia repair. Orthopedic surgeries. COMPARISON: No prior exams available for comparison. FINDINGS: Supine and upright views of the abdomen were performed. Gas and stool is noted segmental in the colon . There is a large air-fluid level in the stomach. There are multiple loops of nondilated air-contain ing small bowel greatest in the right side of the abdomen. There are several small air-fluid levels. Lung bases are clear. No abnormal masses, calcifications, or organomegaly is seen. The visualized low er lungs are clear. No evidence of free intraperitoneal gas. There is a moderate rotatory scoliosis o f the thoracic and lumbar spine. Ventriculoperitoneal shunt catheter tubing is noted. CONCLUSION: 1. Nonspecific, nonobstructive bowel gas pattern which may represent an ileus or gastroenteritis. 2. Ventricular shunt catheter tubing present. Electronically signed by: Eb Newell MD 04/20/2018 1:28 AM EDT
[2018-04-20] MEDS ORDERED: PEDI1SUP RECTAL (01:50)
[2018-04-20] MEDS ORDERED: MAGNSOL2 PO (01:50)
[2018-04-20] MEDS ORDERED: SENN8.6T36 PO (14:38)
== END 2018-04-20 02:18 | disposition home or self-care (01) ==
LOC: NEPC 21:48
DX: R11.10 Vomiting, unspecified (principal); G80.9 Cerebral palsy, unspecified; R56.9 Unspecified convulsions; Z79.899 Other long term (current) drug therapy; Z88.5 Allergy status to narcotic agent
CPT/HCPCS: 74019; 99284

== ENCOUNTER 2018-04-20 14:02 | Observation (INO) | payer OTHER ==
[~2018-04-20] VITALS: Ht 124.5 cm; Wt 36.5 kg
[2018-04-20] VITALS (8 sets, daily range): BP systolic 108–141; BP diastolic 47–85; PULSE 72–102; RESP 16–22; TEMP 98–98.5; O2SAT 92–100
[~2018-04-20 14:02] MED LIST changes: +MAGNSOL2 PO; +PEDI1SUP RECTAL
[2018-04-20] MEDS ORDERED: PROCHLORPERAZINE INJ 10 MG/2 ML VIAL IV PUSH ONE (14:30)
[2018-04-20] MEDS ORDERED: SODIUM CHLORIDE 0.9% FLUSH 10 ML FLUSH IV FLUSH PRN ×2 (14:30→17:45)
[2018-04-20] MEDS ORDERED: SODIUM CHLORID 0.9% 500 ML INJ 500 ML IV ONE (14:30)
--- NOTE | 2018-04-20 14:37 | PD ---
HPI Chief Complaint: GI Complaint Time Seen by Provider: 14:16 Travel History International Travel<30 days: No Contact w/Intl Traveler<30days: No Traveled to known affect area: No History of Present Illness HPI Patient presents to the emergency department for vomiting 4 weeks. She was seen at [facility] on yesterday and diagnosed with constipation. States that she was able to move her bowels both in the ER and a lot when she got home last night. Is vomiting phlegm and p.o. intake. Mom is concerned because she is unable to hold any of her medication down. Positive diffuse abdominal pain, positive chills, positive nausea vomiting, positive headache after the vomiting. She denies fever, cough, chest pain, shortness of breath. Mom states that she is vomiting despite Zofran at 9:30 this morning and Phenergan at 1:00 this afternoon. PFSH Past Medical History Asthma: No Heart Rhythm Problems: No Cardiovascular Problems: No Cerebral Palsy: Yes (BORN AT 24 WEEKS) COPD: No Developmental Delay: Yes Diminished Hearing: No Gastrointestinal Disorders: Yes GERD: No Gestational Age in Weeks: 24 Genitourinary: No Headaches: Yes Hiatal Hernia: No Hypertension: No Musculoskeletal: No Neurologic: Yes (HX- CP, HYDROCHELPHALUS) Reproductive: No Respiratory: No Immunizations Current: Yes Seizures: Yes Sickle Cell Disease: No Sleep Apnea: No Tetanus Vaccination: Unknown Influenza Vaccination: Yes PNEUMOCCOCAL Vaccine (Year): 2 ?: Not Past Surgical History Abdominal Surgery: Yes (BILAT INGUINAL HERNIA REPAIR.) Ear Surgery: Yes (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.) Eye Surgery: Yes (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.) Neurologic Surgery: Yes (SHUNT, MULT SHUNT REVISIONS/Vagal nerve stimulator NS) Oral Surgery: Yes (TONGUE CLIPPING) Other Surgery: Yes (HIP, ABDUCTORS RELEASED;VAGAL NERVE STIMULATOR replaced 1 wk ago) Social History Alcohol Use: No Tobacco Use: No Substance Use: No Allergies-Medications (Allergen,Severity, Reaction): Coded Allergies: cefprozil (Verified Allergy, Severe, Swelling, 04/20/18) codeine (Verified Allergy, Severe, Nausea/Vomiting, 04/20/18) vancomycin (Verified Allergy, Severe, Rash, 04/20/18) Reported Meds & Prescriptions Reported Meds & Active Scripts Active Pedia-Lax Supp (Glycerin) 1 Gm Supp 1 Supp RECTAL ONCE PRN Zofran Odt (Ondansetron Odt) 4 Mg Tab 4 Mg SL Q6HR PRN Geodon (Ziprasidone) 60 Mg Cap 60 Mg PO HS Geodon (Ziprasidone) 20 Mg Cap 20 Mg PO DAILY Zonegran (Zonisamide) 100 Mg Cap 300 Mg PO DAILY Reported Senna-Tabs (Sennosides) 8.6 Mg Tab 8.6 Mg PO HS Oxcarbazepine 600 Mg Tab 900 Mg PO BID Citalopram (Citalopram Hydrobromide) 20 Mg Tab 30 Mg PO DAILY Ativan (Lorazepam) 0.5 Mg Tab 0.5 Mg PO Q6H PRN Lamictal (Lamotrigine) 100 Mg Tab 150 Mg PO BID Review of Systems Except as stated in HPI: all other systems reviewed are Neg Physical Exam Narrative GENERAL: Thin,ceebral palsy SKIN: Focused skin assessment warm/dry. HEAD: Atraumatic. Normocephalic. EYES: Pupils equal and round. No scleral icterus. No injection or drainage. ENT: No nasal bleeding or discharge. Mucous membranes dry. NECK: Trachea midline. No JVD. CARDIOVASCULAR: Regular rate and rhythm. No murmur appreciated. RESPIRATORY: No accessory muscle use. Clear to auscultation. Breath sounds equal bilaterally. GASTROINTESTINAL: Abdomen soft, diffuse tenderness, nondistended. Hepatic and splenic margins not palpable. MUSCULOSKELETAL: RUE contractures. No clubbing. No cyanosis. No edema. NEUROLOGICAL: Awake and alert. No obvious cranial nerve deficits. Motor grossly within normal limits. Normal speech. PSYCHIATRIC: Appropriate mood and affect; insight and judgment normal. Data Data Last Documented VS Vital Signs Date Time Temp Pulse Resp B/P (MAP) Pulse Ox O2 Delivery O2 Flow Rate FiO2 04/20/18 16:57 72 16 108/47 (67) 100 Room Air 04/20/18 14:14 98.0 Orders Orders Beta Hcg (Quant/Titer) (04/20/18 14:28) Complete Blood Count With Diff (04/20/18 14:28) Comprehensive Metabolic Panel (04/20/18 14:28) Lipase (04/20/18 14:28) Lactic Acid (04/20/18 14:28) Prothrombin Time / Inr (Pt) (04/20/18 14:28) Act Partial Throm Time (Ptt) (04/20/18 14:28) Ct Abd/Pel W/O Iv Contrast (04/20/18 14:28) Iv Access Insert/Monitor (04/20/18 14:28) Ecg Monitoring (04/20/18 14:28) Oximetry (04/20/18 14:28) Sodium Chloride 0.9% Flush (Ns Flush) (04/20/18 14:30) Prochlorperazine Inj (Compazine Inj) (04/20/18 14:30) Sodium Chlorid 0.9% 500 Ml Inj (Ns 500 M (04/20/18 14:30) Lamotrigine (Lamictal) (04/20/18 15:00) Oxcarbazepine (Trileptal) (04/20/18 15:00) Zonisamide (Zonegran) (04/20/18 15:00) Pill Splitter (Pill Splitter) (04/20/18 15:15) Potassium Chloride (Kcl) (04/20/18 15:15) Magnesium (Mg) (04/20/18 15:10) Admit Order (Ed Use Only) (04/20/18 17:28) Labs Laboratory Tests Test 04/20/18 14:41 04/20/18 14:42 Lactic Acid Level 1.2 mmol/L White Blood Count 4.0 TH/MM3 Red Blood Count 4.65 MIL/MM3 Hemoglobin 14.2 GM/DL Hematocrit 41.5 % Mean Corpuscular Volume 89.4 FL Mean Corpuscular Hemoglobin 30.5 PG Mean Corpuscular Hemoglobin Concent 34.1 % Red Cell Distribution Width 13.3 % Platelet Count 329 TH/MM3 Mean Platelet Volume 7.8 FL Neutrophils (%) (Auto) 68.4 % Lymphocytes (%) (Auto) 21.3 % Monocytes (%) (Auto) 8.5 % Eosinophils (%) (Auto) 0.6 % Basophils (%) (Auto) 1.2 % Neutrophils # (Auto) 2.9 TH/MM3 Lymphocytes # (Auto) 0.8 TH/MM3 Monocytes # (Auto) 0.3 TH/MM3 Eosinophils # (Auto) 0.0 TH/MM3 Basophils # (Auto) 0.0 TH/MM3 CBC Comment DIFF FINAL Differential Comment Prothrombin Time 10.9 SEC Prothromb Time International Ratio 1.1 RATIO Activated Partial Thromboplast Time 25.7 SEC Blood Urea Nitrogen 5 MG/DL Creatinine 0.69 MG/DL Random Glucose 101 MG/DL Total Protein 8.1 GM/DL Albumin 4.2 GM/DL Calcium Level 8.7 MG/DL Alkaline Phosphatase 102 U/L Aspartate Amino Transf (AST/SGOT) 13 U/L Alanine Aminotransferase (ALT/SGPT) 24 U/L Total Bilirubin 0.3 MG/DL Sodium Level 143 MEQ/L Potassium Level 3.3 MEQ/L Chloride Level 108 MEQ/L Carbon Dioxide Level 24.9 MEQ/L Anion Gap 10 MEQ/L Estimat Glomerular Filtration Rate 107 ML/MIN Magnesium Level 2.6 MG/DL Lipase 83 U/L Human Chorionic Gonadotropin, Quant LESS THAN 1 MIU/ML MDM Medical Decision Making Medical Screen Exam Complete: Yes Emergency Medical Condition: Yes Interpretation(s) Labs:Labs: decrease potassium Last Impressions Abdomen/Pelvis CT 04/20/18 1428 Impressions: CONCLUSION: 1. Gastric distention with an oval-shaped radiopaque density in the stomach me asuring up to 2.5 x 1.5 cm. No bowel obstruction. Trace free fluid. No free air . 2. Stable appearance of ventriculoperitoneal shunt catheter. Small hiatal lynda ia. Differential Diagnosis Colitis, appendicitis, pancreatitis, cholecystitis,choleliathiasis, bowel obstruction, Narrative Course Patient presents to the emergency department with persistent vomiting. Patient placed on director of cardiac cath lab, IV access obtained, and labs/CT/IV fluids/IV Compazine ordered. 1458: Mom states her legs are shaking which often happen before a seizure. She didn't get her sz meds yesterday or today. I have ordered lamotrigine 150mg po, oxcarbazepine 900mg po, zonisamide 300mg po. Patient states that she feels better. 1511: 20MEQ KCL ordered. Of note, patient able to tolerate po in ER. Physician Communication Physician Communication 1628: Spoke to Dr. Monsalve about CT read. Dilated stomach, density in abdomen. 1628: Paged GI, Dr. Meade.Dr Meade-> May be food, pills unknown what density is. Try to place NGT, admit for obs. Mom states patient won't tolerate NG tube/ declined NG tube. Called Dr. Meade and advised of that and that patient's last meal was a piece of pretzel 4P yesterday. And that she feeds herself. Will admit to obs and advised admit MD, Dr. Ramos to place GI consult. Dr Meade advised patient may need endoscopy, but will evaluate. Diagnosis Primary Impression: Abdominal pain Qualified Codes: R10.9 - Unspecified abdominal pain Additional Impressions: Intractable nausea and vomiting Qualified Codes: R11.2 - Nausea with vomiting, unspecified Hypokalemia Admitting Information Admitting Physician Requests: Observation Condition: Stable Renay Galvan MD Apr 20, 2018 14:37
[2018-04-20] MEDS ORDERED: SENN8.6T36 PO (14:38)
[2018-04-20 14:52] LABS: AUTOMATED NEUTROPHIL # 2.9 TH/MM3 (1.8-7.7); BASOPHIL % 1.2 % (0.0-2.0); EOSINOPHIL % 0.6 % (0.0-4.0); HEMATOCRIT 41.5 % (35.0-46.0); HEMOGLOBIN 14.2 GM/DL (11.6-15.3); LYMPH % 21.3 % (9.0-44.0); LYMPHOCYTE # 0.8 TH/MM3 (1.0-4.8); MEAN CELL VOLUME 89.4 FL (80.0-100.0); MEAN CORPUSCULAR HEMOGLOBIN 30.5 PG (27.0-34.0); MEAN CORPUSCULAR HGB CONC 34.1 % (32.0-36.0); MEAN PLATELET VOLUME 7.8 FL (7.0-11.0); MONO % 8.5 % (0.0-8.0); MONOCYTE # 0.3 TH/MM3 (0-0.9); NEUT % 68.4 % (16.0-70.0); PLATELET COUNT 329 TH/MM3 (150-450); RED BLOOD COUNT 4.65 MIL/MM3 (4.00-5.30); RED CELL DISTRIBUTION WIDTH 13.3 % (11.6-17.2)
[2018-04-20 14:57] LABS: CHLORIDE 108 MEQ/L (98-107); SODIUM (NA) 143 MEQ/L (136-145)
[2018-04-20 15:00] LABS: ALBUMIN 4.2 GM/DL (3.4-5.0); BICARBONATE 24.9 MEQ/L (21.0-32.0); CALCIUM 8.7 MG/DL (8.5-10.1)
[2018-04-20] MEDS ORDERED: ZONISAMIDE 100 MG CAP PO ONE (15:00)
[2018-04-20] MEDS ORDERED: lamoTRIgine 100 MG TAB PO ONE (15:00)
[2018-04-20] MEDS ORDERED: OXcarbazepine 600 MG TAB PO ONE (15:00)
[2018-04-20 15:01] LABS: BLOOD UREA NITROGEN 5 MG/DL (7-18); GLUCOSE,RANDOM 101 MG/DL (74-106)
[2018-04-20 15:02] LABS: INTERNATIONAL NORMALIZED RATIO 1.1 RATIO; PROTHROMBIN TIME - PATIENT 10.9 SEC (9.8-11.6)
[2018-04-20 15:03] LABS: ALT (GPT) 24 U/L (10-53); AST (GOT) 13 U/L (15-37); CREATININE 0.69 MG/DL (0.50-1.00); GLOMERULAR FILTRATION RATE 107 ML/MIN (>89)
[2018-04-20 15:05] LABS: TOTAL BILIRUBIN ADULT 0.3 MG/DL (0.2-1.0); TOTAL PROTEIN 8.1 GM/DL (6.4-8.2)
[2018-04-20 15:06] LABS: ALKALINE PHOSPHATASE 102 U/L (45-117)
[2018-04-20] MEDS ORDERED: POTASSIUM CHLORIDE 20 MEQ CONTROLLED RELEASE TAB PO ONE (15:15)
[2018-04-20] MEDS ORDERED: PILL SPLITTER OTHER PRN (15:15)
--- NOTE | 2018-04-20 16:19 | RADRPT ---
EXAM DATE: 04/20/2018 3:50 PM EDT AGE/SEX: 22 years / Female INDICATIONS: Vomiting and left abdominal pain today after being constipated and evacuating. CLINICAL DATA: This is the patient's initial encounter. Patient reports that signs and symptoms have been present for 2 days and indicates a pain score of 6/10. MEDICAL/SURGICAL HISTORY: . Seizures. Hydrocephalus. Cerebral palsy. Bronchopulmonary dysplasia . . Brain shunt. Bilateral inguinal hernia repair. Orthopedic surgeries. RADIATION DOSE: 4.94 CTDI (mGy) COMPARISON: [facility], CT ABDOMEN & PELVIS W/O CONTRAST, 03/30/2018. . TECHNIQUE: Multiple contiguous axial images were obtained through the abdomen. Images were obtained using multiple row detector helical technique. Using automated exposure control and adjustment of the mA and/or kV according to patient size, radiation dose was kept as low as reasonably achievable to o btain optimal diagnostic quality images. DICOM format image data is available electronically for rev iew and comparison. FINDINGS: Lung bases are clear. No acute findings in the liver, spleen, adrenals, kidneys or pancreas. Stomach is distended with an oval-shaped radiopaque density within the stomach. Calcified gallstone again noted in the gallbladder. Ventriculoperitoneal shunt catheter again noted, coiled in the pelvis. Trace free fluid. No free air. No acute bony abnormalities. Scoliosis. CONCLUSION: 1. Gastric distention with an oval-shaped radiopaque density in the stomach measuring up to 2.5 x 1. 5 cm. No bowel obstruction. Trace free fluid. No free air. 2. Stable appearance of ventriculoperitoneal shunt catheter. Small hiatal hernia. Electronically signed by: Alvin Monsalve MD 04/20/2018 4:18 PM EDT
[2018-04-20] MEDS ORDERED: SODIUM CHLOR 0.9% 1000 ML INJ 1,000 ML IV SCH (17:38)
[2018-04-20] MEDS ORDERED: LACTULOSE SYRUP 20 GM/30 ML CUP PO PRN (17:45)
[2018-04-20] MEDS ORDERED: ONDANSETRON ODT 4 MG TAB PO PRN (17:45)
[2018-04-20] MEDS ORDERED: SENNOSIDES 8.6 MG TAB PO PRN (17:45)
[2018-04-20] MEDS ORDERED: ACETAMINOPHEN 325 MG TAB PO PRN (17:45)
[2018-04-20] MEDS ORDERED: MAGNESIUM HYDROXIDE SUSP 30 ML CUP PO PRN (17:45)
[2018-04-20] MEDS ORDERED: NALOXONE HCL 0.4 MG/ML AMP IV PUSH PRN (17:45)
[2018-04-20] MEDS ORDERED: BISACODYL 10 MG SUPP RECTAL PRN (17:45)
[2018-04-20] MEDS: PROCHLORPERAZINE INJ 10 MG/2 ML VIAL IV PUSH PRN (18:41)
[2018-04-20] MEDS: SODIUM CHLORIDE 0.9% FLUSH 10 ML FLUSH IV FLUSH SCH (21:00)
--- NOTE | 2018-04-20 21:55 | MB ---
cc: Yoli Meade MD,Renay Jay MD DATE: 04/20/2018 REFERRING PHYSICIAN: Dr. Galvan REASON FOR CONSULTATION: Nausea and vomiting. HISTORY OF PRESENT ILLNESS: Ms. Ashley Collier is an unfortunate 22-year-old with cerebral palsy, brought to the emergency room by her mother. The patient has recurrent nausea and vomiting for approximately 4 weeks, got worse recently. According to the mother, this started after she had a vagal nerve stimulator placed at [facility]. The patient was evaluated in the emergency room on a couple of occasions for similar reasons, no etiology was found. Yesterday, she came to the emergency room and workup was suggestive of constipation. The patient came back with worsening nausea, vomiting and a CT abdomen and pelvis was done that showed a small opacity in the stomach. Talking with the nursing staff and with the mother, apparently the patient was given her p.o. medications including a large potassium pill and her seizure medications prior to CT of the abdomen and pelvis. Discussed with Dr. Monsalve who reviewed the studies in view of the above history and he agreed that the opacity seen in the stomach looks like a big pill. I doubt this is causing the patient's symptomatology. According to the mother, the patient is fed by aides but she is present during the feeding. There is no history of foreign body ingestion. PAST MEDICAL HISTORY: Cerebral palsy, development delayed, hydrocephalus, seizure disorder. PAST SURGICAL HISTORY: Bilateral inguinal hernia repair, retinal detachment, blind in left eye, retinal detachment left, PROTECTION ENGINEER shunt, shunt revision with vagal nerve stimulator, tongue clipping surgeries, abductor release and hip surgery. SOCIAL HISTORY: There is no history of smoking, drinking or drug use. ALLERGIES: CEFPROZIL, CODEINE, AND VANCOMYCIN. MEDICATIONS: Glycerin, Zofran, Geodon, Zonegran, Senokot, oxcarbazepine, citalopram, Ativan and Lamictal. REVIEW OF SYSTEMS: CONSTITUTIONAL: She denies any fever, chills, weight loss or weight gain. ENT: No alteration of baseline hearing or visual acuity. PULMONARY: Denies any chest pain, shortness of breath. GASTROINTESTINAL: As above. GENITOURINARY: Denies dysuria or hematuria. HEMATOLOGICAL: No history of anemia or bleeding disorder. SKIN: No alteration of baseline skin lesion. PHYSICAL EXAMINATION: GENERAL: She is sitting in bed in no acute distress. VITAL SIGNS: Her blood pressure is 130/68, pulse is 73, respirations 16. HEENT: PERRLA. NECK: No JVD. No lymphadenopathy. CHEST: Clear to auscultation and palpation. CARDIOVASCULAR: S1, S2. No murmur. ABDOMEN: Soft. Multiple scar tissue. Bowel sounds are present. CENTRAL NERVOUS SYSTEM: Awake, alert, oriented x3. GENERAL: She is very thin. LABORATORY DATA: Her CBC is normal. Her chemistry is essentially normal. IMAGING STUDIES: Her CT abdomen and pelvis showed gastric distention with an oval-shaped radiopaque density in the stomach. As discussed with the radiologist, most likely a pill, correlates with ingestion of pills prior to CT of abdomen and pelvis. CLINICAL IMPRESSION: 1. Nausea and vomiting, possible secondary to recent vagal nerve stimulator insertion. 2. Mild dilatation of the stomach. Possibly some degree of gastroparesis, although radiopaque density in stomach suggestive of a pill. RECOMMENDATIONS: Clear liquid diet, n.p.o. after midnight. Upper endoscopy in the morning if schedule permits, if not, on Saturday. Continue PPI, Zofran and Reglan. Supportive care. Discussed with mother. I would like to seeing Dr. Renay Galvan for referring her to our office for consultation. Further recommendation will depend on the patient's clinical status and the above results. Yoli Meade MD BSB/SB , 09:16 PM , 09:54 PM MONA
[2018-04-20] MEDS ORDERED: LACTATED RINGER'S 1000 ML IV PRN (22:45)
[2018-04-20] MEDS ORDERED: POVIDONE IODINE 5% (ANTISEPSIS KIT) 4 APPLICATIONS EACH NARE PRN (22:45)
[2018-04-20] MEDS ORDERED: CHLORHEXIDINE GLUCONATE 2 % 1 PACK (2 CLOTHS) TOPICAL PRN (22:45)
[2018-04-20] MEDS ORDERED: SODIUM CHLORID 0.9% 500 ML IV PRN (22:45)
[2018-04-20] MEDS ORDERED: METOPROLOL TARTRATE 25 MG TAB PO PRN (22:45)
[2018-04-20] MEDS: D5-1/2 NS + KCL 20 MEQ INJ 1,000 ML IV SCH (23:04)
[2018-04-21] VITALS (7 sets, daily range): BP systolic 112–122; BP diastolic 58–74; PULSE 62–70; RESP 18–20; TEMP 96.8–98.9; O2SAT 94–99
[2018-04-21 08:11] LABS: BASOPHIL % 0.7 % (0.0-2.0); EOSINOPHIL # 0.1 TH/MM3 (0-0.4); EOSINOPHIL % 2.4 % (0.0-4.0); HEMATOCRIT 38.6 % (35.0-46.0); HEMOGLOBIN 12.8 GM/DL (11.6-15.3); LYMPH % 25.9 % (9.0-44.0); LYMPHOCYTE # 0.8 TH/MM3 (1.0-4.8); MEAN CELL VOLUME 89.6 FL (80.0-100.0); MEAN CORPUSCULAR HEMOGLOBIN 29.8 PG (27.0-34.0); MEAN CORPUSCULAR HGB CONC 33.2 % (32.0-36.0); MEAN PLATELET VOLUME 7.4 FL (7.0-11.0); MONO % 9.1 % (0.0-8.0); MONOCYTE # 0.3 TH/MM3 (0-0.9); NEUT % 61.9 % (16.0-70.0); PLATELET COUNT 268 TH/MM3 (150-450); RED BLOOD COUNT 4.31 MIL/MM3 (4.00-5.30); RED CELL DISTRIBUTION WIDTH 13.4 % (11.6-17.2); WHITE BLOOD COUNT 3.2 TH/MM3 (4.0-11.0)
[2018-04-21 08:25] LABS: BICARBONATE 23.4 MEQ/L (21.0-32.0)
[2018-04-21 08:29] LABS: CREATININE 0.53 MG/DL (0.50-1.00)
[2018-04-21] MEDS: SODIUM CHLORIDE 0.9% FLUSH 10 ML FLUSH IV FLUSH SCH ×2 (09:00→19:57)
[2018-04-21] MEDS ORDERED: ZONISAMIDE 100 MG CAP PO SCH ×2 (10:00→21:00)
[2018-04-21] MEDS: lamoTRIgine 100 MG TAB PO SCH ×2 (10:35→20:50)
[2018-04-21] MEDS: LORazepam 0.5 MG TAB PO PRN (10:35)
[2018-04-21] MEDS: CITALOPRAM HYDROBROMIDE 20 MG TAB PO SCH (10:35)
[2018-04-21] MEDS: OXcarbazepine 300 MG TAB PO SCH ×2 (10:59→20:50)
[2018-04-21] MEDS: ZIPRASIDONE HCL 20 MG CAP PO SCH (11:00)
--- NOTE | 2018-04-21 11:46 | HHI.HP ---
[facility] Physician Emmett Casiano M.D. Admission Diagnosis nausea/vomiting,abdominal pain, ? foreign body ingestion,hypokalemia Diagnoses: (1) Intractable nausea and vomiting Diagnosis: Principal Chief Complaint: Intractable nausea vomiting Travel History International Travel<30 Days: No Contact w/Intl Traveler <30 Da: No Traveled to Known Affected Are: No History of Present Illness This is a 22-year-old female with known history of intractable seizures, cerebral palsy, normal pressure hydrocephalus who presented to the hospital again because of intractable nausea vomiting. Patient has had intractable nausea vomiting for months. She states that they have spoken with their primary call doctor and their neurologist in reference to the symptoms and condition. However family is mildly disgruntled that nothing can be done. The mother indicates that the primary doctor believes that it may be related to her vagal nerve stimulator, whereas her neurologist does not think that is the reason. Mother indicates that they do not have a rn telephonic. The patient just has had persistent recurrent nausea vomiting for months because of that they came to the emergency department for evaluation again. Patient had CT scan performed which did show gastric distention with oval-shaped radiopaque density in the stomach measuring 2.5 x 1.5 cm. ER physician did contact gastrologist reservations sales supervisor who recommended placement of NG tube, however family deferred placement. Is then recommend that the patient be admitted the hospital for further evaluation. Plans for EGD to be performed to evaluate for the radiopaque density. Upon seeing the patient this morning she appear to be doing quite well. She was smiling. Seem to be in good spirits. Family indicates the last time that she had any vomiting was yesterday in the emergency department. She was given Compazine at almost 7 PM last night and has not had any recurrent nausea or vomiting. Presently we are awaiting EGD to be performed. There was an episode this morning where nursing staff indicates that the mother stated that the patient was having a seizure. This was witnessed by the charge nurse as well as the nurse taking care of the patient. The patient was talking to them during the entire episode of extremity tremors. No loss of bowel or bladder control. No postictal state. Review of Systems Gastrointestinal: COMPLAINS OF: Nausea, Vomiting Past Family Social History Past Medical History Cerebral palsy Intractable seizures Normal pressure hydrocephalus Premature retinopathy with left eye blindness Past Surgical History LOAD TEST MECHANIC shunt Hip abductor release Left eye surgery for retinal detachment Bilateral inguinal hernia repair Tongue clipping Vagal nerve stimulator Reported Medications Reported Meds & Active Scripts Active Pedia-Lax Supp (Glycerin) 1 Gm Supp 1 Supp RECTAL ONCE PRN Zofran Odt (Ondansetron Odt) 4 Mg Tab 4 Mg SL Q6HR PRN Geodon (Ziprasidone) 60 Mg Cap 60 Mg PO HS Geodon (Ziprasidone) 20 Mg Cap 20 Mg PO DAILY Zonegran (Zonisamide) 100 Mg Cap 300 Mg PO DAILY Reported Senna-Tabs (Sennosides) 8.6 Mg Tab 8.6 Mg PO HS Oxcarbazepine 600 Mg Tab 900 Mg PO BID Citalopram (Citalopram Hydrobromide) 20 Mg Tab 30 Mg PO DAILY Ativan (Lorazepam) 0.5 Mg Tab 0.5 Mg PO Q6H PRN Lamictal (Lamotrigine) 100 Mg Tab 150 Mg PO BID Allergies: Coded Allergies: cefprozil (Verified Allergy, Severe, Swelling, 04/20/18) codeine (Verified Allergy, Severe, Nausea/Vomiting, 04/20/18) vancomycin (Verified Allergy, Severe, Rash, 04/20/18) Family History Reviewed is significant for mother with lupus, antiphospholipid syndrome, sjogren syndrome Social History Patient not use any tobacco, alcohol or illicit drugs Physical Exam Vital Signs Vital Signs Date Time Temp Pulse Resp B/P (MAP) Pulse Ox O2 Delivery O2 Flow Rate FiO2 04/21/18 00:00 96.8 68 20 117/61 (79) 97 04/20/18 22:08 98.5 72 20 122/67 (85) 96 04/20/18 21:50 98 21 04/20/18 20:50 04/20/18 20:07 73 16 130/68 (88) 98 Room Air 04/20/18 20:05 73 16 130/68 (88) 98 Room Air 04/20/18 17:53 100 21 04/20/18 16:57 72 16 108/47 (67) 100 Room Air 04/20/18 14:47 92 Room Air 04/20/18 14:14 98.0 102 22 141/85 (103) 92 Physical Exam GENERAL: Rather small stature female, well-nourished, in no acute distress. alert and orientated HEENT: Head is normocephalic without any lesions or masses noted. Facial features are symmetric. Eyes: Obvious left eye abnormality. Extraocular muscles are intact. Conjunctivae were clear. Oropharyngeal: Pharynx without any erythema edema. Tongue is midline without deviation. Buccal mucosa is moist without any masses or lesions NECK: Supple without any masses. Trachea midline no deviation. No JVD, no bruits are appreciated CARDIAC: Regular rhythm, regular rate. S1/S2 are heard. No murmurs gallops or rubs. LUNGS: Clear to auscultation bilaterally. No wheeze, rhonchi or rales. No use of accessory muscles on inspiration or expiration. ABDOMEN: Soft, nontender. Nondistended. Bowel sounds heard in all 4 quadrants. No organomegaly or masses. Negative rebound, negative guarding EXTREMITIES: No edema, pulses are equal bilaterally. No cyanosis or clubbing NEUROLOGY: Mood and affect appear appropriate. Cranial nerves II through XII grossly intact. Laboratory Laboratory Tests Test 04/20/18 14:41 04/20/18 14:42 04/21/18 08:05 Lactic Acid Level 1.2 White Blood Count 4.0 3.2 Red Blood Count 4.65 4.31 Hemoglobin 14.2 12.8 Hematocrit 41.5 38.6 Mean Corpuscular Volume 89.4 89.6 Mean Corpuscular Hemoglobin 30.5 29.8 Mean Corpuscular Hemoglobin Concent 34.1 33.2 Red Cell Distribution Width 13.3 13.4 Platelet Count 329 268 Mean Platelet Volume 7.8 7.4 Neutrophils (%) (Auto) 68.4 61.9 Lymphocytes (%) (Auto) 21.3 25.9 Monocytes (%) (Auto) 8.5 9.1 Eosinophils (%) (Auto) 0.6 2.4 Basophils (%) (Auto) 1.2 0.7 Neutrophils # (Auto) 2.9 2.0 Lymphocytes # (Auto) 0.8 0.8 Monocytes # (Auto) 0.3 0.3 Eosinophils # (Auto) 0.0 0.1 Basophils # (Auto) 0.0 0.0 CBC Comment DIFF FINAL DIFF FINAL Differential Comment Prothrombin Time 10.9 Prothromb Time International Ratio 1.1 Activated Partial Thromboplast Time 25.7 Blood Urea Nitrogen 5 3 Creatinine 0.69 0.53 Random Glucose 101 102 Total Protein 8.1 Albumin 4.2 Calcium Level 8.7 8.0 Alkaline Phosphatase 102 Aspartate Amino Transf (AST/SGOT) 13 Alanine Aminotransferase (ALT/SGPT) 24 Total Bilirubin 0.3 Sodium Level 143 142 Potassium Level 3.3 3.7 Chloride Level 108 112 Carbon Dioxide Level 24.9 23.4 Anion Gap 10 7 Estimat Glomerular Filtration Rate 107 146 Magnesium Level 2.6 Lipase 83 Human Chorionic Gonadotropin, Quant LESS THAN 1 Result Diagram: 04/21/18 0805 04/21/18 0805 Imaging Last Impressions Abdomen/Pelvis CT 04/20/18 1428 Signed Impressions: CONCLUSION: 1. Gastric distention with an oval-shaped radiopaque density in the stomach me asuring up to 2.5 x 1.5 cm. No bowel obstruction. Trace free fluid. No free air . 2. Stable appearance of ventriculoperitoneal shunt catheter. Small hiatal lynda ia. Caprini VTE Risk Assessment Caprini VTE Risk Assessment: Mod/High Risk (score >= 2) Caprini Risk Assessment Model Point Value = 1 Point Value = 2 Point Value = 3 Point Value = 5 Age 41-60 Minor surgery BMI > 25 kg/m2 Swollen legs Varicose veins or History of unexplained or recurrent spontaneous Oral contraceptives or hormone replacement Sepsis (< 1 month) Serious lung disease, including pneumonia (< 1 month) Abnormal pulmonary function Acute myocardial infarction Congestive heart failure (< 1 month) History of inflammatory bowel disease Medical patient at bed rest Age 61-74 Arthroscopic surgery Major open surgery (> 45 min) Laparoscopic surgery (> 45 min) Malignancy Confined to bed (> 72 hours) Immobilizing plaster cast Central venous access Age >= 75 History of VTE Family history of VTE Factor V Leiden Prothrombin [id number] Lupus anticoagulant Anticardiolipin antibodies Elevated serum homocysteine Heparin-induced thrombocytopenia Other congenital or acquired thrombophilia Stroke (< 1 month) Elective arthroplasty Hip, pelvis, or leg fracture Acute spinal cord injury (< 1 month) Prophylaxis Regimen Total Risk Factor Score Risk Level Prophylaxis Regimen 0-1 Low Early ambulation 2 Moderate Order ONE of the following: *Sequential Compression Device (SCD) *Heparin 5000 units SQ BID 3-4 Higher Order ONE of the following medications: *Heparin 5000 units SQ TID *Enoxaparin/Lovenox 40 mg SQ daily (WT < 150 kg, CrCl > 30 mL/min) *Enoxaparin/Lovenox 30 mg SQ daily (WT < 150 kg, CrCl > 10-29 mL/min) *Enoxaparin/Lovenox 30 mg SQ BID (WT < 150 kg, CrCl > 30 mL/min) AND/OR *Sequential Compression Device (SCD) 5 or more Highest Order ONE of the following medications: *Heparin 5000 units SQ TID (Preferred with Epidurals) *Enoxaparin/Lovenox 40 mg SQ daily (WT < 150 kg, CrCl > 30 mL/min) *Enoxaparin/Lovenox 30 mg SQ daily (WT < 150 kg, CrCl > 10-29 mL/min) *Enoxaparin/Lovenox 30 mg SQ BID (WT < 150 kg, CrCl > 30 mL/min) AND *Sequential Compression Device (SCD) Assessment and Plan Assessment and Plan Gastric distention with radiopaque density in a patient with intractable nausea vomiting -Patient has not had any recurrent nausea vomiting since being hospitalized -Continue Compazine as needed -Gastroenterology consulted who is recommending EGD for today -EGD was performed today which showed some mild gastritis. -Gastroenterology recommending gastric emptying study, however this cannot be performed until Saturday due to previous studies -Discussed with gastroenterology who indicated that if patient tolerates p.o. then she can be discharged and performed outpatient study, patient just had active nausea and vomiting after returning from endoscopy. -Anticipate if the patient tolerates p.o. we can discharge home with outpatient gastric imaging study to be scheduled, however if patient does not tolerate p.o. patient will likely require continued hospitalization until test can be performed inpatient on Saturday. Seizure disorder -Ativan as needed for seizures -Continue home antiepileptics -Seizure precautions DVT prevention -Sequential compression devices Problem Qualifiers (1) Intractable nausea and vomiting: Qualified Codes: R11.2 - Nausea with vomiting, unspecified Odell Ac Apr 21, 2018 11:46
--- NOTE | 2018-04-21 15:24 | GIPROC ---
[address], [address] EGD PROCEDURE REPORT EXAM DATE: 04/21/2018 PATIENT NAME: Ashley Collier MR #: [id number] BIRTHDATE: 1995 ATTENDING: Yoli Meade MD ORDER #: [id number] RAPIER INSERTION LOOM FIXER: Gilles Buckley STATUS: inpatient INDICATIONS: The patient is a 22 yr old female here for an EGD due to nausea, vomiting PROCEDURE PERFORMED: EGD w/ biopsy MEDICATIONS: None and Per Anesthesia. TOPICAL ANESTHETIC: none CONSENT: The patient understands the risks and benefits of the procedure and understands that these risks include, but are not limited to: sedation, allergic reaction, infection, perforation and/or bleeding. Alternative means of evaluation and treatment include, among others: physical exam, x-rays, and/or surgical intervention. The patient elects to proceed with this endoscopic procedure. medical equipment was checked for proper function. Hand hygiene and appropriate measures for infection prevention was taken. After the risks, benefits and alternatives of the procedure were thoroughly explained, Informed consent was verified, confirmed and timeout was successfully executed by the treatment team. The patient was anesthetized with topical anesthesia and the Pentax EG-[id number] endoscope was introduced through the mouth and advanced to the second portion of the duodenum. Retroflexed views revealed a hiatal hernia The gastroscope was then slowly withdrawn and removed. Gastritis antrum-biopsy. ADVERSE EVENTS: There were no complications. IMPRESSIONS: 1. Gastritis antrum-biopsy 2. Retroflexed views revealed a hiatal hernia RECOMMENDATIONS: 1. Await biopsy results. Biopsy results will not be ready for 7-10 days. If you don't hear from us in two weeks, call our office for biopsy results. 2. Anti-reflux regimen 3. Continue PPI 4. Start PPI 5. Clear liquid diet gastric emptying study PATIENT CONDITION: stable DISPOSITION: Inpatient REPEAT EXAM: Return 1 year EGD Yoli Meade MD eSigned: Yoli Meade MD 04/21/2018 3:23 PM cc:
[2018-04-21] MEDS: D5-1/2 NS + KCL 20 MEQ INJ 1,000 ML IV SCH (18:09)
[2018-04-21] MEDS: PROCHLORPERAZINE INJ 10 MG/2 ML VIAL IV PUSH PRN (20:51)
[2018-04-21] MEDS ORDERED: ZIPRASIDONE HCL 60 MG CAP PO SCH (21:00)
[2018-04-22 00:05] VITALS: BP 116/74; PULSE 72; RESP 18; TEMP 97.9; O2SAT 98
[2018-04-22 01:45] VITALS: BP 116/74; PULSE 72; RESP 18; TEMP 97.9; O2SAT 98
[2018-04-22] MEDS: D5-1/2 NS + KCL 20 MEQ INJ 1,000 ML IV SCH (03:14)
[2018-04-22 06:35] VITALS: BP 111/73; PULSE 79; RESP 18; TEMP 97.8; O2SAT 98
[2018-04-22 08:30] VITALS: BP 122/74; PULSE 77; RESP 18; TEMP 97.6; O2SAT 97
--- NOTE | 2018-04-22 08:48 | HHI.PR ---
Subjective Remarks Follow-up intractable gastric distention and nausea and vomiting. Patient seen and examined, mother at bedside. Lying in bed comfortably no apparent distress. No reports of any acute events overnight, last bout of emesis was yesterday evening around 7 PM. Denies any continued nausea or vomiting since then. Will advance diet to full liquid and assess tolerance. Possible discharge later today if resolution of symptoms. Cerebral palsy and seizure disorder controlled. No reports of any seizures overnight. Denies any chest pain or shortness of breath. Vital signs stable. Afebrile. Objective Vitals Vital Signs Date Time Temp Pulse Resp B/P (MAP) Pulse Ox O2 Delivery O2 Flow Rate FiO2 04/22/18 08:30 97.6 77 18 122/74 (90) 97 04/22/18 06:35 97.8 79 18 111/73 (86) 98 04/22/18 01:45 97.9 72 18 116/74 (88) 98 04/22/18 00:05 97.9 72 18 116/74 (88) 98 04/21/18 20:30 98 21 04/21/18 20:15 98.9 70 18 118/69 (85) 99 04/21/18 15:35 65 14 123/81 (95) 99 04/21/18 15:25 98.5 79 14 121/71 (88) 100 04/21/18 14:37 98.4 65 18 122/74 (90) 94 04/21/18 12:41 99 21 04/21/18 11:50 98.3 69 20 115/59 (77) 97 I/O 04/21/18 04/21/18 04/21/18 04/22/18 04/22/18 04/22/18 07:00 15:00 23:00 07:00 15:00 23:00 Intake Total 500 ml 1100 ml 2049 ml Balance 500 ml 1100 ml 2049 ml Intake Oral 0 ml IV Total 500 ml 1000 ml 2049 ml Other 100 ml # Voids 3 4 3 # Bowel Movements 0 1 Result Diagram: 04/21/18 0804/21/18 08 Imaging Last Impressions Abdomen/Pelvis CT 04/20/18 4770 Signed Impressions: CONCLUSION: 1. Gastric distention with an oval-shaped radiopaque density in the stomach me asuring up to 2.5 x 1.5 cm. No bowel obstruction. Trace free fluid. No free air . 2. Stable appearance of ventriculoperitoneal shunt catheter. Small hiatal lynda ia. Objective Remarks GENERAL: Rather small stature female, well-nourished, in no acute distress. alert and orientated HEENT: Head is normocephalic without any lesions or masses noted. Facial features are symmetric. Eyes: Obvious left eye abnormality. Extraocular muscles are intact. Conjunctivae were clear. Oropharyngeal: Pharynx without any erythema edema. Tongue is midline without deviation. Buccal mucosa is moist without any masses or lesions NECK: Supple without any masses. Trachea midline no deviation. No JVD, no bruits are appreciated CARDIAC: Regular rhythm, regular rate. S1/S2 are heard. No murmurs gallops or rubs. LUNGS: Clear to auscultation bilaterally. No wheeze, rhonchi or rales. No use of accessory muscles on inspiration or expiration. ABDOMEN: Soft, nontender. Nondistended. Bowel sounds heard in all 4 quadrants. No organomegaly or masses. Negative rebound, negative guarding EXTREMITIES: No edema, pulses are equal bilaterally. No cyanosis or clubbing NEUROLOGY: Mood and affect appear appropriate. Cranial nerves II through XII grossly intact. A/P Problem List: (1) Intractable nausea and vomiting ICD Code: R11.2 - Nausea with vomiting, unspecified Assessment and Plan Gastric distention with radiopaque density in a patient with intractable nausea vomiting -Patient had one bout of emesis last evening around 7pm. Since then has been tolerating clear liquids. Will advance to full liquids and assess tolerance. -Continue Compazine as needed -Gastroenterology consulted who performed an EGD yesterday, showing some mild gastritis. -Gastroenterology recommending gastric emptying study, however this cannot be performed until Saturday due to previous studies. -Discussed with gastroenterology who indicated that if patient tolerates p.o. then she can be discharged and performed outpatient study, will continue to assess tolerance to PO intake. -Anticipate if the patient tolerates p.o. we can discharge home with outpatient gastric imaging study to be scheduled, however if patient does not tolerate p.o. patient will likely require continued hospitalization until test can be performed inpatient on Saturday. Seizure disorder -Ativan as needed for seizures -Continue home antiepileptics -Seizure precautions DVT prevention -Sequential compression devices Discharge Planning Will DC home. Patient tolerating PO intake without any abdominal pain, nausea or vomiting. Referral to GI outpatient with recs to undergo a gastric emptying study. Mother and patient aware of importance of follow up and agrees. Dr. Meade updated on improvement and DC to home with orders to follow up. Patient is stable at this time and agreeable to the plan. Problem Qualifiers (1) Intractable nausea and vomiting: Qualified Codes: R11.2 - Nausea with vomiting, unspecified Khalida Mixon Apr 22, 2018 08:48
[2018-04-22] MEDS: ZIPRASIDONE HCL 20 MG CAP PO SCH (10:24)
[2018-04-22] MEDS: CITALOPRAM HYDROBROMIDE 20 MG TAB PO SCH (10:25)
[2018-04-22] MEDS: LORazepam 0.5 MG TAB PO PRN (10:25)
[2018-04-22] MEDS: OXcarbazepine 300 MG TAB PO SCH (10:25)
[2018-04-22] MEDS: lamoTRIgine 100 MG TAB PO SCH (10:25)
[2018-04-22] MEDS: SODIUM CHLORIDE 0.9% FLUSH 10 ML FLUSH IV FLUSH SCH (10:25)
[2018-04-22] MEDS ORDERED: LIDOCAINE HCL 1% PF 5 ML SYRINGE OTHER ONE (12:00)
[2018-04-22] MEDS ORDERED: PROPOFOL 200 MG/20 ML AMP IV ONE (12:00)
[2018-04-22 13:32] VITALS: BP 120/67; PULSE 58; RESP 16; TEMP 97.6; O2SAT 97
--- NOTE | 2018-04-22 14:34 | HHI.DCPOC ---
Discharge Care Plan Diagnosis: (1) Intractable nausea and vomiting (2) Abdominal pain (3) Seizure disorder (4) Cerebral palsy (5) Hypokalemia Goals to Promote Your Health * To prevent worsening of your condition and complications * To maintain your health at the optimal level Directions to Meet Your Goals Take your medications as prescribed Follow your dietary instruction Follow activity as directed Keep your appointments as scheduled Take your immunizations and boosters as scheduled If your symptoms worsen call your PCP, if no PCP go to Urgent Care Center or Emergency Room Smoking is Dangerous to Your Health. Avoid second hand smoke Call the 24-hour hour crisis hotline for domestic abuse at Khalida Mixon Apr 22, 2018 14:34
== END 2018-04-22 15:33 | disposition home or self-care (01) ==
LOC: PHED 14:02 → PHEDA 17:32 → PH3A 21:00
PROVIDERS: ADMIT Hospitalist; ATTEND Hospitalist
DX: K29.70 Gastritis, unspecified, without bleeding (principal); K44.9 Diaphragmatic hernia without obstruction or gangrene; G40.909 Epilepsy, unspecified, not intractable, without status epilepticus; E87.6 Hypokalemia; G91.2 (Idiopathic) normal pressure hydrocephalus; G80.9 Cerebral palsy, unspecified; H54.62 Unqualified visual loss, left eye, normal vision right eye; H33.22 Serous retinal detachment, left eye; Z98.2 Presence of cerebrospinal fluid drainage device; H35.109 Retinopathy of prematurity, unspecified, unspecified eye; R62.50 Unspecified lack of expected normal physiological development in childhood
CPT/HCPCS: 00731; 43239; 74176; 80048; 80053; 82948; 83605; 83690; 83735; 84702; 85025; 85610; 85730; 88305; 96361; 96365; 96366; 96375; 96376; 99285; G0378; J0780; J3480; J7030; J7040; J3010